=== PATIENT | female | born 1950 | race Caucasian/White ===

== ENCOUNTER 2019-10-10 12:25 | Inpatient (IN) | payer MEDICARE, SELFPAY ==
[2019-10-10 14:38] VITALS: BP 134/70; PULSE 98; RESP 16; TEMP 37; O2SAT 95; BMI 31.8
--- NOTE | 2019-10-10 15:22 | ED_ITS ---
Documented by User: LAUREN Mercedes 10/10/19 17:39 HPI - Skin/Abscess/Foreign Bdy General: Chief complaint: Skin/Abscess/Foreign Body Stated complaint: abscess Time Seen by Provider: 10/10/19 15:08 History of Present Illness: HPI narrative: Patient is a 68-year-old female comes to the ED due to abscess. Patient was seen yesterday at [facility] and abscess was incised and drained. Patient says packing was placed and abscess wa s draining bloody and purulent drainage all night last night. Today patient complains of having more pain. Patient went back to [facility] today and they evaluated abscess and thought patient needed to come to the ED for reevaluation and IV antibiotics. Patient was put on antibiotic (clindamycin) last night and is taken 2 doses of it. Patient did say last night she felt like she had a fever and chills. No history of MRSA or staph infections. Associated symptoms: Reports fever(s); Deny chills, nausea or vomiting Review of Systems Const: Reports: fever(s); Denies: chills or fatigue Eyes: Denies: change in vision or eye discomfort ENMT: Denies: throat pain, odynophagia, nasal discharge or nasal congestion Card: Denies: chest pain, palpitations, edema, swelling of feet/ankles, dyspnea on exertion or orthopnea Resp: Denies: dyspnea, productive cough or non-productive cough GI: Denies: abdominal pain, nausea, vomiting, diarrhea, constipation or hematochezia : Denies: flank pain, dysuria or hematuria Musc: Denies: neck pain, back pain or extremity swelling Skin/Breast: Reports: new lesions (genital abscess); Denies: rash Neuro: Denies: headache(s), numbness in extremities or weakness in extremities PFSH ED PFSH: Social History Smoking and tobacco status: never smoked Physical Exam Const: COMMON NORMALS: no acute distress, patient oriented x3 and alert GENERAL APPEARANCE: cooperative HENMT: COMMON NORMALS: normocephalic HEAD & SCALP: normocephalic MOUTH: Normal oral and palatal mucosa present THROAT: posterior oropharynx normal and uvula midline Eye: COMMON NORMALS: Equal, round and reactive pupils present PUPIL: Yes Equal, round and reactive pupils present Neck/C-Spine: COMMON NORMALS: supple GENERAL: Yes normal visual inspection Resp: COMMON NORMALS: normal respiratory effort, No retractions, No use of accessory muscles and clear to auscultation bilaterally AUSCULTATION: clear to auscultation bilaterally Cardio: COMMON NORMALS: regular rate, regular rhythm, S1 normal heart sound present, S2 normal heart sound present, No gallops present (Cardio), No clicks present (Cardio), No murmurs present (Cardio) and Peripheral pulses 2+ throughout RATE: regular rate RHYTHM: regular rhythm HEART SOUNDS: S1 normal heart sound present and S2 normal heart sound present PERIPHERAL PULSES: Peripheral pulses 2+ throughout GI: COMMON NORMALS: Normal to inspection, nondistended, normoactive bowel sounds present, Soft to palpation, non-tender and no masses PALPATION: Yes Soft to palpation : COMMON NORMALS: Yes no CVA tenderness BLADDER/KIDNEY EXAM: Yes no CVA tenderness EXTERNAL FEMALE EXAM: Yes lesion left labial pustule (Tender, abscess that is currently draining thick malodorous purulent discharge.) 2.5 cm Back/Pelvis: COMMON NORMALS: no CVA tenderness Extremity: COMMON NORMALS: normal to inspection and no pedal edema Neuro: COMMON NORMALS: patient oriented x3 and moves all extremities SENSORIUM/ORIENTATION: Yes alert Skin: NARRATIVE SKIN EXAM: Patient currently has Bartholin's abscess on left labia majora. It is currently open and actively draining. It is extremely tender and has surrounding erythema. Course Consultations: Consultation #1: I contacted Dr. Thomas about patient's case to get his input on patient's care. He informed me that to properly drain a bartholin's abscess there needs to be about a 1cm long incision to properly drain abscess. A smaller incision will now allow proper drainage. I told Dr. Thomas that current incision is very small and he told me perform another I&D and create 1cm long incision to allow it to drain. He said the antibiotics of vanc and clinda are fine, but if you properly drain it will get better. Time: 17:21 Vital Signs: Vital signs: Vital Signs Temperature 98.6 F 10/10/19 14:38 Pulse Rate 99 10/10/19 18:18 Respiratory Rate 14 10/10/19 18:18 Blood Pressure 117/67 10/10/19 18:18 Pulse Oximetry 92 10/10/19 18:18 MDM - Skin/Abscess/Foreign Bdy MDM Narrative: Medical decision making narrative: Pt care was handed over to Emma Gunn PA-C. I told Emma about my consult with Dr. Thomas and a 1cm long incision should be made to better drain abscess. Pt started on IV Clindamycin and vancomycin. WBC of 16.3 and Cr of 1.4. She was given IV zofran and morphine for pain. Emma will be performing the I & D and then will manage discharge. Lab Data: Attestation: I reviewed the patient's lab results. Labs: Lab Results 10/10/19 10/10/19 10/10/19 Range/Units 16:45 16:45 16:45 WBC 16.3 H (4.0-10.0) 10^3/ uL RBC 3.10 L (4.1-5.3) 10^6/u L Hgb 10.6 L (11.5-15.3) g/dL Hct 33.3 L (37.0-47.0) % MCV 107.4 H (81-99) fL MCH 34.2 H (28.0-34.0) pg MCHC 31.8 (30.0-36.0) g/dL RDW 14.0 (12.1-15.1) % Plt Count 206 (130-400) 10^3/c mm MPV 9.3 (7.4-10.4) fL Neut % (Auto) 78.3 % Lymph % (Auto) 11.2 % Sutter % (Auto) 6.9 % Eos % (Auto) 2.8 % Baso % (Auto) 0.4 % Neut # (Auto) 12.8 H (1.8-7.7) 10^3/u L Lymph # (Auto) 1.8 (0.8-4.8) 10^3/u L Sutter # (Auto) 1.1 H (0.2-0.9) 10^3/u L Eos # (Auto) 0.5 (0.0-0.8) 10^3/u L Baso # (Auto) 0.1 (0.0-0.1) 10^3/u L Nucleated RBC % (a uto) 0 % Nucleated RBCs # 0.0 /100WBC ESR 68 H (0-15) mm/hr Sodium 138 (136-145) mmol/L Potassium 4.8 (3.5-5.1) mmol/L Chloride 98 (98-107) mmol/L Carbon Dioxide 25 (22-29) mmol/L Anion Gap 19.8 H (5-19) BUN 17 (8-23) mg/dL Creatinine 1.4 H (0.5-0.9) mg/dL GFR Calculation 37.3 L (90-130) mL/min Glucose 141 H (65-115) mg/dL Estimat Average Gl ucose Hemoglobin A1c (4.0-6.0) % Calculated Osmolal ity 285 (285-295) mOsm/k g Lactate (0.5-2.2) mmol/L Calcium 9.4 (8.5-10.5) mg/dL Total Bilirubin 0.3 (0.15-1.2) mg/dL AST 29 (0-32) U/L ALT 34 H (0-33) U/L Alkaline Phosphata se 81 (35-105) IU/L C-Reactive Protein 129.5 H (0.0-4.9) mg/L Total Protein 6.4 L (6.6-8.7) g/dL Albumin 3.9 (3.5-5.2) g/dL Globulin 2.5 (1.3-4.6) g/dL 10/10/19 10/10/19 Range/Units 16:45 16:45 WBC (4.0-10.0) 10^3/ uL RBC (4.1-5.3) 10^6/u L Hgb (11.5-15.3) g/dL Hct (37.0-47.0) % MCV (81-99) fL MCH (28.0-34.0) pg MCHC (30.0-36.0) g/dL RDW (12.1-15.1) % Plt Count (130-400) 10^3/c mm MPV (7.4-10.4) fL Neut % (Auto) % Lymph % (Auto) % Sutter % (Auto) % Eos % (Auto) % Baso % (Auto) % Neut # (Auto) (1.8-7.7) 10^3/u L Lymph # (Auto) (0.8-4.8) 10^3/u L Sutter # (Auto) (0.2-0.9) 10^3/u L Eos # (Auto) (0.0-0.8) 10^3/u L Baso # (Auto) (0.0-0.1) 10^3/u L Nucleated RBC % (a uto) % Nucleated RBCs # /100WBC ESR (0-15) mm/hr Sodium (136-145) mmol/L Potassium (3.5-5.1) mmol/L Chloride (98-107) mmol/L Carbon Dioxide (22-29) mmol/L Anion Gap (5-19) BUN (8-23) mg/dL Creatinine (0.5-0.9) mg/dL GFR Calculation (90-130) mL/min Glucose (65-115) mg/dL Estimat Average Gl ucose 151 Hemoglobin A1c 6.9 H (4.0-6.0) % Calculated Osmolal ity (285-295) mOsm/k g Lactate 0.2 L (0.5-2.2) mmol/L Calcium (8.5-10.5) mg/dL Total Bilirubin (0.15-1.2) mg/dL AST (0-32) U/L ALT (0-33) U/L Alkaline Phosphata se (35-105) IU/L C-Reactive Protein (0.0-4.9) mg/L Total Protein (6.6-8.7) g/dL Albumin (3.5-5.2) g/dL Globulin (1.3-4.6) g/dL Discharge Plan Discharge Patient Disposition: Admitted As Inpatient Clinical Impression: Abscess, perianal Diabetes Qualifiers: Diabetes mellitus type: type 2 Condition: Stable Referrals: Rosalino Almaraz DO [Primary Care Provider] - Sign Out Sign Out Data: Patient Sign Out occurred on 10/10/19 at 17:20. Patient's care was discussed, and care was transferred from to LAUREN Marrero. Coding Level of Care Code ED Assistant County Attorney for [employer]g Fwd Exam Comprehensive Documented by User: LAUREN Marrero 10/10/19 19:36 HPI - Skin/Abscess/Foreign Bdy General: Chief complaint: Skin/Abscess/Foreign Body Stated complaint: abscess Time Seen by Provider: 10/10/19 15:08 Source: patient Limitations: no limitations History of Present Illness: HPI narrative: Patient is a 68-year-old female who presents to ED today with an abscess to her perineal region. Patient was seen at [facility] yesterday and had abscess incised and drained. They had placed packing in the abscess but patient tells me it fell out in the middle of the night. She was seen again at their facility today and told to come to the emerg ency department for further evaluation. Patient tells me she was soaking through her dressings in the middle of the night due to the amount of discharge/drainage. She tells me she was running fevers of 102 throughout the night and was soaking her bed sheets because she was sweating. Patient is a diabetic-reports sugars normally run in the 130s. She reports an extremely painful bowel movement earlier today. MD complaint: abscess/boil Onset (ago): day(s) Tetanus up to date: yes Location: genitals (perineal region) Associated symptoms: Reports chills and fever(s); Deny nausea or vomiting Review of Systems Const: Reports: fever(s), chills and night sweats; Denies: body aches, fatigue or malaise Card: Denies: chest pain Resp: Denies: dyspnea GI: Reports: pain on defecation; Denies: abdominal pain, nausea or vomiting : Denies: flank pain, difficulty voiding, dysuria, urinary frequency, urinary urgency or urinary hesitancy Musc: Denies: neck pain or back pain Skin/Breast: Reports: other (abscess) [facility] ED PFSH: Social History Smoking and tobacco status: never smoked Physical Exam Const: COMMON NORMALS: no acute distress, patient oriented x3, no limitations and alert Resp: COMMON NORMALS: normal respiratory effort and clear to auscultation bilaterally AUSCULTATION: clear to auscultation bilaterally Cardio: COMMON NORMALS: regular rhythm RATE: tachycardic (mild-102) RHYTHM: regular rhythm GI: COMMON NORMALS: Normal to inspection, nondistended, normoactive bowel sounds present, Soft to palpation, non-tender, No hepatosplenomegaly present and no masses PALPATION: Yes Soft to palpation and Yes No hepatosplenomegaly present OTHER: pt has a large 2-3 inch indurated abscess to L anorectal region; it is about 1-2cm lateral to L anal verge and very tender to palpation; there is a small incision that was made yesterday that has now closed; area is erythematous Neuro: COMMON NORMALS: patient oriented x3 SENSORIUM/ORIENTATION: Yes alert Course Consultations: Consultation #1: Dr. Crowell-will consult on patient while in hospital Additional Consultation(s): Dr. Dwyer-will admit patient Vital Signs: Vital signs: Vital Signs Temperature 98.6 F 10/10/19 14:38 Pulse Rate 99 10/10/19 18:18 Respiratory Rate 14 10/10/19 18:18 Blood Pressure 117/67 10/10/19 18:18 Pulse Oximetry 92 10/10/19 18:18 MDM - Skin/Abscess/Foreign Bdy MDM Narrative: Medical decision making narrative: pt has reported fevers of 102, white count of 16,000, elevated ESR/CRP, and is a diabetic; spoke to general surgery who agrees she needs to come in for IV abx; he will evaluate her in the morning; spoke to hospitalist who will admit Lab Data: Labs: Lab Results 10/10/19 10/10/19 10/10/19 Range/Units 16:45 16:45 16:45 WBC 16.3 H (4.0-10.0) 10^3/ uL RBC 3.10 L (4.1-5.3) 10^6/u L Hgb 10.6 L (11.5-15.3) g/dL Hct 33.3 L (37.0-47.0) % MCV 107.4 H (81-99) fL MCH 34.2 H (28.0-34.0) pg MCHC 31.8 (30.0-36.0) g/dL RDW 14.0 (12.1-15.1) % Plt Count 206 (130-400) 10^3/c mm MPV 9.3 (7.4-10.4) fL Neut % (Auto) 78.3 % Lymph % (Auto) 11.2 % Sutter % (Auto) 6.9 % Eos % (Auto) 2.8 % Baso % (Auto) 0.4 % Neut # (Auto) 12.8 H (1.8-7.7) 10^3/u L Lymph # (Auto) 1.8 (0.8-4.8) 10^3/u L Sutter # (Auto) 1.1 H (0.2-0.9) 10^3/u L Eos # (Auto) 0.5 (0.0-0.8) 10^3/u L Baso # (Auto) 0.1 (0.0-0.1) 10^3/u L Nucleated RBC % (a uto) 0 % Nucleated RBCs # 0.0 /100WBC ESR 68 H (0-15) mm/hr Sodium 138 (136-145) mmol/L Potassium 4.8 (3.5-5.1) mmol/L Chloride 98 (98-107) mmol/L Carbon Dioxide 25 (22-29) mmol/L Anion Gap 19.8 H (5-19) BUN 17 (8-23) mg/dL Creatinine 1.4 H (0.5-0.9) mg/dL GFR Calculation 37.3 L (90-130) mL/min Glucose 141 H (65-115) mg/dL Estimat Average Gl ucose Hemoglobin A1c (4.0-6.0) % Calculated Osmolal ity 285 (285-295) mOsm/k g Lactate (0.5-2.2) mmol/L Calcium 9.4 (8.5-10.5) mg/dL Total Bilirubin 0.3 (0.15-1.2) mg/dL AST 29 (0-32) U/L ALT 34 H (0-33) U/L Alkaline Phosphata se 81 (35-105) IU/L C-Reactive Protein 129.5 H (0.0-4.9) mg/L Total Protein 6.4 L (6.6-8.7) g/dL Albumin 3.9 (3.5-5.2) g/dL Globulin 2.5 (1.3-4.6) g/dL 10/10/19 10/10/19 Range/Units 16:45 16:45 WBC (4.0-10.0) 10^3/ uL RBC (4.1-5.3) 10^6/u L Hgb (11.5-15.3) g/dL Hct (37.0-47.0) % MCV (81-99) fL MCH (28.0-34.0) pg MCHC (30.0-36.0) g/dL RDW (12.1-15.1) % Plt Count (130-400) 10^3/c mm MPV (7.4-10.4) fL Neut % (Auto) % Lymph % (Auto) % Sutter % (Auto) % Eos % (Auto) % Baso % (Auto) % Neut # (Auto) (1.8-7.7) 10^3/u L Lymph # (Auto) (0.8-4.8) 10^3/u L Sutter # (Auto) (0.2-0.9) 10^3/u L Eos # (Auto) (0.0-0.8) 10^3/u L Baso # (Auto) (0.0-0.1) 10^3/u L Nucleated RBC % (a uto) % Nucleated RBCs # /100WBC ESR (0-15) mm/hr Sodium (136-145) mmol/L Potassium (3.5-5.1) mmol/L Chloride (98-107) mmol/L Carbon Dioxide (22-29) mmol/L Anion Gap (5-19) BUN (8-23) mg/dL Creatinine (0.5-0.9) mg/dL GFR Calculation (90-130) mL/min Glucose (65-115) mg/dL Estimat Average Gl ucose 151 Hemoglobin A1c 6.9 H (4.0-6.0) % Calculated Osmolal ity (285-295) mOsm/k g Lactate 0.2 L (0.5-2.2) mmol/L Calcium (8.5-10.5) mg/dL Total Bilirubin (0.15-1.2) mg/dL AST (0-32) U/L ALT (0-33) U/L Alkaline Phosphata se (35-105) IU/L C-Reactive Protein (0.0-4.9) mg/L Total Protein (6.6-8.7) g/dL Albumin (3.5-5.2) g/dL Globulin (1.3-4.6) g/dL Imaging Data^: CT Abd/Pel: Radiologist's impression: [address] [address] [address] Scan Report Signed Patient: Milagro Olivarez Unit #: [id number] : 1950 Age/Sex: 68 / F ADM Date: 10/10/19 Loc: ER Room/Bed: Attending Dr: Ordering Provider/Ordering MD: Emma Gunn Date of Service: 10/10/19 Procedure(s): CT pelvis w con* [id number] Accession Number(s): [id number] Report Number: [id number] PROCEDURE INFORMATION: Exam: CT Pelvis With Contrast Exam date and time: 10/10/2019 5:35 PM Age: 68 years old Clinical indication: Other: Perianal abscess; Perianal pain; Prior surgery; Surgery type: Hysto, appy; Additional info: Perirectal/perianal abscess TECHNIQUE: Imaging protocol: Computed tomography images of the pelvis with intravenous contrast. Radiation optimization: All CT scans at this facility use at least one of these dose optimization techniques: automated exposure control; mA and/or kV adjustment per patient size (includes targeted exams where dose is matched to clinical indication); or iterative reconstruction. Contrast material: VISI 320; Contrast volume: 95 ml; Contrast route: INTRAVENOUS (IV); COMPARISON: No relevant prior studies available. RADIATION DOSE METRICS: Total DLP (mGy-cm): 1011.7 FINDINGS: Stomach and bowel: Mild diverticulosis is present in the distal colon. There is no evidence of colitis/diverticulitis. There is no evidence of intestinal perforation or obstruction. Appendix: No evidence of appendicitis. Intraperitoneal space: Unremarkable. No free air. No significant fluid collection. Vasculature: The aorta demonstrates mild atherosclerotic calcification. Lymph nodes: Multiple subcentimeter lymph nodes are noted in the groin bilaterally. There is a lymph node in the left groin that measures 1.3 cm in short axis. Bladder: There is nonspecific bladder wall thickening. This may be related to incomplete distention. Reproductive: Normal as visualized. There has been a hysterectomy. Bones/joints: There are [id number] degenerative changes in the spine and hips. Soft tissues: There is prominent soft tissue density and skin thickening in the left perianal region compatible with infection/phlegmon without an abscess. No gas in the soft tissues of the perineum. No additional inflammatory changes or phlegmon. The left perianal phlegmon has ill-defined borders without a well-defined enhancing rim. And measures 3.2 x 5.9 by 5.6 cm (superior to inferior, medial to lateral, AP) in size. Other findings: Mild wall thickening of the anus is noted. CT/CT pelvis w con* [id number] IMPRESSION: Prominent left perianal infection/phlegmon without a peripherally enhancing fluid collection or distinct abscess. Radiation Dose CTDIVOL = (mGy): DLP = 1011.7 (mGy-cm) Dictated By: Alis Robison Signed By: Alis Robison Signed Date/Time: 10/10/191821 DD/ 19 Discharge Plan Discharge Patient Disposition: Admitted As Inpatient Clinical Impression: Abscess, perianal Diabetes Qualifiers: Diabetes mellitus type: type 2 Condition: Stable Referrals: Rosalino Almaraz DO [Primary Care Provider] - Sign Out Sign Out Data: Patient Sign Out occurred on 10/10/19 at 17:20. Patient's care was discussed, and care was transferred from to LAUREN Marrero. Coding Level of Care Code ED Assistant County Attorney for Chg Fwd Exam Comprehensive
[2019-10-10] MEDS: HYDROcodone-acetaminophen 7.5-325 mg Tablet 1 TAB PO (16:11)
[2019-10-10 16:16] VITALS: BP 147/69; PULSE 102; RESP 14; O2SAT 96
[2019-10-10 16:52] LABS: Basophils # 0.1 10^3/uL (0.0-0.1); Basophils % 0.4 %; Eosinophils # 0.5 10^3/uL (0.0-0.8); Eosinophils % 2.8 %; Hematocrit 33.3 % (37.0-47.0); Hemoglobin 10.6 g/dL (11.5-15.3); Lymphocytes # 1.8 10^3/uL (0.8-4.8); Lymphocytes % 11.2 %; Mean Corpuscular HGB Conc 31.8 g/dL (30.0-36.0); Mean Corpuscular Hemoglobin 34.2 pg (28.0-34.0); Mean Corpuscular Volume 107.4 fL (81-99); Mean Platelet Volume 9.3 fL (7.4-10.4); Monocytes # 1.1 10^3/uL (0.2-0.9); Monocytes % 6.9 %; Neutrophils # 12.8 10^3/uL (1.8-7.7); Neutrophils % 78.3 %; Nucleated Red Blood Cells % 0 %; Platelet Count 206 10^3/cmm (130-400); White Blood Count 16.3 10^3/uL (4.0-10.0)
[2019-10-10] MEDS: morphine 4 mg/mL SDV 1 mL IVP ×2 (17:03→19:44)
[2019-10-10] MEDS: ondansetron 2 mg/ML SDV 2 mL 4 MG IVP (17:03)
[2019-10-10] MEDS: clindamycin 600 MG/50 ML PREMIX 100 MG IV (17:04)
[2019-10-10] MEDS: sodium chloride 0.9% 500 ML IV (17:04)
[2019-10-10 17:09] LABS: Alanine Aminotransferase 34 U/L (0-33); Albumin Level 3.9 g/dL (3.5-5.2); Alkaline Phosphatase 81 IU/L (35-105); Anion Gap 19.8 (5-19); Aspartate Amino Transferase 29 U/L (0-32); Blood Urea Nitrogen 17 mg/dL (8-23); Calcium 9.4 mg/dL (8.5-10.5); Carbon Dioxide 25 mmol/L (22-29); Chloride 98 mmol/L (98-107); Globulin 2.5 g/dL (1.3-4.6); Glomerular Filtration Rate 37.3 mL/min (90-130); Glucose 141 mg/dL (65-115); Osmolality Calculated 285 mOsm/kg (285-295); Potassium 4.8 mmol/L (3.5-5.1); Sodium 138 mmol/L (136-145); Total Bilirubin 0.3 mg/dL (0.15-1.2); Total Protein 6.4 g/dL (6.6-8.7)
--- NOTE | 2019-10-10 17:29 | CTR_ITS ---
PROCEDURE INFORMATION: Exam: CT Pelvis With Contrast Exam date and time: 10/10/2019 5:35 PM Age: 68 years old Clinical indication: Other: Perianal abscess; Perianal pain; Prior surgery; Surgery type: Hysto, appy; Additional info: Perirectal/perianal abscess TECHNIQUE: Imaging protocol: Computed tomography images of the pelvis with intravenous contrast. Radiation optimization: All CT scans at this facility use at least one of these dose optimization techniques: automated exposure control; mA and/or kV adjustment per patient size (includes targeted exams where dose is matched to clinical indication); or iterative reconstruction. Contrast material: VISI 320; Contrast volume: 95 ml; Contrast route: INTRAVENOUS (IV); COMPARISON: No relevant prior studies available. RADIATION DOSE METRICS: Total DLP (mGy-cm): 1011.7 FINDINGS: Stomach and bowel: Mild diverticulosis is present in the distal colon. There is no evidence of colitis/diverticulitis. There is no evidence of intestinal perforation or obstruction. Appendix: No evidence of appendicitis. Intraperitoneal space: Unremarkable. No free air. No significant fluid collection. Vasculature: The aorta demonstrates mild atherosclerotic calcification. Lymph nodes: Multiple subcentimeter lymph nodes are noted in the groin bilaterally. There is a lymph node in the left groin that measures 1.3 cm in short axis. Bladder: There is nonspecific bladder wall thickening. This may be related to incomplete distention. Reproductive: Normal as visualized. There has been a hysterectomy. Bones/joints: There are [id number] degenerative changes in the spine and hips. Soft tissues: There is prominent soft tissue density and skin thickening in the left perianal region compatible with infection/phlegmon without an abscess. No gas in the soft tissues of the perineum. No additional inflammatory changes or phlegmon. The left perianal phlegmon has ill-defined borders without a well-defined enhancing rim. And measures 3.2 x 5.9 by 5.6 cm (superior to inferior, medial to lateral, AP) in size. Other findings: Mild wall thickening of the anus is noted. CT/CT pelvis w con* [id number] IMPRESSION: Prominent left perianal infection/phlegmon without a peripherally enhancing fluid collection or distinct abscess. Radiation Dose CTDIVOL = (mGy): DLP = 1011.7 (mGy-cm)
[2019-10-10 17:33] LABS: Erythrocyte Sedimentation Rate 68 mm/hr (0-15)
[2019-10-10 17:45] LABS: C Reactive Protein 129.5 mg/L (0.0-4.9)
[2019-10-10] MEDS: iodixanol 320 mg/mL 100mL Btl IV (18:00)
[2019-10-10 18:18] VITALS: BP 117/67; PULSE 99; RESP 14; O2SAT 92
[2019-10-10] MEDS: piperacillin-tazobactam 3.375 GM in sodium chloride 0.9% (plus) 50 ML IV (18:22)
[2019-10-10] MEDS: sodium chloride 0.9% 1,000 ML 999 ML IV (18:27)
[2019-10-10] MEDS: lidocaine 2% INJ 20 mL INJECTION (18:27)
[2019-10-10 18:31] LABS: Lactate (Lactic Acid level) 0.2 mmol/L (0.5-2.2)
[2019-10-10 19:15] LABS: Estmated Average Glucose 151; Hemoglobin A1C 6.9 % (4.0-6.0)
[2019-10-10] MEDS: vancomycin 1,000 MG in sodium chloride 0.9% 250 ML 250 MG IV (19:46)
[2019-10-10 19:50] VITALS: BP 129/72; PULSE 93; RESP 14; O2SAT 95
--- NOTE | 2019-10-10 20:08 | PM.HP ---
Providers/Chief Complaint Admitting Physician: Rico Dwyer Primary Care Provider: Rosalino Almaraz DO Chief Complaint: abscess History of Present Illness Milagro Olivarez is a very pleasant 68 year old lady who developed malaise and fever at home last week, perineal discomfort, subsequently with development of perirectal abscess which was incised and drained at [facility] yesterday, with packing, and was started on clindamycin. She reports that overnight she continued having drainage, and worse previously swelling/tenderness was mostly confined to perineum, today it had spread down posteriorly in her left buttock and towards the rectum. She reported blood-tinged purulent discharge, foul smelling. She reports fever at home up to 102. In ER here she is afebrile. She does have tachycardia heart rate in the 90s. There is firmness, swelling, tenderness and erythema of the left side perineal region, as well as left side inferior, posterior gluteus and perirectal area. CT abdomen pelvis showed prominent left perianal infection/phlegmon without peripherally enhancing fluid collection or distinct abscess. She is started on IV antibiotics, and is going to be evaluated by surgery. Review of Systems Const: Reports: malaise; Denies: fever(s), chills or body aches Eyes: Denies: change in vision or eye redness ENMT: Denies: throat pain, oral sores or ear or mastoid pain Card: Denies: chest pain, edema, pre-syncope or dyspnea on exertion Resp: Denies: dyspnea, productive cough, change in phlegm color or hemoptysis GI: Denies: abdominal pain, nausea, vomiting, diarrhea, constipation, hematochezia or melena : Denies: flank pain, urinary frequency or hematuria Musc: Denies: back pain, joint swelling or joint redness Skin/Breast: Reports: erythema and skin swelling (Left side perineal, perianal, and inferior left gluteus); Denies: rash, sores or new lesions Neuro: Denies: headache(s), numbness in extremities, weakness in extremities, dizziness, confusion or seizure-like activity Endo: Denies: polyuria or polydipsia Sameer/Lymph: Denies: easy bleeding or purpura All/Imm: Denies: urticaria, throat swelling or tongue swelling Medications/Allergies Home Medications Medication Instructions Recorded Confirmed Last Taken Type cholecalciferol (vitamin D3) 125 mcg PO DAILY 10/10/19 10/10/19 10/10/19 History [Vitamin D3] citalopram 20 mg PO DAILY 10/10/19 10/10/19 10/10/19 History clindamycin HCl 300 mg PO Q8H 10/10/19 10/10/19 10/10/19 History gabapentin 600 mg PO BID 10/10/19 10/10/19 10/10/19 History glipizide 5 mg PO BID 10/10/19 10/10/19 10/10/19 History hydrocodone-acetaminophen 1 tab PO PRN 10/10/19 10/10/19 10/09/19 History lisinopril 20 mg PO DAILY 10/10/19 10/10/19 10/10/19 History metformin 1,000 mg PO BID 10/10/19 10/10/19 10/10/19 History sitagliptin [Januvia] 100 mg PO DAILY 10/10/19 10/10/19 10/10/19 History Allergies Allergy/AdvReac Type Severity Reaction Status Date / Time Sulfa (Sulfonamide Allergy ALGY-Swell Verified 10/10/19 15:25 Antibiotics) Lip/Tongue/Throat PFSH Acute PFSH: Medical History Diabetes Fibromyalgia HTN (hypertension) Surgical History H/O foot surgery H/O vaginal surgery H/O vein stripping H/O: hysterectomy Family History Mother Multiple myeloma Social History Smoking and tobacco status: never smoked Alcohol intake: never Substance/Drug Use: never Household members: spouse Marital status: Current occupational status: retired Vitals/I&O/Wt Last Vital Signs Temp 98.6 F 10/10/19 14:38 Pulse 93 10/10/19 19:50 Resp 14 10/10/19 19:50 BP 129/72 10/10/19 19:50 Pulse Ox 95 10/10/19 19:50 10/10/19 10/10/19 10/10/19 06:59 14:59 22:59 Intake Total 550 / 550 Balance 550 / 550 Weight last 48 hrs Weight 86.636 kg Physical Exam Const: COMMON NORMALS: no acute distress and patient oriented x3 GENERAL APPEARANCE: anxious NUTRITIONAL APPEARANCE: obese HENMT: COMMON NORMALS: oropharynx normal Neck/C-Spine: COMMON NORMALS: no JVD Resp: COMMON NORMALS: normal respiratory effort and clear to auscultation bilaterally AUSCULTATION: clear to auscultation bilaterally Cardio: COMMON NORMALS: no JVD, regular rhythm, S1 normal heart sound present, S2 normal heart sound present and No murmurs present (Cardio) RHYTHM: regular rhythm HEART SOUNDS: S1 normal heart sound present and S2 normal heart sound present GI: COMMON NORMALS: Normal to inspection, nondistended, normoactive bowel sounds present, Soft to palpation and non-tender PALPATION: Yes Soft to palpation OTHER: perianal swelling, redness, tenderness, L side perineal area, L inferior gluteus Extremity: COMMON NORMALS: no joint enlargement and no pedal edema Neuro: COMMON NORMALS: patient oriented x3 and moves all extremities Skin: COMMON NORMALS: no rashes or lesions noted GENERAL SKIN EXAM: no rashes or lesions noted Data : 10/10/19 16:45 10/10/19 16:45 Micro: Microbiology 10/10/19 16:45 Blood Culture - Preliminary Blood SPECIMEN COLLECTED 10/10/19 16:46 Blood Culture - Preliminary Blood SPECIMEN COLLECTED A&P Assessment and plan (1) Abscess, perianal: S/p I&D and packing, with significant soft tissue swelling. I&D on 10/08 [facility] and was started on clindamycin. Still had progression of symptoms. Currently with sepsis with leukocytosis 16.3, tachycardia 90s. Fever at home. Cannot exclude severe sepsis given creatinine 1.4, with acute kidney injury, although this may also be secondary to malaise, poor oral intake, lisinopril. Blood pressure has been stable in ER. CT abdomen pelvis with persistent left perianal infection/phlegmon without a peripherally enhancing fluid collection or distinct abscess. Given progression of swelling, tenderness, as well as sepsis, likely will need additional evaluation, for which surgery will see her. Likely under anesthesia due to significant tenderness in the area. Blood and wound cultures have been ordered. And I see a culture from the original I&D, perhaps this may be requested from Ilya Oleary. Does not appear as Fornier's gangrene at this time and risk is lower, however, given progression and sepsis despite I&D for now continue Clinnda. Please reassess and discontinune if no longer necessary. Zosyn. Will change vancomycin to linezolid for now due to OTILIA. Status: Acute (2) Diabetes: Hold PO meds for now. SSI. Resume Cons carb diet. Status: Acute Qualifiers: Diabetes mellitus type: type 2 Additional A&P Information HTN Fibromyalgia Attestations Medical Necessity Statement*: Admission of over 2 midnights is going to be needed for assessment of management of sepsis relating to perianal abscess with worsening despite outpatient treatment. Coding Level of Care Code Acute Development Officer for Ruchi Bassett Diagnoses Abscess, perianal K61.0 Diabetes E11.9 Diabetes mellitus type: type 2
[2019-10-10 20:45] VITALS: BP 145/72; PULSE 88; RESP 20; TEMP 36.7; O2SAT 99
[2019-10-10] MEDS: heparin 5,000 unit/mL INJ 1 mL 5000 UNIT SUBCUT (21:44)
[2019-10-10] MEDS: lactated ringers 1,000 ML 100 ML IV (21:44)
[2019-10-10] MEDS: linezolid premix 600 MG/300 ML PREMIX 300 MG IV (21:45)
[2019-10-10 22:04] LABS: Glucose Point of Care 113 mg/dL (70-110)
[2019-10-11] VITALS (18 sets, daily range): BP systolic 99–170; BP diastolic 52–85; PULSE 70–100; RESP 12–22; TEMP 36.3–39.2; O2SAT 92–100
[2019-10-11] MEDS: clindamycin 600 MG/50 ML PREMIX 100 MG IV ×2 (00:25→08:01)
[2019-10-11] MEDS: acetaminophen 325 mg Tablet 650 MG PO ×2 (00:32→06:21)
[2019-10-11 02:28] LABS: Basophils % 0.3 %; Eosinophils # 0.5 10^3/uL (0.0-0.8); Eosinophils % 3.6 %; Hematocrit 26.8 % (37.0-47.0); Hemoglobin 8.6 g/dL (11.5-15.3); Lymphocytes # 2.3 10^3/uL (0.8-4.8); Lymphocytes % 17.9 %; Mean Corpuscular HGB Conc 32.1 g/dL (30.0-36.0); Mean Corpuscular Hemoglobin 34.3 pg (28.0-34.0); Mean Corpuscular Volume 106.8 fL (81-99); Mean Platelet Volume 9.8 fL (7.4-10.4); Monocytes # 1.1 10^3/uL (0.2-0.9); Monocytes % 8.3 %; Neutrophils # 8.8 10^3/uL (1.8-7.7); Neutrophils % 69.7 %; Nucleated Red Blood Cells % 0 %; Platelet Count 178 10^3/cmm (130-400); Red Blood Count 2.51 10^6/uL (4.1-5.3); Red Cell Distribution Width 13.9 % (12.1-15.1); White Blood Count 12.7 10^3/uL (4.0-10.0)
[2019-10-11 02:49] LABS: Alanine Aminotransferase 29 U/L (0-33); Albumin Level 2.9 g/dL (3.5-5.2); Alkaline Phosphatase 63 IU/L (35-105); Anion Gap 13.7 (5-19); Aspartate Amino Transferase 24 U/L (0-32); Blood Urea Nitrogen 14 mg/dL (8-23); Calcium 8.2 mg/dL (8.5-10.5); Carbon Dioxide 25 mmol/L (22-29); Chloride 102 mmol/L (98-107); Globulin 2.1 g/dL (1.3-4.6); Glomerular Filtration Rate 44.5 mL/min (90-130); Glucose 156 mg/dL (65-115); Osmolality Calculated 281 mOsm/kg (285-295); Potassium 4.7 mmol/L (3.5-5.1); Sodium 136 mmol/L (136-145); Total Bilirubin 0.3 mg/dL (0.15-1.2)
[2019-10-11] MEDS: piperacillin-tazobactam 3.375 GM in sodium chloride 0.9% (plus) 50 ML IV ×3 (02:52→23:12)
--- NOTE | 2019-10-11 05:04 | PM.CONSULT ---
Providers/Reason For Consult Consulting Physican/Specialty*: Polo Crowell MD Reason for Consult*: Left perianal abscess Requesting Physcian: LAUREN Marrero Attending Physician: Rico Dwyer Primary Care Provider: Rosalino Almaraz DO History of Present Illness History of Present Illness Chief Complaint: I am hurting around my bottom History of present illness:Ms Milagro Olivarez is a pleasant 68 year old female, started to develop perianal discomfort last week associated with fever and lethargy and the patient undergone incision and drainage of perianal abscess yesterday at another facility and packing was done and was placed on clindamycin.Patient continued to have drainage per her description and discomfort and she reports foul-smelling with purulent discharge and a temperature of 102 recorded at home, patient came to the emergency department where she was further evaluated and a CT scan of the pelvis was obtained that showed left perianal phlegmon without peripherally enhancing fluid collection or distinct abscess. Patient was admitted to the hospitalist service for better management of diabetes and general surgery was consulted for further evaluation and potential intervention Review of Systems General: Reports: 10 or more systems reviewed and unremarkable except in HPI and below Meds/Allergies Home Medications and Allergies Home Medications Medication Instructions Recorded Confirmed Last Taken Type cholecalciferol (vitamin D3) 125 mcg PO DAILY 10/10/19 10/10/19 10/10/19 History [Vitamin D3] citalopram 20 mg PO DAILY 10/10/19 10/10/19 10/10/19 History clindamycin HCl 300 mg PO Q8H 10/10/19 10/10/19 10/10/19 History gabapentin 600 mg PO BID 10/10/19 10/10/19 10/10/19 History glipizide 5 mg PO BID 10/10/19 10/10/19 10/10/19 History hydrocodone-acetaminophen 1 tab PO PRN 10/10/19 10/10/19 10/09/19 History lisinopril 20 mg PO DAILY 10/10/19 10/10/19 10/10/19 History metformin 1,000 mg PO BID 10/10/19 10/10/19 10/10/19 History sitagliptin [Januvia] 100 mg PO DAILY 10/10/19 10/10/19 10/10/19 History Allergies Allergy/AdvReac Type Severity Reaction Status Date / Time Sulfa (Sulfonamide Allergy ALGY-Swell Verified 10/11/19 15:03 Antibiotics) Lip/Tongue/Throat Current Medications Current Medications Generic Name Dose Route Start Last Admin Trade Name Freq PRN Reason Stop Dose Admin Acetaminophen 650 mg 10/10/19 20:45 10/11/19 00:32 Tylenol PO 650 mg Q6H PRN Administration Mild/Mod Pain Or Temp >/= 101 Heparin Sodium (Beef Lung) 5,000 unit 10/10/19 20:45 10/10/19 21:44 Heparin SUBCUT 5,000 unit Q8H ABBI Administration Piperacillin Sod/Tazobactam 50 mls @ 12.5 mls/hr 10/11/19 02:30 10/11/19 02:52 Sod 3.375 gm/ Sodium Chloride IV 12.5 mls/hr Q8H ABBI Administration Protocol Linezolid 600 mg in 300 mls @ 300 mls/hr 10/10/19 21:00 10/10/19 21:45 Zyvox Premix IV 300 mls/hr Q12H ABBI Administration Protocol Clindamycin HCl/Dextrose 600 mg in 50 mls @ 100 mls/hr 10/11/19 01:00 10/11/19 00:25 Cleocin IV 100 mls/hr Q8H ABBI Administration Protocol Lactated Ringer's 1,000 mls @ 100 mls/hr 10/10/19 20:45 10/10/19 21:44 Lactated Ringers IV 100 mls/hr .Q10H ABBI Administration Insulin Aspart 0 unit 10/10/19 21:00 10/10/19 21:44 Novolog SUBCUT Not Given WM&BEDTIME ABBI Protocol PFSH Acute PFSH: Medical History Diabetes Fibromyalgia HTN (hypertension) Surgical History H/O foot surgery H/O vaginal surgery H/O vein stripping H/O: hysterectomy Family History Mother Multiple myeloma Social History Smoking and tobacco status: never smoked Alcohol intake: never Substance/Drug Use: never Household members: spouse Marital status: Current occupational status: retired Vitals/I&O/Wt Last Vital Signs Temp 98.3 F 10/11/19 00:00 Pulse 80 10/11/19 00:00 Resp 16 10/11/19 00:00 BP 99/57 10/11/19 00:00 Pulse Ox 97 10/11/19 00:00 10/10/19 10/10/19 10/11/19 14:59 22:59 06:59 Intake Total 822 / 822 Balance 822 / 822 Weight last 48 hrs Weight 191 lb Physical Exam Narrative: EXAM NARRATIVE: Patient is conscious alert oriented X3 BMI 32 Head and neck examination PERRLA no masses no cervical lymphadenopathy no jaundice Cardiac examination audible S1-S2 no murmurs no gallops no arrhythmias Chest is clear bilateral,abscence of Rhonchi or wheezes,no surgical emphysema Abdomen nontender nondistended soft no organomegaly guarding or rigidity/no signs of peritonitis Obese Perianal examination was done in the presence of female piano instructor Guy patient's nursing staff, large indurated 7 x 5 cm area located at the left perianal region tender to touch with necrotic center and purulent discharge, does not seem to in involve the vaginal area. Extremities no cyanosis no clubbing no edema Data Micro: Micro: Microbiology 10/10/19 16:45 Blood Culture - Pr eliminary Blood SPECIMEN [facility] 10/10/19 16:46 Blood Culture - Pr eliminary Blood SPECIMEN [facility] A&P Assessment and plan (1) Abscess, perianal: After thorough history physical examination and reviewing the chart and images with my personal interpretation of the CT scan and further evaluating the patient I did awake overnight counselor the patient for examination under anesthesia and I&D the of left perianal abscess in the OR. Indications, risks, benefits and alternatives all discussed with the patient and she is aware of the potential complications associated with this procedure including not limited to injury of the external sphincter and potential incontinence. Also I did discuss with the patient about 1 of the potential complication that can happen is a perianal fistula development. Informed consent per chart We will continue coordinating with hospitalist service and will continue IV antibiotics for now Sitz bath 3-4 times a day in warm water with Epsom salt Assurance and education All questions have been answered and all concerns have been addressed to patient's satisfaction. Status: Acute Consult Attestations Medical Necessity Statement: Per Hospitalist service Time Spent in Patient Care: (>than 50% of time spent in counselling and/or direct pt care on unit). Coding Level of Care Code Acute Internal Revenue Agent for Chg Fwd Diagnoses Abscess, perianal K61.0
[2019-10-11] MEDS: heparin 5,000 unit/mL INJ 1 mL 5000 UNIT SUBCUT ×3 (05:20→22:22)
[2019-10-11 06:17] LABS: Glucose Point of Care 164 mg/dL (70-110)
[2019-10-11] MEDS: lactated ringers 1,000 ML 100 ML IV (07:56)
[2019-10-11] MEDS: linezolid premix 600 MG/300 ML PREMIX 300 MG IV (08:00)
[2019-10-11] MEDS: gabapentin 300 mg Capsule 600 MG PO (08:01)
[2019-10-11] MEDS: citalopram 20 mg Tablet PO (08:01)
--- NOTE | 2019-10-11 09:32 | PC.CHAP ---
Pastoral Care Encounter/Spiritual Assessment Type of Contact [] Declined umbrella supervisor visit [] Patient/Family/Request visit [] Outpatient visit [] Follow-up visit [] Physician referral [] Code/Alert [x] Routine visit [] Staff referral [] Actively dying [] Patient sleeping [] Family support [] [] Out of room [] Palliative care [] [] Receiving care in room [] Pre-surgical visit [] Trauma [] Long length of stay [] ICU visit [] Other: Relational/Emotional Strength [] Patient feels connected with others/family/visitors/staff [] Distress [] Loneliness/isolation [] Abandonment Spirituality of Patient [] Person of Sunita [] Attends Restorationism of their Sunita [] Believes in Prayer [] Reads Bible or Yarsanism materials [] There are Spiritual issues to be addressed Harness Worker Interventions [x] Prayer [] Active listening [] Non-anxious presence [] Spiritual/emotional support [] Crisis/trauma care [] Spiritual counseling [] Bereavement support [] Provided bereavement packet [] Provided Bible/devotional materials [] Provided toy/stuffed animal, coloring book to patient or family member [] Provided Communion [] Anointing/[place] [] Salvation [x] Completed spiritual assessment [] Other: Impact on Illness or Injury [] Angry [] Fearful [] Anxious [] Often cries [] Exhaustion [] Unable to work [] Unable to attend mormon [] Unable to walk/stand [] Unable to read [] Unable to drive [] Unable to eat/drink [] Unable to sleep [] Unable to be with family [] Patient intubated [] Other: Summary Patient trying to rest. lowered window covers. Patient looking forward to feeling stronger. Time spent with patient 10 min
[2019-10-11 10:49] LABS: Glucose Point of Care 159 mg/dL (70-110)
[2019-10-11] MEDS: HYDROcodone-acetaminophen 7.5-325 mg Tablet 1 TAB PO (11:00)
[2019-10-11] MEDS: sodium chloride 0.9% 1,000 ML 30 ML IV (14:12)
--- NOTE | 2019-10-11 14:22 | P.ANESASSM_ITS ---
Pre-Anesthetic Assessment Pre-Anesthetic Assessment: Height/Weight: Height 1.65 m Weight 86.636 kg Temp Pulse Resp BP Pulse Ox 97.4 F L 84 18 140/52 93 10/11/19 14:00 10/11/19 14:00 10/11/19 14:00 10/11/19 14:00 10/11/19 14:00 Preop Diagnosis: Left perianal abscess Proposed Procedure: Operation Date: 10/11/19 14:10 Proposed Procedures p Incision And Drainage left perianal abscess(Left) - Polo Crowell MD Last intake: Intake Last Liquid Date 10/10/19 Last Liquid Time 08:30 Last Solid Date 10/10/19 Last Solid Time 08:30 Social: Social History: No alcohol and No tobacco Exam: Pre-Anes Outpt Exam: alert, oriented x 3, clear to auscultation bilaterally and regular rate & rhythm Airway: Submandibular: WNL Cervical ROM: WNL MP: 2 Dentition: Partials (upper) History/ROS: No significant history except as noted Pulmonary: Pulmonary: None reported CV/HEM: CV/HEM: HTN : : None reported Hepatic: Hepatic: None reported GI: GI: None reported Metabolic: Metabolic: DM Musc/skel: Musc/skel: Lower Back Pain and OA/DJD Neuropsych: Neuropsych: Neuropathy (bilat feet) Anesthetic Plan: ASA status: 3 Anesthesia: Anesthesia Evaluation and General Other: TIVA Risk of > 500 ml blood loss (7ml/kg in children): No Other Pertinent Information: Severe PONV Meds/Allergies Current Medications: Current Medications Generic Name Dose Route Start Last Admin Trade Name Freq PRN Reason Stop Dose Admin Acetaminophen 650 mg 10/10/19 20:45 10/11/19 06:21 Tylenol PO 650 mg Q6H PRN Administration Mild/Mod Pain Or Temp >/= 101 Hydrocodone Bitart /Acetaminophen 1 tab 10/10/19 20:45 10/11/19 11:00 [place] 7.5-325 Mg PO 1 tab PRN ABBI Administration Citalopram Hydrobr omide 20 mg 10/11/19 09:00 10/11/19 08:01 Celexa PO 20 mg DAILY ABBI Administration Gabapentin 600 mg 10/11/19 09:00 10/11/19 08:01 Neurontin PO 600 mg BID ABBI Administration Heparin Sodium (Be ef Lung) 5,000 unit 10/10/19 20:45 10/11/19 12:01 Heparin SUBCUT 5,000 unit Q8H ABBI Administration Piperacillin Sod/T azobactam 50 mls @ 12.5 mls /hr 10/11/19 02:30 10/11/19 10:57 Sod 3.375 gm/ So dium Chloride IV 12.5 mls/hr Q8H ABBI Administration Protocol Linezolid 600 mg in 300 mls @ 300 mls/hr 10/10/19 21:00 10/11/19 09:00 Zyvox Premix IV Infused Q12H ABBI Infusion Protocol Clindamycin HCl/De xtrose 600 mg in 50 mls @ 100 mls/hr 10/11/19 01:00 10/11/19 08:31 Cleocin IV Infused Q8H ABBI Infusion Protocol Lactated Ringer's 1,000 mls @ 100 m ls/hr 10/10/19 20:45 10/11/19 07:56 Lactated Ringers IV 100 mls/hr .Q10H ABBI Administration Sodium Chloride 1,000 mls @ 30 ml s/hr 10/11/19 14:15 10/11/19 14:12 Sodium Chloride 0.9% IV 10/12/19 14:14 30 mls/hr .Q24H ABBI Administration Insulin Aspart 0 unit 10/10/19 21:00 10/11/19 11:03 Novolog SUBCUT Not Given WM&BEDTIME ABBI Protocol PFSH Anesthesia PFSH: Medical History Diabetes Fibromyalgia HTN (hypertension) Surgical History H/O foot surgery H/O vaginal surgery H/O vein stripping H/O: hysterectomy Family History Mother Multiple myeloma Social History Smoking and tobacco status: never smoked Alcohol intake: never Substance/Drug Use: never Household members: spouse Marital status: Current occupational status: retired Data Anesthesia CBC & Chem 7: 10/11/19 02:07 10/11/19 02:07 Other Labs: Laboratory Results - last 48 hr 10/10/19 10/10/19 10/10/19 16:45 16:45 16:45 WBC 16.3 H RBC 3.10 L Hgb 10.6 L Hct 33.3 L MCV 107.4 H MCH 34.2 H MCHC 31.8 RDW 14.0 Plt Count 206 MPV 9.3 Neut % (Auto) 78.3 Lymph % (Auto) 11.2 [place] % (Auto) 6.9 Eos % (Auto) 2.8 Baso % (Auto) 0.4 Neut # (Auto) 12.8 H Lymph # (Auto) 1.8 [place] # (Auto) 1.1 H Eos # (Auto) 0.5 Baso # (Auto) 0.1 Nucleated RBC % (auto) 0 Nucleated RBCs # 0.0 ESR 68 H Sodium 138 Potassium 4.8 Chloride 98 Carbon Dioxide 25 Anion Gap 19.8 H BUN 17 Creatinine 1.4 H GFR Calculation 37.3 L Glucose 141 H POC Glucose Estimat Average Glucose Hemoglobin A1c Calculated Osmolality 285 Lactate Calcium 9.4 Total Bilirubin 0.3 AST 29 ALT 34 H Alkaline Phosphatase 81 C-Reactive Protein 129.5 H Total Protein 6.4 L Albumin 3.9 Globulin 2.5 10/10/19 10/10/19 10/10/19 16:45 16:45 21:03 WBC RBC Hgb Hct MCV MCH MCHC RDW Plt Count MPV Neut % (Auto) Lymph % (Auto) [place] % (Auto) Eos % (Auto) Baso % (Auto) Neut # (Auto) Lymph # (Auto) [place] # (Auto) Eos # (Auto) Baso # (Auto) Nucleated RBC % (auto) Nucleated RBCs # ESR Sodium Potassium Chloride Carbon Dioxide Anion Gap BUN Creatinine GFR Calculation Glucose POC Glucose 113 Estimat Average Glucose 151 Hemoglobin A1c 6.9 H Calculated Osmolality Lactate 0.2 L Calcium Total Bilirubin AST ALT Alkaline Phosphatase C-Reactive Protein Total Protein Albumin Globulin 10/11/19 10/11/19 10/11/19 02:07 02:07 06:13 WBC 12.7 H RBC 2.51 L Hgb 8.6 L Hct 26.8 L MCV 106.8 H MCH 34.3 H MCHC 32.1 RDW 13.9 Plt Count 178 MPV 9.8 Neut % (Auto) 69.7 Lymph % (Auto) 17.9 [place] % (Auto) 8.3 Eos % (Auto) 3.6 Baso % (Auto) 0.3 Neut # (Auto) 8.8 H Lymph # (Auto) 2.3 [place] # (Auto) 1.1 H Eos # (Auto) 0.5 Baso # (Auto) 0.0 Nucleated RBC % (auto) 0 Nucleated RBCs # 0.0 ESR Sodium 136 Potassium 4.7 Chloride 102 Carbon Dioxide 25 Anion Gap 13.7 BUN 14 Creatinine 1.2 H GFR Calculation 44.5 L Glucose 156 H POC Glucose 164 Estimat Average Glucose Hemoglobin A1c Calculated Osmolality 281 L Lactate Calcium 8.2 L Total Bilirubin 0.3 AST 24 ALT 29 Alkaline Phosphatase 63 C-Reactive Protein Total Protein 5.0 L D Albumin 2.9 L Globulin 2.1 10/11/19 10:43 WBC RBC Hgb Hct MCV MCH MCHC RDW Plt Count MPV Neut % (Auto) Lymph % (Auto) [place] % (Auto) Eos % (Auto) Baso % (Auto) Neut # (Auto) Lymph # (Auto) [place] # (Auto) Eos # (Auto) Baso # (Auto) Nucleated RBC % (auto) Nucleated RBCs # ESR Sodium Potassium Chloride Carbon Dioxide Anion Gap BUN Creatinine GFR Calculation Glucose POC Glucose 159 Estimat Average Glucose Hemoglobin A1c Calculated Osmolality Lactate Calcium Total Bilirubin AST ALT Alkaline Phosphatase C-Reactive Protein Total Protein Albumin Globulin Micro: Microbiology 10/10/19 16:45 Gram Stain - Final Vaginal 10/10/19 16:45 Blood Culture - Preliminary Blood SPECIMEN COLLECTED 10/10/19 16:46 Blood Culture - Preliminary Blood SPECIMEN COLLECTED Cardiac Studies: No Data to Display
[2019-10-11] MEDS: scopolamine 1.5 Patch 1 PATCH TRANSDERMA (14:25)
[2019-10-11 16:22] LABS: Glucose Point of Care 112 mg/dL (70-110)
[2019-10-11] MEDS: lidocaine 2% INJ 20 mL INJECTION (17:14)
--- NOTE | 2019-10-11 17:22 | PM.OP ---
Operative Report Date of procedure: October 11, 2019 Pre-op Diagnosis: Left perianal abscess Post-op diagnosis: same Post-op Findings: No evidence of perianal fistula or anal canal involvement Procedure Done: 1-Examination under anesthesia 2-Incision and drainage of left perianal abscess 3-Sharp debridement of the abscess cavity to the fatty layer. Implants: 2 large pieces of Surgicel Specimens removed/disposition: Swabs for cultures and sensitivity Tissues for cultures and sensitivities Surgeon: Polo Crowell Craps Dealer: Surgical techminh Becker and Jie Circulating nurses Swetha and Mariluz Anesthesia: General (publicity expert Radha) Estimated blood loss (mL): 15 Complications: No immediate complication Condition: stable Disposition: floor Brief History: Ms Milagro Olivarez is a pleasant 68 year old female, started to develop perianal discomfort last week associated with fever and lethargy and the patient undergone incision and drainage of perianal abscess yesterday at another facility and packing was done and was placed on clindamycin.Patient continued to have drainage per her description and discomfort and she reports foul-smelling with purulent discharge and a temperature of 102 recorded at home, patient came to the emergency department where she was further evaluated and a CT scan of the pelvis was obtained that showed left perianal phlegmon without peripherally enhancing fluid collection or distinct abscess. Patient was admitted to the hospitalist service for better management of diabetes and general surgery was consulted for further evaluation and potential intervention. After thorough history physical examination and reviewing the chart and images with my personal interpretation I did nurses' association counselor the patient for examination under anesthesia and incision and drainage of left perianal abscess. Patient agreed to proceed and informed consent per chart Procedure: Patient was identified in the holding area and was taken back to the operating room, which was first placed in supine position got intubated by anesthesia, prophylactic IV antibiotics were given per protocol,Time-out was done verifying the patient's name/date of /planned procedure and destination after the procedure, all were in agreement. Patient was placed in lithotomy position were all pressure points were padded, prep and drape was done under the usual sterile technique digital rectal examination was done shows no masses or blood,found to have induration at the left lateral perianal abscess with central necrosis. Anoscope was introduced and there was no evidence of fistula or anal canal involvement or masses 15 blade knife was used to create a stab incision and a gush of pus was revealed about 7 ml following that a cruciate incision was completed and the residual tissues were dissected and taken out leaving behind a circular opening, all loculations were broken down by the examining finger and all necrotic tissues were sharply debrided leaving behind an abscess cavity of 3 x 3 [address] to the left ischiorectal fossa fat. There was no communication between the abscess cavity in the anal canal or violation of the external or internal sphincter at the end of the procedure. Thorough irrigation was done followed by appropriate hemostasis and 2 pieces of large Surgicel were applied followed by packing with mini Kerlix impregnated and lidocaine 2% then ABDs and surgical pants were applied. Count was completed at the end of the procedure, patient was then extubated and was taken to the recovery room in stable condition I was present for the whole entire procedure
[2019-10-11] MEDS: fentaNYL 50 mcg/mL INJ 2mL IVP ×2 (17:30→17:35)
[2019-10-11] MEDS: ondansetron 2 mg/ML SDV 2 mL 4 MG IVP (17:30)
--- NOTE | 2019-10-11 18:56 | PM.PN ---
Subjective Subjective: Interval history: Chart reviewed, Tmax of 102.5 F, currently afebrile, hemodynamically stable, decreasing leukocytosis, improved renal function. OR today for incision and drainage of siobhan-anal abscess by Dr. Crowell. Patient seen upon her return to the floor. Seems uncomfortable and complains of pain at site of procedure. So far has received antibiotic coverage with Zosyn, clindamycin and Zyvox. Medications: Reviewed: Yes Medication Review Details: Active Medications Generic Name Dose Route Start Last Admin Trade Name Freq PRN Reason Stop Dose Admin Acetaminophen 650 mg 10/10/19 20:45 10/11/19 06:21 Tylenol PO 650 mg Q6H PRN Administration Mild/Mod Pain Or Temp >/= 101 Hydrocodone Bitart /Acetaminophen 1 tab 10/10/19 20:45 10/11/19 11:00 [place] 7.5-325 Mg PO 1 tab PRN ABBI Administration Citalopram Hydrobr omide 20 mg 10/11/19 09:00 10/11/19 08:01 Celexa PO 20 mg DAILY ABBI Administration Dextrose 25 ml 10/10/19 20:45 D50w IVP ONCE PRN hypoglycemia prot ocol Protocol Dextrose 50 ml 10/10/19 20:45 D50w IVP PRN PRN hypoglycemia prot ocol Protocol Gabapentin 600 mg 10/11/19 09:00 10/11/19 08:01 Neurontin PO 600 mg BID ABBI Administration Glucagon 1 mg 10/10/19 20:45 Glucagen IM ONCE PRN Adult Acute Hypog lycemia Prot. Protocol Heparin Sodium (Be ef Lung) 5,000 unit 10/10/19 20:45 10/11/19 12:01 Heparin SUBCUT 5,000 unit Q8H ABBI Administration Piperacillin Sod/T azobactam 50 mls @ 12.5 mls /hr 10/11/19 02:30 10/11/19 14:57 Sod 3.375 gm/ So dium Chloride IV Infused Q8H ABBI Infusion Protocol Clindamycin HCl/De xtrose 600 mg in 50 mls @ 100 mls/hr 10/11/19 01:00 10/11/19 08:31 Cleocin IV Infused Q8H ABBI Infusion Protocol Dextrose 500 mls @ 100 mls /hr 10/10/19 20:45 D5w IV ONCE PRN Adult Acute Hypog lycemia Prot Protocol Lactated Ringer's 1,000 mls @ 100 m ls/hr 10/10/19 20:45 10/11/19 17:56 Lactated Ringers IV Infused .Q10H ABBI Infusion Insulin Aspart 0 unit 10/10/19 21:00 10/11/19 11:03 Novolog SUBCUT Not Given WM&BEDTIME ABBI Protocol Ondansetron HCl 4 mg 10/10/19 20:45 Zofran PO Q8H PRN NAUSEA Sulfa (Sulfonamide Antibiotics) Allergy (Verified 10/11/19 15:03) ALGY-Swell Lip/Tongue/Throat Vitals/I&O/Wt Last Vital Signs Temp 99.6 F 10/11/19 18:25 Pulse 88 10/11/19 18:25 Resp 12 10/11/19 18:25 BP 159/71 10/11/19 18:25 Pulse Ox 96 10/11/19 18:25 10/11/19 10/11/19 10/11/19 06:59 14:59 22:59 Intake Total 100 / 2222 1500 / 1500 1000 / 2500 Output Total Balance 100 / 2222 1500 / 1500 980 / 2480 Weight last 48 hrs Weight 86.636 kg Physical Exam Const: COMMON NORMALS: no acute distress, patient oriented x3 and alert GENERAL APPEARANCE: cooperative and anxious NUTRITIONAL APPEARANCE: obese morbidly obese ORIENTATION/CONSCIOUSNESS: Yes awake HENMT: COMMON NORMALS: normocephalic, atraumatic and hearing grossly normal bilaterally HEAD & SCALP: normocephalic and atraumatic MOUTH: moist mucous membranes abnormal Details: parched Eye: COMMON NORMALS: Equal, round and reactive pupils present, EOMs intact bilaterally and conjunctivae normal CONJUNCTIVA: Yes conjunctivae normal PUPIL: Yes Equal, round and reactive pupils present Neck/C-Spine: COMMON NORMALS: full ROM GENERAL: Yes normal visual inspection and Yes trachea midline Chest: CHEST: Yes Symmetrical chest wall rise Resp: COMMON NORMALS: normal respiratory effort, No retractions, No use of accessory muscles and clear to auscultation bilaterally EFFORT & INSPECTION: Yes able to speak in complete sentences, Yes symmetric chest movement and No tachypneic AUSCULTATION: clear to auscultation bilaterally OTHER: -on RA Cardio: COMMON NORMALS: regular rate, regular rhythm, S1 normal heart sound present, S2 normal heart sound present and No murmurs present (Cardio) RATE: regular rate RHYTHM: regular rhythm HEART SOUNDS: S1 normal heart sound present and S2 normal heart sound present GI: COMMON NORMALS: Normal to inspection, nondistended, normoactive bowel sounds present, Soft to palpation and non-tender INSPECTION: Yes central obesity PALPATION: Yes Soft to palpation Extremity: COMMON NORMALS: normal to inspection, full ROM, no clubbing, cyanosis or edema and no pedal edema Neuro: COMMON NORMALS: patient oriented x3, moves all extremities, no focal motor deficits and no sensory deficits noted SENSORIUM/ORIENTATION: Yes alert Psych: COMMON NORMALS: mental status grossly normal, Normal thought process present, cooperative, normal affect and speech normal SPEECH: Yes normal speech THOUGHT PROCESS: Normal thought process present Skin: COMMON NORMALS: no jaundice, no petechiae and no mottling NARRATIVE SKIN EXAM: -noted packing in place over perianal area (L) Data : 10/11/19 02:07 10/11/19 02:07 Micro: Microbiology 10/11/19 17:00 Gram Stain - Final Other Source 10/10/19 16:46 Blood Culture - Preliminary Blood NEGATIVE TO DATE 10/10/19 16:45 Blood Culture - Preliminary Blood NEGATIVE TO DATE 10/10/19 16:45 Gram Stain - Final Vaginal A&P Assessment and plan (1) Abscess, perianal: -L perianal abscess, now s/p incision and drainage by Dr. Sawant -pain control as needed -imaging noted -f/u wound cx -blood cx: prelim negative -decreasing leukocytosis; noted elevated ESR, CRP -Tmax-102.5 F, currently afebrile; continue to monitor vital signs -received Clindamycin, Linezolid, Zosyn; would continue Zosyn and Clindamycin and d/c Linezolid as Clindamycin would provide adequate MRSA coverage -wound care and dressing changes per Dr. Sawant -IVF hydration Status: Acute (2) Diabetes: -NIDDM type II -A1c-6.9 -accucheks, ISS, hypoglycemia precautions -consistent carb diet Status: Chronic Qualifiers: Diabetes mellitus type: type 2 Diabetes mellitus jail insulin use: without jail use Diabetes mellitus complication status: with kidney complications Diabetes mellitus complication detail: with chronic kidney disease Chronic kidney disease stage: stage 2 (mild) Qualified Code(s): E11.22 - Type 2 diabetes mellitus with diabetic chronic kidney disease; N18.2 - Chronic kidney disease, stage 2 (mild) (3) Fibromyalgia: Status: Chronic (4) HTN (hypertension): -VSS; continue to monitor -hold ACEi due to renal impairment Status: Chronic Qualifiers: Hypertension type: essential hypertension Qualified Code(s): I10 - Essential (primary) hypertension (5) Morbid obesity: -BMI-32 kg/m2 Status: Chronic (6) CKD (chronic kidney disease) stage 2, GFR 60-89 ml/min: -OTILIA on CKD stage 2 -baseline Cr wnl -improving renal function, continue to monitor -avoid nephrotoxins, renally dose meds Status: Chronic (7) Anemia: -acute macrocytic anemia; suspect that part of this is dilutional -baseline Hg previously wnl -continue to monitor Status: Acute Qualifiers: Anemia type: unspecified type Qualified Code(s): D64.9 - Anemia, unspecified Additional A&P Information -DVT ppx with heparin -Dispo: home, will need HH for continued wound care -Code status: FULL code Attestations Medical Necessity Statement*: Patient requires hospitalization for continued IV antibiotic treatment for perianal abscess status post incision and drainage, pending culture results. Time Spent in Patient Care: Greater than 35 minutes (>than 50% of time spent in counselling and/or direct pt care on unit). Coding Level of Care Code Acute Loss Prevention/Safety District Manager for g Fwd Diagnoses Abscess, perianal K61.0 Diabetes E11.22; N18.2 Diabetes mellitus type: type 2 Diabetes mellitus intermodal customer service insulin use: without jail use Diabetes mellitus complication status: with kidney complications Diabetes mellitus complication detail: with chronic kidney disease Chronic kidney disease stage: stage 2 (mild) Fibromyalgia M79.7 HTN (hypertension) I10 Hypertension type: essential hypertension Morbid obesity E66.01 CKD (chronic kidney disease) stage 2, GFR 60-89 ml/min N18.2 Anemia D64.9 Anemia type: unspecified type
[2019-10-11 20:21] LABS: Glucose Point of Care 150 mg/dL (70-110)
[2019-10-11] MEDS: morphine 4 mg/mL SDV 1 mL 2 MG IVP (20:57)
[2019-10-12] VITALS (9 sets, daily range): BP systolic 114–138; BP diastolic 59–73; PULSE 79–95; RESP 16–19; TEMP 36.3–37.7; O2SAT 85–97
[2019-10-12] MEDS: HYDROcodone-acetaminophen 7.5-325 mg Tablet 1 TAB PO ×3 (01:18→12:08)
[2019-10-12] MEDS: clindamycin 600 MG/50 ML PREMIX 100 MG IV ×3 (01:28→17:49)
[2019-10-12 03:17] LABS: Basophils # 0.1 10^3/uL (0.0-0.1); Basophils % 0.5 %; Eosinophils # 0.2 10^3/uL (0.0-0.8); Hemoglobin 8.9 g/dL (11.5-15.3); Lymphocytes # 1.3 10^3/uL (0.8-4.8); Lymphocytes % 12.9 %; Mean Corpuscular HGB Conc 31.8 g/dL (30.0-36.0); Mean Corpuscular Hemoglobin 34.2 pg (28.0-34.0); Mean Corpuscular Volume 107.7 fL (81-99); Mean Platelet Volume 9.9 fL (7.4-10.4); Monocytes # 0.8 10^3/uL (0.2-0.9); Monocytes % 8.4 %; Neutrophils # 7.6 10^3/uL (1.8-7.7); Neutrophils % 75.8 %; Nucleated Red Blood Cells % 0 %; Platelet Count 230 10^3/cmm (130-400); Red Cell Distribution Width 13.9 % (12.1-15.1)
[2019-10-12 03:49] LABS: Alanine Aminotransferase 30 U/L (0-33); Albumin Level 3.1 g/dL (3.5-5.2); Alkaline Phosphatase 74 IU/L (35-105); Anion Gap 12.7 (5-19); Aspartate Amino Transferase 23 U/L (0-32); Blood Urea Nitrogen 9 mg/dL (8-23); Calcium 8.5 mg/dL (8.5-10.5); Carbon Dioxide 25 mmol/L (22-29); Chloride 103 mmol/L (98-107); Globulin 2.2 g/dL (1.3-4.6); Glomerular Filtration Rate 49.2 mL/min (90-130); Glucose 191 mg/dL (65-115); Osmolality Calculated 283 mOsm/kg (285-295); Potassium 4.7 mmol/L (3.5-5.1); Sodium 136 mmol/L (136-145); Total Bilirubin 0.2 mg/dL (0.15-1.2); Total Protein 5.3 g/dL (6.6-8.7)
[2019-10-12] MEDS: lactated ringers 1,000 ML 100 ML IV (04:54)
[2019-10-12] MEDS: heparin 5,000 unit/mL INJ 1 mL 5000 UNIT SUBCUT ×3 (04:57→21:55)
[2019-10-12] MEDS: piperacillin-tazobactam 3.375 GM in sodium chloride 0.9% (plus) 50 ML IV ×3 (05:02→21:55)
[2019-10-12 06:19] LABS: Glucose Point of Care 165 mg/dL (70-110)
--- NOTE | 2019-10-12 07:38 | ANE.PACU2 ---
Inpatient post-anesthesia follow up: Airway intact: Yes Vital signs: Temperature 99.9 F Pulse Rate [Monito r] 98 Pulse Rate 88 Respiratory Rate 18 Blood Pressure [Le ft Arm] 134/70 Blood Pressure 122/70 Pulse Oximetry 93 Oxygen Delivery Me thod [ Nasal Cannula Current Rate & Del mumtaz] Oxygen Delivery Me thod Nasal Cannula Oxygen Flow Rate [ Current Rate 2 & Delivery] Oxygen Flow Rate 2 Fraction of Inspir ed Oxygen Hydration adequate: Yes Nausea and vomiting: No Pain level: 7 Mental status: Baseline
[2019-10-12] MEDS: citalopram 20 mg Tablet PO (08:12)
[2019-10-12] MEDS: gabapentin 300 mg Capsule 600 MG PO ×2 (08:13→17:47)
[2019-10-12] MEDS: morphine 4 mg/mL SDV 1 mL 2 MG IVP ×3 (08:19→21:52)
[2019-10-12 10:55] LABS: Glucose Point of Care 185 mg/dL (70-110)
--- NOTE | 2019-10-12 14:21 | P.PN_ITS ---
Subjective Subjective: Interval history: Patient overall feels better yet sore No acute events overnight Trending down and leukocytosis Vitals/I&O/Wt Last Vital Signs Temp 99.1 F 10/12/19 10:56 Pulse 84 10/12/19 11:12 Resp 18 10/12/19 10:56 BP 135/73 10/12/19 10:56 Pulse Ox 85 L 10/12/19 11:12 10/11/19 10/12/19 10/12/19 22:59 06:59 14:59 Intake Total 1000 / 2500 580 / 3080 340 / 340 Output Total 1075 / 1095 Balance 980 / 2480 -495 / 1985 340 / 340 Weight last 48 hrs Weight 191 lb Physical Exam Narrative: EXAM NARRATIVE: Patient is conscious alert oriented X3 BMI Head and neck examination PERRLA no masses no cervical lymphadenopathy no jaundice Perianal examination done in the presence of female business machines teacher Lynnette patient's nurse Minimal cellulitic changes and mild induration otherwise the abscess cavity is clean and packing was removed by me bedside and the Surgicel as well, repacking was done by me in the form of wet-to-dry 2 inches Nu Gauze followed by ABD. Data : 10/12/19 02:38 10/12/19 02:38 Micro: Microbiology 10/10/19 16:45 Gram Stain - Final Vaginal Wound Culture - Preliminary 10/11/19 17:00 Gram Stain - Final Other Source 10/10/19 16:46 Blood Culture - Preliminary Blood NEGATIVE TO DATE 10/10/19 16:45 Blood Culture - Preliminary Blood NEGATIVE TO DATE A&P Assessment and plan (1) Abscess, perianal: Twice daily wet-to-dry dressing change using 2 inches new gauze followed by ABD Sits baths 2-3 times a day in water at room temperature with Epsom salt Diabetes education and management Return to wound care center to follow-up with wound care team due to patient's wound complexity Assurance and education All questions have been answered and all concerns have been addressed to patient's satisfaction. Status: Resolved Attestations Medical Necessity Statement*: Per hospitalist service Time Spent in Patient Care: (>than 50% of time spent in counselling and/or direct pt care on unit) . Coding Level of Care Code Acute Assistant Store Manager Sales for [facility] [employer] Diagnoses Abscess, perianal K61.0
--- NOTE | 2019-10-12 14:42 | P.PN_ITS ---
Subjective Subjective: Interval history: T-max has been 102.5F, low-grade temp at approximately 7 AM this morning of 99.9F has otherwise been afebrile. Hemodynamically stable, requiring some supplemental oxygen support. Stable hemoglobin, resolved leukocytosis, improved renal function. Accu-Cheks noted, had 1075 mL urine output overnight. Blood cultures so far have been negative, wound culture sent from the OR following I&D pending, Gram stain polymicrobial. Remains on dual antibiotic coverage with Zosyn and clindamycin. Wound dressing changed this morning at bedside by Dr. Crowell. Seems somewhat somnolent this afternoon, shifts in bed uncomfortably, flat affect. Medications: Reviewed: Yes Medication Review Details: Active Medications Generic Name Dose Route Start Last Admin Trade Name Freq PRN Reason Stop Dose Admin Acetaminophen 650 mg 10/10/19 20:45 10/11/19 06:21 Tylenol PO 650 mg Q6H PRN Administration Mild/Mod Pain Or Temp >/= 101 Hydrocodone Bitart /Acetaminophen 1 tab 10/12/19 05:56 10/12/19 12:08 [place] 7.5-325 Mg PO 1 tab Q6H PRN Administration PAIN Citalopram Hydrobr omide 20 mg 10/11/19 09:00 10/12/19 08:12 Celexa PO 20 mg DAILY ABBI Administration Dextrose 25 ml 10/10/19 20:45 D50w IVP ONCE PRN hypoglycemia prot ocol Protocol Dextrose 50 ml 10/10/19 20:45 D50w IVP PRN PRN hypoglycemia prot ocol Protocol Gabapentin 600 mg 10/11/19 09:00 10/12/19 08:13 Neurontin PO 600 mg BID ABBI Administration Glucagon 1 mg 10/10/19 20:45 Glucagen IM ONCE PRN Adult Acute Hypog lycemia Prot. Protocol Heparin Sodium (Be ef Lung) 5,000 unit 10/10/19 20:45 10/12/19 12:09 Heparin SUBCUT 5,000 unit Q8H ABBI Administration Piperacillin Sod/T azobactam 50 mls @ 12.5 mls /hr 10/11/19 02:30 10/12/19 12:09 Sod 3.375 gm/ So dium Chloride IV 12.5 mls/hr Q8H ABBI Administration Protocol Clindamycin HCl/De xtrose 600 mg in 50 mls @ 100 mls/hr 10/11/19 01:00 10/12/19 09:44 Cleocin IV Infused Q8H ABBI Infusion Protocol Dextrose 500 mls @ 100 mls /hr 10/10/19 20:45 D5w IV ONCE PRN Adult Acute Hypog lycemia Prot Protocol Insulin Aspart 0 unit 10/10/19 21:00 10/12/19 12:08 Novolog SUBCUT 4 unit WM&BEDTIME ABBI Administration Protocol Morphine Sulfate 2 mg 10/11/19 18:58 10/12/19 08:19 Morphine IVP 2 mg Q4H PRN Administration SEVERE PAIN Ondansetron HCl 4 mg 10/10/19 20:45 Zofran PO Q8H PRN NAUSEA Sulfa (Sulfonamide Antibiotics) Allergy (Verified 10/11/19 15:03) ALGY-Swell Lip/Tongue/Throat Vitals/I&O/Wt Last Vital Signs Temp 99.1 F 10/12/19 10:56 Pulse 84 10/12/19 11:12 Resp 18 10/12/19 10:56 BP 135/73 10/12/19 10:56 Pulse Ox 85 L 10/12/19 11:12 10/11/19 10/12/19 10/12/19 22:59 06:59 14:59 Intake Total 1000 / 2500 580 / 3080 340 / 340 Output Total 1075 / 1095 Balance 980 / 2480 -495 / 1985 340 / 340 Physical Exam Const: COMMON NORMALS: no acute distress, patient oriented x3 and alert GENERAL APPEARANCE: cooperative and anxious NUTRITIONAL APPEARANCE: obese morbidly obese ORIENTATION/CONSCIOUSNESS: Yes awake HENMT: COMMON NORMALS: normocephalic, atraumatic and hearing grossly normal bilaterally HEAD & SCALP: normocephalic and atraumatic MOUTH: moist mucous membranes abnormal Details: parched Eye: COMMON NORMALS: Equal, round and reactive pupils present, EOMs intact bilaterally and conjunctivae normal CONJUNCTIVA: Yes conjunctivae normal PUPIL: Yes Equal, round and reactive pupils present Neck/C-Spine: COMMON NORMALS: full ROM GENERAL: Yes normal visual inspection and Yes trachea midline Chest: CHEST: Yes Symmetrical chest wall rise Resp: COMMON NORMALS: normal respiratory effort, No retractions, No use of accessory muscles and clear to auscultation bilaterally EFFORT & INSPECTION: Yes able to speak in complete sentences, Yes symmetric chest movement and No tachypneic AUSCULTATION: clear to auscultation bilaterally OTHER: -on RA Cardio: COMMON NORMALS: regular rate, regular rhythm, S1 normal heart sound present, S2 normal heart sound present and No murmurs present (Cardio) RATE: regular rate RHYTHM: regular rhythm HEART SOUNDS: S1 normal heart sound present and S2 normal heart sound present GI: COMMON NORMALS: Normal to inspection, nondistended, normoactive bowel sounds present, Soft to palpation and non-tender INSPECTION: Yes central obesity PALPATION: Yes Soft to palpation Extremity: COMMON NORMALS: normal to inspection, full ROM, no clubbing, cyanosis or edema and no pedal edema Neuro: COMMON NORMALS: patient oriented x3, moves all extremities, no focal motor deficits and no sensory deficits noted SENSORIUM/ORIENTATION: Yes alert Psych: COMMON NORMALS: mental status grossly normal, Normal thought process present, cooperative, normal affect and speech normal SPEECH: Yes normal speech THOUGHT PROCESS: Normal thought process present Skin: COMMON NORMALS: no jaundice, no petechiae and no mottling NARRATIVE SKIN EXAM: -noted packing in place over perianal area (L) Data : 10/12/19 02:38 10/12/19 02:38 Micro: Microbiology 10/10/19 16:45 Gram Stain - Final Vaginal Wound Culture - Preliminary 10/11/19 17:00 Gram Stain - Final Other Source 10/10/19 16:46 Blood Culture - Preliminary Blood NEGATIVE TO DATE 10/10/19 16:45 Blood Culture - Preliminary Blood NEGATIVE TO DATE A&P Assessment and plan (1) Abscess, perianal: -L perianal abscess, now s/p incision and drainage by Dr. Sawant -pain control as needed -imaging noted -wound cx: pending; gram stain polymicrobial -blood cx: prelim negative -decreasing leukocytosis; noted elevated ESR, CRP -Tmax-102.5 F, currently afebrile; continue to monitor vital signs -on Zosyn and Clindamycin and d/c Linezolid as Clindamycin would provide adequate MRSA coverage -wound care and dressing changes per Dr. Sawant: to be changed BID, packing with 2-inch Nu Gauze wet to dry and ABD; sitz baths 2-3 x/day -off IVF hydration Status: Resolved (2) Diabetes: -NIDDM type II -A1c-6.9 -accucheks, ISS, hypoglycemia precautions -consistent carb diet Status: Chronic Qualifiers: Chronic kidney disease stage: stage 2 (mild) Diabetes mellitus complication detail: with chronic kidney disease Diabetes mellitus complication status: with kidney complications Diabetes mellitus packager and strapper insulin use: without senior living use Diabetes mellitus type: type 2 Qualified Code(s): E11.22 - Type 2 diabetes mellitus with diabetic chronic kidney disease; N18.2 - Chronic kidney disease, stage 2 (mild) (3) Fibromyalgia: Status: Chronic (4) HTN (hypertension): -VSS; continue to monitor -hold ACEi due to renal impairment Status: Chronic Qualifiers: Hypertension type: essential hypertension Qualified Code(s): I10 - Essential (primary) hypertension (5) Morbid obesity: -BMI-32 kg/m2 Status: Chronic (6) CKD (chronic kidney disease) stage 2, GFR 60-89 ml/min: -OTILIA on CKD stage 2 -baseline Cr wnl -improving renal function, continue to monitor -avoid nephrotoxins, renally dose meds Status: Chronic (7) Anemia: -acute macrocytic anemia; suspect that part of this is dilutional -baseline Hg previously wnl -continue to monitor Status: Acute Qualifiers: Anemia type: unspecified type Qualified Code(s): D64.9 - Anemia, unspecified Additional A&P Information -DVT ppx with heparin -Dispo: home, will need HH for continued wound care -Code status: FULL code Attestations Medical Necessity Statement*: Patient requires hospitalization for continued IV antibiotics pending wound culture results. Time Spent in Patient Care: 16 - 35 minutes (>than 50% of time spent in counselling and/or direct pt care on unit) . Coding Level of Care Code Acute Branch Account Executive for g Fwd Exam Comprehensive Diagnoses Abscess, perianal K61.0 Diabetes E11.22; N18.2 Chronic kidney disease stage: stage 2 (mild) Diabetes mellitus complication detail: with chronic kidney disease Diabetes mellitus complication status: with kidney complications Diabetes mellitus senior living insulin use: without senior living use Diabetes mellitus type: type 2 Fibromyalgia M79.7 HTN (hypertension) I10 Hypertension type: essential hypertension Morbid obesity E66.01 CKD (chronic kidney disease) stage 2, GFR 60-89 ml/min N18.2 Anemia D64.9 Anemia type: unspecified type
[2019-10-12 17:07] LABS: Glucose Point of Care 148 mg/dL (70-110)
[2019-10-12] MEDS: diphenhydrAMINE 25 mg Capsule PO (18:25)
[2019-10-12 21:52] LABS: Glucose Point of Care 173 mg/dL (70-110)
[2019-10-13] VITALS: BP 156/71; PULSE 90; RESP 18; TEMP 37.2; O2SAT 91
[2019-10-13] MEDS: clindamycin 600 MG/50 ML PREMIX 100 MG IV ×3 (01:14→17:07)
[2019-10-13] MEDS: acetaminophen 325 mg Tablet 650 MG PO ×2 (01:33→18:37)
[2019-10-13 02:34] LABS: Basophils % 0.4 %; Eosinophils # 0.5 10^3/uL (0.0-0.8); Eosinophils % 5.5 %; Hematocrit 27.7 % (37.0-47.0); Hemoglobin 8.9 g/dL (11.5-15.3); Lymphocytes # 2.2 10^3/uL (0.8-4.8); Lymphocytes % 24.5 %; Mean Corpuscular HGB Conc 32.1 g/dL (30.0-36.0); Mean Corpuscular Hemoglobin 35.6 pg (28.0-34.0); Mean Corpuscular Volume 110.8 fL (81-99); Mean Platelet Volume 9.4 fL (7.4-10.4); Monocytes # 0.9 10^3/uL (0.2-0.9); Monocytes % 9.7 %; Neutrophils # 5.4 10^3/uL (1.8-7.7); Neutrophils % 59.6 %; Nucleated Red Blood Cells % 0 %; Platelet Count 232 10^3/cmm (130-400); Red Cell Distribution Width 13.8 % (12.1-15.1)
[2019-10-13 02:56] LABS: Alanine Aminotransferase 29 U/L (0-33); Albumin Level 3.1 g/dL (3.5-5.2); Alkaline Phosphatase 73 IU/L (35-105); Anion Gap 13.6 (5-19); Aspartate Amino Transferase 27 U/L (0-32); Blood Urea Nitrogen 6 mg/dL (8-23); Calcium 8.7 mg/dL (8.5-10.5); Carbon Dioxide 26 mmol/L (22-29); Chloride 100 mmol/L (98-107); Globulin 2.3 g/dL (1.3-4.6); Glomerular Filtration Rate 49.2 mL/min (90-130); Glucose 147 mg/dL (65-115); Osmolality Calculated 278 mOsm/kg (285-295); Potassium 4.6 mmol/L (3.5-5.1); Sodium 135 mmol/L (136-145); Total Bilirubin 0.3 mg/dL (0.15-1.2); Total Protein 5.4 g/dL (6.6-8.7)
[2019-10-13 04:00] VITALS: BP 165/68; PULSE 98; RESP 18; TEMP 37.4; O2SAT 92
[2019-10-13] MEDS: piperacillin-tazobactam 3.375 GM in sodium chloride 0.9% (plus) 50 ML IV ×3 (05:58→22:04)
[2019-10-13] MEDS: heparin 5,000 unit/mL INJ 1 mL 5000 UNIT SUBCUT ×3 (05:59→22:03)
[2019-10-13 06:41] LABS: Glucose Point of Care 142 mg/dL (70-110)
[2019-10-13 07:36] VITALS: BP 145/76; PULSE 90; RESP 16; TEMP 36.8; O2SAT 96
[2019-10-13] MEDS: HYDROcodone-acetaminophen 7.5-325 mg Tablet 1 TAB PO ×3 (07:43→22:10)
[2019-10-13] MEDS: gabapentin 300 mg Capsule 600 MG PO ×2 (07:43→17:07)
[2019-10-13] MEDS: citalopram 20 mg Tablet PO (07:43)
--- NOTE | 2019-10-13 11:39 | PC.SOCIAL ---
IMM Update Pg 2 of IMM given and explained to patient. Copy provided to patient and original placed in chart.
[2019-10-13 11:45] VITALS: BP 135/67; PULSE 85; RESP 17; TEMP 37; O2SAT 96
[2019-10-13 11:47] LABS: Glucose Point of Care 269 mg/dL (70-110)
--- NOTE | 2019-10-13 14:25 | PM.PN ---
Subjective Subjective: Interval history: Resolved leukocytosis, afebrile, hemodynamically stable, wound cx so far growing GNRs, anaerobic culture negative, blood cultures negative. Less pain today, hemoglobin stable. POD # 2 s/p incision and drainage of L perianal abscess. Case discussed earlier with caitlin Ann for d/c from his standpoint. Better appetite and oral intake, has been up more today as well. Medications: Reviewed: Yes Medication Review Details: Active Medications Generic Name Dose Route Start Last Admin Trade Name Freq PRN Reason Stop Dose Admin Acetaminophen 650 mg 10/10/19 20:45 10/13/19 01:33 Tylenol PO 650 mg Q6H PRN Administration Mild/Mod Pain Or Temp >/= 101 Hydrocodone Bitart /Acetaminophen 1 tab 10/12/19 05:56 10/13/19 07:43 [place] 7.5-325 Mg PO 1 tab Q6H PRN Administration PAIN Citalopram Hydrobr omide 20 mg 10/11/19 09:00 10/13/19 07:43 Celexa PO 20 mg DAILY ABBI Administration Dextrose 25 ml 10/10/19 20:45 D50w IVP ONCE PRN hypoglycemia prot ocol Protocol Dextrose 50 ml 10/10/19 20:45 D50w IVP PRN PRN hypoglycemia prot ocol Protocol Diphenhydramine HC l 25 mg 10/12/19 17:54 10/12/19 18:25 Benadryl PO 25 mg Q4H PRN Administration ITCHING Gabapentin 600 mg 10/11/19 09:00 10/13/19 07:43 Neurontin PO 600 mg BID ABBI Administration Glucagon 1 mg 10/10/19 20:45 Glucagen IM ONCE PRN Adult Acute Hypog lycemia Prot. Protocol Heparin Sodium (Be ef Lung) 5,000 unit 10/10/19 20:45 10/13/19 11:59 Heparin SUBCUT 5,000 unit Q8H ABBI Administration Piperacillin Sod/T azobactam 50 mls @ 12.5 mls /hr 10/11/19 02:30 10/13/19 11:59 Sod 3.375 gm/ So dium Chloride IV 12.5 mls/hr Q8H ABBI Administration Protocol Clindamycin HCl/De xtrose 600 mg in 50 mls @ 100 mls/hr 10/11/19 01:00 10/13/19 07:44 Cleocin IV 100 mls/hr Q8H ABBI Administration Protocol Dextrose 500 mls @ 100 mls /hr 10/10/19 20:45 D5w IV ONCE PRN Adult Acute Hypog lycemia Prot Protocol Insulin Aspart 0 unit 10/10/19 21:00 10/13/19 11:59 Novolog SUBCUT 8 unit WM&BEDTIME ABBI Administration Protocol Magnesium Sulfate 1 applic 10/13/19 05:43 10/13/19 06:22 Epsom Salt TOPICAL 1 applic DAILY PRN Administration CRAMPING Morphine Sulfate 2 mg 10/11/19 18:58 10/12/19 21:52 Morphine IVP 2 mg Q4H PRN Administration SEVERE PAIN Ondansetron HCl 4 mg 10/10/19 20:45 Zofran PO Q8H PRN NAUSEA Sulfa (Sulfonamide Antibiotics) Allergy (Verified 10/11/19 15:03) ALGY-Swell Lip/Tongue/Throat Vitals/I&O/Wt Last Vital Signs Temp 98.6 F 10/13/19 11:45 Pulse 85 10/13/19 11:45 Resp 17 10/13/19 11:45 BP 135/67 10/13/19 11:45 Pulse Ox 96 10/13/19 11:45 10/12/19 10/13/19 10/13/19 22:59 06:59 14:59 Intake Total 100 / 440 100 / 540 410 / 410 Output Total 150 / 150 170 / 320 Balance -50 / 290 -70 / 220 410 / 410 Physical Exam Const: COMMON NORMALS: no acute distress, patient oriented x3 and alert GENERAL APPEARANCE: cooperative and anxious NUTRITIONAL APPEARANCE: obese morbidly obese ORIENTATION/CONSCIOUSNESS: Yes awake HENMT: COMMON NORMALS: normocephalic, atraumatic and hearing grossly normal bilaterally HEAD & SCALP: normocephalic and atraumatic MOUTH: moist mucous membranes abnormal Details: parched Eye: COMMON NORMALS: Equal, round and reactive pupils present, EOMs intact bilaterally and conjunctivae normal CONJUNCTIVA: Yes conjunctivae normal PUPIL: Yes Equal, round and reactive pupils present Neck/C-Spine: COMMON NORMALS: full ROM GENERAL: Yes normal visual inspection and Yes trachea midline Chest: CHEST: Yes Symmetrical chest wall rise Resp: COMMON NORMALS: normal respiratory effort, No retractions, No use of accessory muscles and clear to auscultation bilaterally EFFORT & INSPECTION: Yes able to speak in complete sentences, Yes symmetric chest movement and No tachypneic AUSCULTATION: clear to auscultation bilaterally OTHER: -on RA Cardio: COMMON NORMALS: regular rate, regular rhythm, S1 normal heart sound present, S2 normal heart sound present and No murmurs present (Cardio) RATE: regular rate RHYTHM: regular rhythm HEART SOUNDS: S1 normal heart sound present and S2 normal heart sound present GI: COMMON NORMALS: Normal to inspection, nondistended, normoactive bowel sounds present, Soft to palpation and non-tender INSPECTION: Yes central obesity PALPATION: Yes Soft to palpation Extremity: COMMON NORMALS: normal to inspection, full ROM, no clubbing, cyanosis or edema and no pedal edema Neuro: COMMON NORMALS: patient oriented x3, moves all extremities, no focal motor deficits and no sensory deficits noted SENSORIUM/ORIENTATION: Yes alert Psych: COMMON NORMALS: mental status grossly normal, Normal thought process present, cooperative, normal affect and speech normal SPEECH: Yes normal speech THOUGHT PROCESS: Normal thought process present Skin: COMMON NORMALS: no jaundice, no petechiae and no mottling NARRATIVE SKIN EXAM: -noted packing in place over perianal area (L) Data : 10/13/19 02:06 10/13/19 02:06 Micro: Microbiology 10/11/19 17:00 Anaerobic Culture - Preliminary Other Source Wound Culture - Preliminary 10/10/19 16:45 Gram Stain - Final Vaginal Wound Culture - Preliminary Gram Negative Rods Enterococcus species 10/11/19 17:00 Gram Stain - Final Other Source Tissue Culture - Preliminary Gram Negative Rods A&P Assessment and plan (1) Abscess, perianal: -L perianal abscess, now s/p incision and drainage by Dr. Sawant: POD # 2 -pain control as needed -imaging noted -wound cx: prelim GNRs; gram stain polymicrobial -blood cx: prelim negative -leukocytosis resolved; noted elevated ESR, CRP -Tmax-99.9 F, currently afebrile; continue to monitor vital signs -on Zosyn and Clindamycin and d/c Linezolid as Clindamycin would provide adequate MRSA coverage -wound care and dressing changes per Dr. Sawant: to be changed BID, packing with 2-inch Nu Gauze wet to dry and ABD; sitz baths 2-3 x/day -off IVF hydration Status: Resolved (2) Diabetes: -NIDDM type II -A1c-6.9 -accucheks, ISS, hypoglycemia precautions -consistent carb diet Status: Chronic Qualifiers: Chronic kidney disease stage: stage 2 (mild) Diabetes mellitus complication detail: with chronic kidney disease Diabetes mellitus complication status: with kidney complications Diabetes mellitus alf insulin use: without terminal system operator use Diabetes mellitus type: type 2 Qualified Code(s): E11.22 - Type 2 diabetes mellitus with diabetic chronic kidney disease; N18.2 - Chronic kidney disease, stage 2 (mild) (3) Fibromyalgia: -pain control as needed Status: Chronic (4) HTN (hypertension): -VSS; continue to monitor -hold ACEi due to renal impairment Status: Chronic Qualifiers: Hypertension type: essential hypertension Qualified Code(s): I10 - Essential (primary) hypertension (5) Morbid obesity: -BMI-32 kg/m2 Status: Chronic (6) CKD (chronic kidney disease) stage 2, GFR 60-89 ml/min: -OTILIA on CKD stage 2 -baseline Cr wnl -improving renal function, continue to monitor -avoid nephrotoxins, renally dose meds Status: Chronic (7) Anemia: -acute macrocytic anemia; suspect that part of this is dilutional -baseline Hg previously wnl -continue to monitor; stable Hg so far Status: Acute Qualifiers: Anemia type: unspecified type Qualified Code(s): D64.9 - Anemia, unspecified Additional A&P Information -DVT ppx with heparin -Dispo: home, will need HH for continued wound care -Code status: FULL code Attestations Medical Necessity Statement*: Patient requires hospitalization for continued IV antibiotics secondary to L perianal abscess s/p I & D, pending wound culture results. Time Spent in Patient Care: 16 - 35 minutes (>than 50% of time spent in counselling and/or direct pt care on unit). Coding Level of Care Code Acute [employer] Member for g Fwd Exam Comprehensive Diagnoses Abscess, perianal K61.0 Diabetes E11.22; N18.2 Chronic kidney disease stage: stage 2 (mild) Diabetes mellitus complication detail: with chronic kidney disease Diabetes mellitus complication status: with kidney complications Diabetes mellitus alf insulin use: without terminal system operator use Diabetes mellitus type: type 2 Fibromyalgia M79.7 HTN (hypertension) I10 Hypertension type: essential hypertension Morbid obesity E66.01 CKD (chronic kidney disease) stage 2, GFR 60-89 ml/min N18.2 Anemia D64.9 Anemia type: unspecified type
[2019-10-13 15:26] VITALS: BP 163/73; PULSE 82; RESP 16; TEMP 36.8; O2SAT 93
[2019-10-13 17:18] LABS: Glucose Point of Care 125 mg/dL (70-110)
[2019-10-13 20:00] VITALS: BP 132/74; PULSE 83; RESP 20; TEMP 36.7; O2SAT 95
[2019-10-13 21:13] LABS: Glucose Point of Care 252 mg/dL (70-110)
[2019-10-14] VITALS (7 sets, daily range): BP systolic 122–180; BP diastolic 58–78; PULSE 73–100; RESP 18; TEMP 36.7–37.3; O2SAT 92–95
[2019-10-14] MEDS: clindamycin 600 MG/50 ML PREMIX 100 MG IV ×2 (02:13→08:13)
[2019-10-14] MEDS: piperacillin-tazobactam 3.375 GM in sodium chloride 0.9% (plus) 50 ML IV (05:23)
[2019-10-14] MEDS: heparin 5,000 unit/mL INJ 1 mL 5000 UNIT SUBCUT (05:23)
[2019-10-14 07:11] LABS: Glucose Point of Care 150 mg/dL (70-110)
[2019-10-14] MEDS: gabapentin 300 mg Capsule 600 MG PO (08:14)
[2019-10-14] MEDS: citalopram 20 mg Tablet PO (08:14)
[2019-10-14] MEDS: acetaminophen 325 mg Tablet 650 MG PO (09:44)
[2019-10-14 11:05] LABS: Glucose Point of Care 289 mg/dL (70-110)
--- NOTE | 2019-10-14 11:39 | PM.DCS ---
Discharge Providers Date of Admission: 10/10/19 19:00 Date of Discharge: October 14, 2019 Attending Provider at Admission: Rico Dwyer Attending Provider at Discharge: Sara Joe MD Primary Care Provider: Rosalino Almaraz DO Diagnoses at Discharge Discharge Diagnosis (1) Abscess, perianal: Status: Resolved Problem details: -L perianal abscess, now s/p incision and drainage by Dr. Sawant: POD # 3 -pain control as needed -imaging noted -wound cx: E.coli, sensitivity noted; gram stain polymicrobial -blood cx: negative -leukocytosis resolved; noted elevated ESR, CRP -afebrile; continue to monitor vital signs -on Zosyn and Clindamycin and d/c Linezolid as Clindamycin would provide adequate MRSA coverage. Will d/c on Levaquin based on sensitivity -wound care and dressing changes per Dr. Sawant: to be changed BID, packing with 2-inch Nu Gauze wet to dry and ABD; sitz baths 2-3 x/day -off IVF hydration (2) Diabetes: Status: Chronic Problem details: -NIDDM type II -A1c-6.9 -accucheks, ISS, hypoglycemia precautions -consistent carb diet -can resume oral meds on d/c Qualifiers: Chronic kidney disease stage: stage 2 (mild) Diabetes mellitus complication detail: with chronic kidney disease Diabetes mellitus complication status: with kidney complications Diabetes mellitus custodial insulin use: without laborer marine terminal use Diabetes mellitus type: type 2 Qualified Code(s): E11.22 - Type 2 diabetes mellitus with diabetic chronic kidney disease; N18.2 - Chronic kidney disease, stage 2 (mild) (3) Fibromyalgia: Status: Chronic Problem details: -pain control as needed (4) HTN (hypertension): Status: Chronic Problem details: -VSS; continue to monitor -renal impairment resolved, can resume ACEi Qualifiers: Hypertension type: essential hypertension Qualified Code(s): I10 - Essential (primary) hypertension (5) Morbid obesity: Status: Chronic Problem details: -BMI-32 kg/m2 (6) CKD (chronic kidney disease) stage 2, GFR 60-89 ml/min: Status: Chronic Problem details: -OTILIA on CKD stage 2 -baseline Cr wnl -improving renal function, continue to monitor -avoid nephrotoxins, renally dose meds (7) Anemia: Status: Acute Problem details: -acute macrocytic anemia; suspect that part of this is dilutional -baseline Hg previously wnl -continue to monitor; stable Hg so far Qualifiers: Anemia type: unspecified type Qualified Code(s): D64.9 - Anemia, unspecified Reason for Visit Reason for Visit: abscess Hospital Course Hospital Course: Patient was admitted to the medical surgical floor and general surgery consulted due to finding of left perianal abscess. Dr. Crowell saw the patient and she had an incision and drainage, is postop day #3 today. She has been on broad-spectrum IV antibiotic coverage with clindamycin and Zosyn. Wound cultures have been obtained in the ER and have grown E. coli and enterococcus species. Culture sent from the OR following incision and drainage have grown E. coli, sensitivity noted. Blood cultures have been negative. Patient has consistently been afebrile, no leukocytosis noted. Pain has been well controlled particularly post-op. Wound care was done per instructions provided by Dr. Crowell, with dressing changes done at least twice a day and sits baths 2-3 times per day. Patient was covered with insulin during her hospitalization but can resume her oral hypoglycemic agents on discharge. Hemoglobin was noted to be stable, no need for transfusion of any blood products during her hospitalization. Renal function is stable, she did have acute kidney injury on admission that has improved with hydration; she has been hemodynamically stable, ambulatory. Home health services have been set up due to complexity of wound and need for continued wound care. She will need to follow-up with Dr. Crowell at the wound care clinic as well as her primary care provider within 1 week. She is cautioned on need to seek medical attention immediately should she develop fever/chills, increased purulent and malodorous drainage from her wound. Discharge Summary: -Patient to follow up with primary care physician within 1 week -Patient to follow up with Dr. Sawant in wound care clinic on Wednesday Physical Exam Const: COMMON NORMALS: no acute distress, patient oriented x3 and alert GENERAL APPEARANCE: cooperative and anxious NUTRITIONAL APPEARANCE: obese morbidly obese ORIENTATION/CONSCIOUSNESS: Yes awake HENMT: COMMON NORMALS: normocephalic, atraumatic and hearing grossly normal bilaterally HEAD & SCALP: normocephalic and atraumatic MOUTH: moist mucous membranes abnormal Details: parched Eye: COMMON NORMALS: Equal, round and reactive pupils present, EOMs intact bilaterally and conjunctivae normal CONJUNCTIVA: Yes conjunctivae normal PUPIL: Yes Equal, round and reactive pupils present Neck/C-Spine: COMMON NORMALS: full ROM GENERAL: Yes normal visual inspection and Yes trachea midline Chest: CHEST: Yes Symmetrical chest wall rise Resp: COMMON NORMALS: normal respiratory effort, No retractions, No use of accessory muscles and clear to auscultation bilaterally EFFORT & INSPECTION: Yes able to speak in complete sentences, Yes symmetric chest movement and No tachypneic AUSCULTATION: clear to auscultation bilaterally OTHER: -on RA Cardio: COMMON NORMALS: regular rate, regular rhythm, S1 normal heart sound present, S2 normal heart sound present and No murmurs present (Cardio) RATE: regular rate RHYTHM: regular rhythm HEART SOUNDS: S1 normal heart sound present and S2 normal heart sound present GI: COMMON NORMALS: Normal to inspection, nondistended, normoactive bowel sounds present, Soft to palpation and non-tender INSPECTION: Yes central obesity PALPATION: Yes Soft to palpation Extremity: COMMON NORMALS: normal to inspection, full ROM, no clubbing, cyanosis or edema and no pedal edema Neuro: COMMON NORMALS: patient oriented x3, moves all extremities, no focal motor deficits and no sensory deficits noted SENSORIUM/ORIENTATION: Yes alert Psych: COMMON NORMALS: mental status grossly normal, Normal thought process present, cooperative, normal affect and speech normal SPEECH: Yes normal speech THOUGHT PROCESS: Normal thought process present Skin: COMMON NORMALS: no jaundice, no petechiae and no mottling NARRATIVE SKIN EXAM: -noted packing in place over perianal area (L) Discharge Data Data Completed and Pending: Completed Studies During Hospitalization Category Date Time Status CT pelvis w con* [id number] Urgent Cat Scan 10/10/19 17:29 Completed Pending at discharge Category Date Time Status Anaerobic Culture Routine Lab 10/11/19 17:00 Results Blood Culture Sta t Lab 10/10/19 16:45 Results Tissue Culture an d Gram Stain Routi ne Lab 10/11/19 17:00 Results Wound Culture Rou gutierrez Lab 10/11/19 17:00 Results Wound Culture and Gram Stain Stat Lab 10/10/19 16:45 Results Labs from last 24 hours 10/14/19 10/14/19 10/13/19 10:52 06:57 20:31 POC Glucose 289 150 252 10/13/19 10/13/19 17:10 11:44 POC Glucose 125 269 Vitals: Last Vital Signs Temp 98.3 F 10/14/19 11:31 Pulse 73 10/14/19 11:31 Resp 18 10/14/19 11:31 BP 137/78 10/14/19 11:31 Pulse Ox 94 10/14/19 11:31 Discharge Plan Discharge Patient Disposition: Home Health Service Condition: Stable Prescriptions: New levofloxacin 750 mg Tablet 750 mg PO DAILY 10 Days Qty: 10 RF: 0 hydrocodone-acetaminophen 7.5-325 mg tablet 1 tab PO PRN Qty: 30 RF: 0 Continued lisinopril 20 mg tablet 20 mg PO DAILY RF: 0 citalopram 20 mg tablet 20 mg PO DAILY RF: 0 metformin 1,000 mg tablet 1,000 mg PO BID RF: 0 gabapentin 300 mg capsule 600 mg PO BID RF: 0 glipizide 5 mg tablet 5 mg PO BID RF: 0 Januvia 100 mg Tablet 100 mg PO DAILY RF: 0 Vitamin D3 125 mcg (5,000 unit) Tablet 125 mcg PO DAILY RF: 0 Discontinued clindamycin HCl 300 mg Capsule 300 mg PO Q8H RF: 0 Discharge Orders: Discharge Order (Routine); Ordered 10/14/19 Ordered By: Sara Joe Referrals: Polo Crowell MD [Physician] - 10/21/19 (Return to wound care center first available appointment due to patient's wound complexity. Faxed face sheet to office to request this. They should call you at home with this appointment.) Rosalino Almaraz DO [Primary Care Provider] - 4-7 days (Post hospital discharge follow up. Treated for L perianal abscess s/p I & D, wound cx grew E.coli, discharged on Levaquin. Will be following up with Dr. Sawant at wound care clinic. Faxed face sheet to office and requested appointment. They should call you at home with this appointment.) Discharge Diet: Diabetic Discharge Activity: Increase activity as tolerated Patient Instructions: Hydrocodone/Acetaminophen (By mouth), Levofloxacin (By mouth), Acute Wound Care (GEN) Activity Restrictions/Additional Instructions: -Please continue sitz baths at home with Epsom salts 2-3 times/day -Wound dressings should be changed at least twice/day unless soiled in which case it would need to be changed more often. Home health services have been requested to assist with this Discharge Attestations Time Spent in Discharge Care*: greater than 30 min Specific Discharge Activities: Specific discharge activities: educating patient, discussing with case management coordinator/social workers/dc planners, documenting/other paperwork and evaluating patient/reviewing data Status at Discharge: Cognitive status at discharge: cognitively intact, Behavioral status at discharge: cooperative, Functional status at discharge: independent ambulation Overall status at discharge: patient is progressing back to baseline Quality Metrics Clinical Quality Measures During this hospital stay, did patient experience: None Coding Level of Care Code Acute Precipitator Supervisor for Chg Fwd Diagnoses Abscess, perianal K61.0 Diabetes E11.22; N18.2 Chronic kidney disease stage: stage 2 (mild) Diabetes mellitus complication detail: with chronic kidney disease Diabetes mellitus complication status: with kidney complications Diabetes mellitus custodial insulin use: without laborer marine terminal use Diabetes mellitus type: type 2 Fibromyalgia M79.7 HTN (hypertension) I10 Hypertension type: essential hypertension Morbid obesity E66.01 CKD (chronic kidney disease) stage 2, GFR 60-89 ml/min N18.2 Anemia D64.9 Anemia type: unspecified type
--- NOTE | 2019-10-14 13:41 | PC.NURSE ---
Patient received dc instructions. Her wound surgical site to perineal area cleaned with water and epsom's salt. Packed with 2inch packing and saturated with sterile water and Clean pad and brief. two bottles of 2inch packing, sterile water, cotton applicators briefs and pads send home with patient.
== END 2019-10-14 13:20 | disposition home health service (06) | DRG 854 ==
LOC: ER 19:06 → MEDSURG 19:40
PROVIDERS: Physician Assistant; Surgery; Admitting Provider Internal Medicine; PCP Internal Medicine; Visit Provider Family Medicine
PROC: 0JBB0ZZ Excision of Perineum Subcutaneous Tissue and Fascia, Open Approach (ICD-10-PCS; principal; 2019-10-11 14:10)
DX: A41.9 Sepsis, unspecified organism (principal); K61.2 Anorectal abscess; N17.9 Acute kidney failure, unspecified; E11.22 Type 2 diabetes mellitus with diabetic chronic kidney disease; I12.9 Hypertensive chronic kidney disease with stage 1 through stage 4 chronic kidney disease, or unspecified chronic kidney disease; N18.2 Chronic kidney disease, stage 2 (mild); M79.7 Fibromyalgia; E66.01 Morbid (severe) obesity due to excess calories; Z68.31 Body mass index [BMI] 31.0-31.9, adult; D64.9 Anemia, unspecified; B95.2 Enterococcus as the cause of diseases classified elsewhere; B96.20 Unspecified Escherichia coli [E. coli] as the cause of diseases classified elsewhere
CPT/HCPCS: 12345; 36415; 36416; 72193; 80053; 82962; 83036; 83605; 85025; 85651; 86140; 87040; 87070; 87075; 87077; 87176; 87186; 87205; 96372; 96375; 99283; J0131; J1644; J1815; J2001; J2020; J2270; J2405; J2543; J2704; J2710; J3010; J3370; J3490; J7030; J7040; J7050; Q9967

== ENCOUNTER 2019-10-20 09:08 | Outpatient (CLI) | payer MEDICARE, SELFPAY | END 2019-10-20 09:09 | disposition home or self-care (01) | LOC: WOUND 09:11 | PROVIDERS: PCP Internal Medicine; Visit Provider Surgery | DX: T81.89XA Other complications of procedures, not elsewhere classified, initial encounter (principal); Y83.8 Other surgical procedures as the cause of abnormal reaction of the patient, or of later complication, without mention of misadventure at the time of the procedure | CPT/HCPCS: 11042 ==

== ENCOUNTER 2019-10-22 11:11 | Outpatient (CLI) | payer MEDICARE, SELFPAY | END 2019-10-22 11:12 | disposition home or self-care (01) | PROVIDERS: PCP Internal Medicine; Visit Provider Surgery | DX: R19.7 Diarrhea, unspecified (principal) | CPT/HCPCS: 82274; 83630; 87493; 87506 ==

== ENCOUNTER 2019-10-25 13:51 | Outpatient (CLI) | payer MEDICARE, SELFPAY | END 2019-10-25 13:52 | disposition home or self-care (01) | LOC: WOUND 13:52 | PROVIDERS: PCP Internal Medicine; Visit Provider Thoracic Surgery (Cardiothoracic Vascular Surgery) | DX: Z51.89 Encounter for other specified aftercare (principal) | CPT/HCPCS: 99212 ==

== ENCOUNTER 2019-11-03 10:28 | Outpatient (CLI) | payer MEDICARE, SELFPAY | END 2019-11-03 10:29 | disposition home or self-care (01) | LOC: WOUND 10:40 | PROVIDERS: PCP Internal Medicine; Visit Provider Surgery | DX: T81.89XA Other complications of procedures, not elsewhere classified, initial encounter (principal) | CPT/HCPCS: 11042 ==

== ENCOUNTER 2019-11-10 10:55 | Outpatient (CLI) | payer MEDICARE, SELFPAY | END 2019-11-10 10:56 | disposition home or self-care (01) | LOC: WOUND 10:55 | PROVIDERS: PCP Internal Medicine; Visit Provider Surgery | DX: T81.89XA Other complications of procedures, not elsewhere classified, initial encounter (principal) | CPT/HCPCS: 11042 ==

== ENCOUNTER 2019-11-17 13:19 | Outpatient (CLI) | payer MEDICARE, SELFPAY | END 2019-11-17 13:20 | disposition home or self-care (01) | LOC: WOUND 13:23 | PROVIDERS: PCP Internal Medicine; Visit Provider Surgery | DX: T81.89XA Other complications of procedures, not elsewhere classified, initial encounter (principal) | CPT/HCPCS: 11042 ==

== ENCOUNTER 2019-11-24 13:07 | Outpatient (CLI) | payer MEDICARE, SELFPAY | END 2019-11-24 13:08 | disposition home or self-care (01) | LOC: WOUND 13:09 | PROVIDERS: PCP Internal Medicine; Visit Provider Surgery | DX: T81.89XA Other complications of procedures, not elsewhere classified, initial encounter (principal) | CPT/HCPCS: 11042 ==

== ENCOUNTER 2019-12-01 10:59 | Outpatient (CLI) | payer MEDICARE, SELFPAY | END 2019-12-01 11:00 | disposition home or self-care (01) | LOC: WOUND 10:59 | PROVIDERS: PCP Internal Medicine; Visit Provider Thoracic Surgery (Cardiothoracic Vascular Surgery) | DX: T81.89XA Other complications of procedures, not elsewhere classified, initial encounter (principal) | CPT/HCPCS: 11042 ==

== ENCOUNTER 2019-12-15 10:56 | Outpatient (CLI) | payer MEDICARE, SELFPAY | END 2019-12-15 10:57 | disposition home or self-care (01) | LOC: WOUND 10:57 | PROVIDERS: PCP Internal Medicine; Visit Provider Surgery | DX: T81.89XA Other complications of procedures, not elsewhere classified, initial encounter (principal) | CPT/HCPCS: 11042 ==

== ENCOUNTER 2019-12-22 10:26 | Outpatient (CLI) | payer MEDICARE, SELFPAY | END 2019-12-22 10:27 | disposition home or self-care (01) | LOC: WOUND 10:28 | PROVIDERS: PCP Internal Medicine; Visit Provider Surgery | DX: T81.89XA Other complications of procedures, not elsewhere classified, initial encounter (principal) | CPT/HCPCS: 99212 ==

== ENCOUNTER 2020-06-26 08:01 | Outpatient (CLI) | payer MEDICARE, SELFPAY ==
--- NOTE | 2020-06-26 08:18 | MM_ITS ---
WS: [id number] BILATERAL DIGITAL SCREENING MAMMOGRAPHY WITH CAD CLINICAL INFORMATION: SCREENING HISTORY: Screening mammogram. No current complaints. COMPARISON: TECHNIQUE: Bilateral CC and MLO views. FINDINGS: Scattered fibroglandular densities bilaterally. No suspicious focal mass, asymmetry, calcifications, or architectural distortion. No evidence of malignancy. Punctate and lucent centered calcifications. Vascular calcification. MM/[id number] IMPRESSION: BI-RADS: 2-Benign FOLLOW UP: 1 Year Follow-up Recommend return to annual screening mammography.
== END 2020-06-26 08:02 | disposition home or self-care (01) ==
LOC: RADSHAW 08:04
PROVIDERS: PCP Internal Medicine; Visit Provider Internal Medicine
DX: Z12.31 Encounter for screening mammogram for malignant neoplasm of breast (principal)
CPT/HCPCS: 77067

== ENCOUNTER → 2020-10-23 15:24 | Outpatient (BNVA) | payer MEDICARE, SELFPAY | PROVIDERS: PCP Internal Medicine; Visit Provider Specialist | DX: M25.562 Pain in left knee (principal); M77.8 Other enthesopathies, not elsewhere classified; Z46.89 Encounter for fitting and adjustment of other specified devices; S89.92XD Unspecified injury of left lower leg, subsequent encounter; X58.XXXD Exposure to other specified factors, subsequent encounter | CPT/HCPCS: 73560; 73565; 97760; L1812 ==

== ENCOUNTER 2020-10-23 16:43 | Outpatient (CLI) | payer MEDICARE, SELFPAY | END 2020-10-23 16:44 | disposition home or self-care (01) | LOC: SPT 16:44 | PROVIDERS: PCP Internal Medicine; Visit Provider Specialist | DX: Z46.89 Encounter for fitting and adjustment of other specified devices (principal); S89.92XD Unspecified injury of left lower leg, subsequent encounter; X58.XXXD Exposure to other specified factors, subsequent encounter | CPT/HCPCS: 97760; L1812 ==

== ENCOUNTER 2020-11-12 07:47 | Outpatient (CLI) | payer MEDICARE, SELFPAY ==
--- NOTE | 2020-11-12 08:00 | MR_ITS ---
WS: [id number] MRI LEFT KNEE HISTORY: S89.90XA - Unspecified injury of unspecified lower leg, fall and pain. COMPARISON: 10/23/2020 Anterior cruciate ligament: Intact. Posterior cruciate ligament: Intact. Medial collateral ligament: Intact. Posterior lateral corner structures: Intact. Medial menisci: Intact. Normal signal, size and shape. Lateral meniscus: Intrasubstance degeneration in the posterior horn. There is slight extrusion from t he joint space. No definite tear is identified. Extensor mechanism: Distal quadriceps tendon and patellar tendons are intact. Fluid and soft tissue: Very large Fowler's cyst. There is extensive soft tissue edema surrounding the entire knee. No Fowler's cyst. Osseous and articular structures: Patellofemoral compartment: Osteochondral lesion along the patellar eminence. Very mild loss of carti wan over the medial facet and at the patellar eminence. No fracture or displacement. Medial compartment: Very mild narrowing of the medial compartment. No marrow edema. Very slight fissu ring of the cartilage. Lateral compartment: Very mild narrowing of the lateral compartment. There is marrow edema along the weightbearing surface of the femoral condyle and extending towards the posterior nonweightbearing [place] face. There is an osteochondral lesion towards the posterior femoral condyle. There is a additional m arrow edema in the lateral tibial plateau. MR/MR knee LT wo con* [id number] IMPRESSION: 1. Marrow edema along the weightbearing surfaces of the lateral femoral condyl e and lateral tibial plateau. 2. Additional osteochondral lesion in the posterior nonweightbearing surface o f the lateral femoral condyle. 3. Large joint effusion and extensive subcutaneous pain is edema. 4. Intrasubstance degeneration posterior horn lateral meniscus but no definite tear identified. 5. Osteochondral lesion at the patellar eminence with loss of cartilage over t he medial facet.
== END 2020-11-12 07:48 | disposition home or self-care (01) ==
LOC: RADSHAW 07:47
PROVIDERS: PCP Internal Medicine; Visit Provider Specialist
DX: S89.92XA Unspecified injury of left lower leg, initial encounter (principal); X58.XXXA Exposure to other specified factors, initial encounter; R60.0 Localized edema; M25.462 Effusion, left knee
CPT/HCPCS: 73721

== ENCOUNTER → 2020-11-25 13:30 | Outpatient (BNVA) | payer MEDICARE, SELFPAY | PROVIDERS: PCP Internal Medicine; Visit Provider Specialist | DX: M17.12 Unilateral primary osteoarthritis, left knee (principal) | CPT/HCPCS: 80500; 89051 ==

== ENCOUNTER 2021-08-22 13:59 | Outpatient (CLI) | payer MEDICARE, SELFPAY ==
--- NOTE | 2021-08-22 14:13 | XR_ITS ---
WS: [id number] SCREENING DEXA SCAN [email or web address] CLINICAL INFORMATION: POST MENOPAUSAL COMPARISON: 2019 FINDINGS: The L1-L4 bone mineral density measures 1.431 g/cm2. This corresponds to a T score score of 2.1 and Z score of 3.1. Left femoral neck bone mineral density measures 1.132 g/cm2. This corresponds to a T score of 1.0 and Z score of 2.1. Right femoral neck bone mineral density measures 1.115 g/cm2. This corresponds to a T score 0.9of and Z score of 1.9. Mean femoral neck bone mineral density measures 1.124 g/cm2. This corresponds to a T score of 0.9 and Z score of 2.0. XR/XR DEXA axial skeleton* [id number] IMPRESSION: Normal bone mineralization. Patient's FRAX calculated 10 year probability for major osteoporotic fracture i s 7.0 % and osteoporotic hip fracture is 0.4%.
--- NOTE | 2021-08-22 14:28 | MM_ITS ---
WS: [id number] BILATERAL 3D TOMOSYNTHESIS DIGITAL SCREENING MAMMOGRAPHY WITH CAD CLINICAL INFORMATION: SCREENING HISTORY: Screening mammogram. No current complaints. COMPARISON: June 26, 2020 TECHNIQUE: Bilateral CC and MLO views. FINDINGS: Scattered fibroglandular densities bilaterally. Punctate and lucent centered calcifications. Vascular calcification. No suspicious focal mass, asymmetry, calcifications, or architectural distortion. No evidence of malignancy. MM/[id number] IMPRESSION: BI-RADS: 2-Benign FOLLOW UP: 1 Year Follow-up Recommend return to annual screening mammography.
== END 2021-08-22 14:00 | disposition home or self-care (01) ==
LOC: RAD 14:02
PROVIDERS: PCP Internal Medicine; Visit Provider Nurse Practitioner Family
DX: Z78.0 Asymptomatic menopausal state (principal)
CPT/HCPCS: 77063; 77067; 77080

== ENCOUNTER → 2021-09-11 09:57 | Outpatient (BNVA) | payer MEDICARE, SELFPAY | PROVIDERS: PCP Internal Medicine; Visit Provider Specialist | DX: M17.12 Unilateral primary osteoarthritis, left knee (principal); Z71.89 Other specified counseling | CPT/HCPCS: 20610 ==

== ENCOUNTER → 2021-12-07 14:52 | Outpatient (BNVA) | payer MEDICARE, SELFPAY | PROVIDERS: PCP Internal Medicine; Visit Provider Nurse Practitioner Family | DX: J06.9 Acute upper respiratory infection, unspecified (principal) | CPT/HCPCS: 87426 ==

== ENCOUNTER → 2021-12-11 11:00 | Outpatient (BNVA) | payer MEDICARE, SELFPAY | PROVIDERS: PCP Internal Medicine; Visit Provider Specialist | DX: M17.12 Unilateral primary osteoarthritis, left knee (principal) | CPT/HCPCS: 20610; J1100; J2795; J3301 ==

== ENCOUNTER → 2022-01-12 12:59 | Outpatient (BNVA) | payer MEDICARE, SELFPAY | PROVIDERS: PCP Internal Medicine; Referring Provider Dermatology; Visit Provider Podiatrist Foot & Ankle Surgery | DX: L84 Corns and callosities (principal); E11.9 Type 2 diabetes mellitus without complications; M76.829 Posterior tibial tendinitis, unspecified leg; L90.9 Atrophic disorder of skin, unspecified; M20.41 Other hammer toe(s) (acquired), right foot; M20.42 Other hammer toe(s) (acquired), left foot; M20.12 Hallux valgus (acquired), left foot; M20.11 Hallux valgus (acquired), right foot; Z79.84 Long term (current) use of oral hypoglycemic drugs | CPT/HCPCS: 17110; 99203 ==

== ENCOUNTER → 2022-03-12 08:37 | Outpatient (BNVA) | payer MEDICARE, SELFPAY | PROVIDERS: PCP Internal Medicine; Visit Provider Specialist | DX: X58.XXXA Exposure to other specified factors, initial encounter (principal); M17.12 Unilateral primary osteoarthritis, left knee; S89.90XA Unspecified injury of unspecified lower leg, initial encounter | CPT/HCPCS: 20610; J1100; J2795; J3301 ==

== ENCOUNTER → 2022-03-23 10:00 | Outpatient (BNVA) | payer MEDICARE, SELFPAY | PROVIDERS: PCP Internal Medicine; Visit Provider Podiatrist Foot & Ankle Surgery | DX: Q82.8 Other specified congenital malformations of skin (principal); E11.9 Type 2 diabetes mellitus without complications; M76.829 Posterior tibial tendinitis, unspecified leg; L90.9 Atrophic disorder of skin, unspecified; M20.41 Other hammer toe(s) (acquired), right foot; M20.42 Other hammer toe(s) (acquired), left foot; M20.12 Hallux valgus (acquired), left foot; M20.11 Hallux valgus (acquired), right foot; Z79.84 Long term (current) use of oral hypoglycemic drugs | CPT/HCPCS: 17110 ==

== ENCOUNTER → 2022-04-02 07:54 | Outpatient (BNVA) | payer MEDICARE, SELFPAY | PROVIDERS: PCP Internal Medicine; Visit Provider Podiatrist Foot & Ankle Surgery | DX: Q82.8 Other specified congenital malformations of skin (principal); E11.9 Type 2 diabetes mellitus without complications; M76.829 Posterior tibial tendinitis, unspecified leg; L90.9 Atrophic disorder of skin, unspecified; M20.41 Other hammer toe(s) (acquired), right foot; M20.42 Other hammer toe(s) (acquired), left foot; M20.12 Hallux valgus (acquired), left foot; M20.11 Hallux valgus (acquired), right foot; G62.9 Polyneuropathy, unspecified; Z79.84 Long term (current) use of oral hypoglycemic drugs | CPT/HCPCS: 73630; 99214 ==

== ENCOUNTER → 2022-04-06 07:52 | Outpatient (BNVA) | payer MEDICARE, SELFPAY | PROVIDERS: PCP Internal Medicine; Referring Provider Internal Medicine; Visit Provider Internal Medicine | DX: E05.90 Thyrotoxicosis, unspecified without thyrotoxic crisis or storm (principal); R03.0 Elevated blood-pressure reading, without diagnosis of hypertension; E55.9 Vitamin D deficiency, unspecified; Z79.84 Long term (current) use of oral hypoglycemic drugs | CPT/HCPCS: 36415; 83516; 84439; 84443; 84480; 86376; 86800; 99204 ==

== ENCOUNTER → 2022-04-09 07:44 | Outpatient (BNVA) | payer MEDICARE, SELFPAY | PROVIDERS: PCP Internal Medicine; Visit Provider Podiatrist Foot & Ankle Surgery | DX: Q82.8 Other specified congenital malformations of skin (principal); E11.9 Type 2 diabetes mellitus without complications; M76.829 Posterior tibial tendinitis, unspecified leg; L90.9 Atrophic disorder of skin, unspecified; M20.41 Other hammer toe(s) (acquired), right foot; M20.42 Other hammer toe(s) (acquired), left foot; M20.12 Hallux valgus (acquired), left foot; M20.11 Hallux valgus (acquired), right foot; G62.9 Polyneuropathy, unspecified; M19.072 Primary osteoarthritis, left ankle and foot; Z79.84 Long term (current) use of oral hypoglycemic drugs | CPT/HCPCS: 99213 ==

== ENCOUNTER → 2022-04-23 08:00 | Outpatient (BNVA) | payer MEDICARE, SELFPAY | PROVIDERS: PCP Internal Medicine; Visit Provider Podiatrist Foot & Ankle Surgery | DX: E11.9 Type 2 diabetes mellitus without complications (principal); M76.829 Posterior tibial tendinitis, unspecified leg; L90.9 Atrophic disorder of skin, unspecified; Q82.8 Other specified congenital malformations of skin; M20.41 Other hammer toe(s) (acquired), right foot; M20.42 Other hammer toe(s) (acquired), left foot; M20.12 Hallux valgus (acquired), left foot; M20.11 Hallux valgus (acquired), right foot; G62.9 Polyneuropathy, unspecified; M19.079 Primary osteoarthritis, unspecified ankle and foot; Z79.84 Long term (current) use of oral hypoglycemic drugs | CPT/HCPCS: 99213 ==

== ENCOUNTER 2022-04-30 15:56 | Outpatient (CLI) | payer MEDICARE, SELFPAY ==
[2022-04-30 21:16] LABS: Free T4 Free Thyroxine 1.49 ng/dL (0.82-1.77)
[2022-05-04 09:49] LABS: T3 Total 100 ng/dL (76-181)
== END 2022-04-30 15:57 | disposition home or self-care (01) ==
LOC: LAB 15:58
PROVIDERS: PCP Internal Medicine; Visit Provider Internal Medicine
DX: E05.90 Thyrotoxicosis, unspecified without thyrotoxic crisis or storm (principal)
CPT/HCPCS: 36415; 84439; 84480

== ENCOUNTER → 2022-06-15 07:49 | Outpatient (BNVA) | payer MEDICARE, SELFPAY | PROVIDERS: PCP Internal Medicine; Visit Provider Internal Medicine | DX: E05.90 Thyrotoxicosis, unspecified without thyrotoxic crisis or storm (principal); R03.0 Elevated blood-pressure reading, without diagnosis of hypertension; E55.9 Vitamin D deficiency, unspecified | CPT/HCPCS: 36415; 84439; 84443; 84480; 84481; 99214 ==

== ENCOUNTER → 2022-06-18 08:27 | Outpatient (BNVA) | payer MEDICARE, SELFPAY | PROVIDERS: PCP Internal Medicine; Visit Provider Specialist | DX: M17.12 Unilateral primary osteoarthritis, left knee (principal); Z71.89 Other specified counseling | CPT/HCPCS: 20610; J1100; J2795; J3301 ==

== ENCOUNTER → 2022-06-29 10:17 | Outpatient (BNVA) | payer MEDICARE, SELFPAY | PROVIDERS: PCP Internal Medicine; Visit Provider Podiatrist Foot & Ankle Surgery | DX: E11.21 Type 2 diabetes mellitus with diabetic nephropathy (principal); Z79.84 Long term (current) use of oral hypoglycemic drugs; M76.829 Posterior tibial tendinitis, unspecified leg; L90.9 Atrophic disorder of skin, unspecified; Q82.8 Other specified congenital malformations of skin; M20.41 Other hammer toe(s) (acquired), right foot; M20.42 Other hammer toe(s) (acquired), left foot; M20.12 Hallux valgus (acquired), left foot; M20.11 Hallux valgus (acquired), right foot; G62.9 Polyneuropathy, unspecified; M19.079 Primary osteoarthritis, unspecified ankle and foot | CPT/HCPCS: 11055; 99213 ==

== ENCOUNTER 2022-08-14 10:19 | Outpatient (CLI) | payer MEDICARE, SELFPAY ==
[2022-08-14 11:14] LABS: Free T4 Free Thyroxine 1.01 ng/dL (0.82-1.77); T3 Free 1.7 PG/ML (2.0-4.4); Thyroid Stimulating Hormone 1.15 uIU/mL (0.27-4.20)
== END 2022-08-14 10:20 | disposition home or self-care (01) ==
LOC: LAB 10:27
PROVIDERS: PCP Internal Medicine; Visit Provider Internal Medicine
DX: E05.90 Thyrotoxicosis, unspecified without thyrotoxic crisis or storm (principal)
CPT/HCPCS: 36415; 84439; 84443; 84481

== ENCOUNTER → 2022-08-19 08:18 | Outpatient (BNVA) | payer MEDICARE, SELFPAY | PROVIDERS: PCP Internal Medicine; Visit Provider Internal Medicine | DX: E05.90 Thyrotoxicosis, unspecified without thyrotoxic crisis or storm (principal); R03.0 Elevated blood-pressure reading, without diagnosis of hypertension; E55.9 Vitamin D deficiency, unspecified | CPT/HCPCS: 99214 ==

== ENCOUNTER 2022-08-26 15:02 | Outpatient (CLI) | payer MEDICARE, SELFPAY ==
--- NOTE | 2022-08-26 15:10 | MM_ITS ---
WS: [id number] BILATERAL 3D TOMOSYNTHESIS DIGITAL SCREENING MAMMOGRAPHY WITH CAD CLINICAL INFORMATION: SCREENING HISTORY: Screening mammogram. No current complaints. COMPARISON: 08/15 TECHNIQUE: Bilateral CC and MLO views. FINDINGS: Scattered fibroglandular densities bilaterally. No suspicious focal mass, asymmetry, calcifications, or architectural distortion. No evidence of malignancy. Incidental punctate and lucent centered calci fications. Vascular calcifications. MM/[place] [id number] IMPRESSION: BI-RADS: 2-Benign FOLLOW UP: 1 Year Follow-up Recommend return to annual screening mammography.
== END 2022-08-26 15:03 | disposition home or self-care (01) ==
LOC: RAD 15:07
PROVIDERS: PCP Internal Medicine; Visit Provider Internal Medicine
DX: Z12.31 Encounter for screening mammogram for malignant neoplasm of breast (principal)
CPT/HCPCS: 77063; 77067

== ENCOUNTER → 2022-09-14 13:00 | Outpatient (BNVA) | payer MEDICARE, SELFPAY | PROVIDERS: PCP Internal Medicine; Visit Provider Podiatrist Foot & Ankle Surgery | DX: E11.9 Type 2 diabetes mellitus without complications (principal); Q82.8 Other specified congenital malformations of skin; G62.9 Polyneuropathy, unspecified; B35.3 Tinea pedis; Z79.84 Long term (current) use of oral hypoglycemic drugs | CPT/HCPCS: 11721; 99213 ==

== ENCOUNTER → 2022-10-15 10:32 | Outpatient (BNVA) | payer MEDICARE, SELFPAY | PROVIDERS: PCP Internal Medicine; Visit Provider Specialist | DX: M17.12 Unilateral primary osteoarthritis, left knee (principal); Z71.89 Other specified counseling | CPT/HCPCS: 20610; J1100; J2795; J3301 ==

== ENCOUNTER → 2022-10-23 09:56 | Outpatient (BNVA) | payer MEDICARE, SELFPAY | PROVIDERS: PCP Internal Medicine; Visit Provider Podiatrist Foot & Ankle Surgery | DX: M76.822 Posterior tibial tendinitis, left leg (principal); E11.42 Type 2 diabetes mellitus with diabetic polyneuropathy; G62.9 Polyneuropathy, unspecified | CPT/HCPCS: 73630; 99213 ==

== ENCOUNTER → 2022-10-30 09:04 | Outpatient (BNVA) | payer MEDICARE, SELFPAY | PROVIDERS: PCP Internal Medicine; Visit Provider Internal Medicine | DX: R03.0 Elevated blood-pressure reading, without diagnosis of hypertension (principal); E55.9 Vitamin D deficiency, unspecified; E05.90 Thyrotoxicosis, unspecified without thyrotoxic crisis or storm | CPT/HCPCS: 36415; 80053; 82306; 82607; 84439; 84443; 84480; 85025; 99214 ==

== ENCOUNTER → 2022-11-16 10:50 | Outpatient (BNVA) | payer MEDICARE, SELFPAY | PROVIDERS: PCP Internal Medicine; Visit Provider Podiatrist Foot & Ankle Surgery | DX: B35.1 Tinea unguium (principal); E11.42 Type 2 diabetes mellitus with diabetic polyneuropathy; G62.9 Polyneuropathy, unspecified; Z79.84 Long term (current) use of oral hypoglycemic drugs | CPT/HCPCS: 11721 ==

== ENCOUNTER → 2023-01-19 11:11 | Outpatient (BNVA) | payer MEDICARE, SELFPAY | PROVIDERS: PCP Internal Medicine; Visit Provider Internal Medicine | DX: E05.90 Thyrotoxicosis, unspecified without thyrotoxic crisis or storm (principal); E55.9 Vitamin D deficiency, unspecified; R03.0 Elevated blood-pressure reading, without diagnosis of hypertension; R40.0 Somnolence; M25.569 Pain in unspecified knee; M25.559 Pain in unspecified hip | CPT/HCPCS: 36415; 80053; 82306; 82607; 84439; 84443; 84480; 85025; 99214 ==

== ENCOUNTER → 2023-01-29 08:52 | Outpatient (BNVA) | payer MEDICARE, SELFPAY | PROVIDERS: PCP Internal Medicine; Visit Provider Podiatrist Foot & Ankle Surgery | DX: B35.1 Tinea unguium (principal); G62.9 Polyneuropathy, unspecified; Q82.8 Other specified congenital malformations of skin; E11.42 Type 2 diabetes mellitus with diabetic polyneuropathy; Z79.84 Long term (current) use of oral hypoglycemic drugs | CPT/HCPCS: 11055; 11721 ==

== ENCOUNTER → 2023-02-04 09:15 | Outpatient (BNVA) | payer MEDICARE, SELFPAY | PROVIDERS: PCP Internal Medicine; Visit Provider Specialist | DX: M17.12 Unilateral primary osteoarthritis, left knee (principal) | CPT/HCPCS: 73560; 73565; 99213 ==

== ENCOUNTER 2023-02-18 11:29 | Outpatient (CLI) | payer MEDICARE, SELFPAY ==
--- NOTE | 2023-02-18 | USCV_ITS ---
Milagro Olivarez Age: 72 Gender: F : 1950 Exam Date: 02/18/2023 13:09 Ordering Phys: Jersey Perez MD Technologist: MAKEDA [place] [facility] [place]: EDEMA BP: 147 / 72 HR: 63 Rhythm: Sinus Technical Quality: Adequate MEASUREMENTS (Male / Female) Normal Values 2D ECHO LVOT Diameter 2.0 cm LV Ejection Fraction MOD 2C 66.7 % LV Ejection Fraction 2C AL 64.1 % LA Diameter 3.1 cm LA Width 3.0 cm LA Height 6.3 cm RA Width 2.1 cm RA Height 5.1 cm Aorta at Sinotubular Diameter 2.0 cm IVC Diameter 1.2 cm M-MODE Aortic Annulus Diameter 2.5 cm LA Ao Ratio MM 1.1 MV E Point Septal Separation 0.7 cm DOPPLER AV Peak Velocity 138.0 cm/s LVOT Peak Velocity 94.0 cm/s AV Area Cont Eq vti 2.3 cm squared AV Area Cont Eq pk 2.2 cm squared MV Peak Velocity 87.0 cm/s MV Area PHT 3.6 cm squared Mitral E to A Ratio 1.4 MV E' Velocity 51.5 cm/s Mitral E to MV E' Ratio 7.5 Mitral E to LV E' Lateral Ratio 6.2 Mitral E to LV E' Septal Ratio 9.5 TR Peak Velocity 179.1 cm/s TR Peak Gradient 12.8 mmHg TR Mean Velocity 146.5 cm/s TR Mean Gradient 9.2 mmHg TR Velocity Time Integral 56.1 cm TV Peak E Velocity 41.0 cm/s Right Atrial Pressure 3.0 mmHg Pulmonary Artery Systolic Pressu 15.8 mmHg PV Peak Velocity 58.0 cm/s RV Acceleration Time 0.1 s RV Ejection Time 0.3 s RV AcT/ET 0.4 FINDINGS Left Ventricle Normal left ventricular size, systolic function and wall thickness, with no regional wall motion abnormalities. Left ventricular ejection fraction is estimated at 60 %. Normal diastolic function. Right Ventricle Normal right ventricular size and systolic function. Right ventricular systolic pressure 15.8 mmHg. Right Atrium Normal right atrial size. Left Atrium Mildly increased left atrial size. Mitral Valve Structurally normal mitral valve. No mitral valve stenosis. Trace to mild mitral valve regurgitation. Aortic Valve Structurally normal trileaflet aortic valve. No aortic valve stenosis. No aortic valve regurgitation. Tricuspid Valve Structurally normal tricuspid valve. No tricuspid valve stenosis. No tricuspid valve regurgitation. Pulmonic Valve Pulmonic valve not well visualized. Pericardium No pericardial effusion. Aorta Normal size aortic root and proximal ascending aorta. IVC Normal IVC dimension with >50% respiratory change of the inferior vena cava. CONCLUSIONS 1. Normal left ventricular size, systolic function and wall thickness, with no regional wall motion abnormalities. Left ventricular ejection fraction is estimated at 60 %. Normal diastolic function. 2. Trace to mild mitral valve regurgitation. 3. Mildly increased left atrial size. 4. No prior similar studies to compare. Aleena Monahan MD (Electronically Signed) Final Date: 21 February 2023 15:14 S
== END 2023-02-18 11:30 | disposition home or self-care (01) ==
PROVIDERS: PCP Internal Medicine; Visit Provider Family Medicine
DX: I34.0 Nonrheumatic mitral (valve) insufficiency (principal); R60.0 Localized edema; I51.7 Cardiomegaly
CPT/HCPCS: 93306

== ENCOUNTER 2023-02-26 13:23 | Outpatient (CLI) | payer MEDICARE, SELFPAY ==
[2023-02-26 14:24] LABS: Free T4 Free Thyroxine 2.16 ng/dL (0.82-1.77); Thyroid Stimulating Hormone 0.01 uIU/mL (0.27-4.20)
[2023-02-27 10:14] LABS: T3 Total 153 ng/dL (76-181)
== END 2023-02-26 13:24 | disposition home or self-care (01) ==
LOC: LAB 13:25
PROVIDERS: PCP Internal Medicine; Visit Provider Internal Medicine
DX: E05.90 Thyrotoxicosis, unspecified without thyrotoxic crisis or storm (principal)
CPT/HCPCS: 36415; 84439; 84443; 84480

== ENCOUNTER → 2023-03-02 09:05 | Outpatient (BNVA) | payer MEDICARE, SELFPAY | PROVIDERS: PCP Internal Medicine; Visit Provider Internal Medicine | DX: E05.90 Thyrotoxicosis, unspecified without thyrotoxic crisis or storm (principal); E55.9 Vitamin D deficiency, unspecified; R03.0 Elevated blood-pressure reading, without diagnosis of hypertension; Z79.84 Long term (current) use of oral hypoglycemic drugs; M25.569 Pain in unspecified knee | CPT/HCPCS: 99214 ==

== ENCOUNTER → 2023-03-10 13:40 | Outpatient (BNVA) | payer MEDICARE, SELFPAY | PROVIDERS: PCP Internal Medicine; Visit Provider Nurse Practitioner | DX: S89.90XA Unspecified injury of unspecified lower leg, initial encounter (principal); M17.12 Unilateral primary osteoarthritis, left knee; M25.569 Pain in unspecified knee; X58.XXXA Exposure to other specified factors, initial encounter; Z46.89 Encounter for fitting and adjustment of other specified devices; S89.90XD Unspecified injury of unspecified lower leg, subsequent encounter; X58.XXXD Exposure to other specified factors, subsequent encounter | CPT/HCPCS: 36415; 73560; 73565; 80053; 81001; 83036; 85025; 87077; 87086; 87186; 97760; 99214; L1812 ==

== ENCOUNTER 2023-03-10 15:40 | Outpatient (CLI) | payer MEDICARE, SELFPAY | END 2023-03-10 15:41 | disposition home or self-care (01) | LOC: SPT 15:44 | PROVIDERS: PCP Internal Medicine; Visit Provider Nurse Practitioner | DX: Z46.89 Encounter for fitting and adjustment of other specified devices (principal); S89.90XD Unspecified injury of unspecified lower leg, subsequent encounter; X58.XXXD Exposure to other specified factors, subsequent encounter; M25.569 Pain in unspecified knee | CPT/HCPCS: 97760; 99214; L1812 ==

== ENCOUNTER 2023-03-23 13:00 | Outpatient (CLI) | payer MEDICARE, SELFPAY ==
--- NOTE | 2023-03-23 13:30 | CT_ITS ---
WS: [id number] CT LEFT KNEE, NONCONTRAST TECHNIQUE: Noncontrast CT of the LEFT knee to include the LEFT hip and ankle. CLINICAL INFORMATION: Pre surgical planning LEFT TKA COMPARISON: None. DLP: 949.[address] scans at [facility] use at least one of these dose optimization techniques: automated e xposure control; mA and/or kV adjustment per patient size (includes targeted exams where dose is matc hed to clinical indication); or iterative reconstruction. FINDINGS: Moderate to advanced tricompartmental arthritis LEFT knee. Hypertrophic patella. Small suprapatellar effusion. Soft tissue edema. Mild degenerative arthritis sacroiliac joints. Vascular calcification. M oderate suprasellar effusion. Hypertrophic change along the joint line. Soft tissue edema about the k nee. IMPRESSION: Images obtained for preoperative purposes.
== END 2023-03-23 13:01 | disposition home or self-care (01) ==
LOC: RAD 13:01
PROVIDERS: PCP Internal Medicine; Visit Provider Nurse Practitioner
DX: Z01.818 Encounter for other preprocedural examination (principal); M17.12 Unilateral primary osteoarthritis, left knee
CPT/HCPCS: 73700

== ENCOUNTER 2023-04-14 10:19 | Emergency (ER) | payer MEDICARE, SELFPAY ==
[2023-04-14 10:22] VITALS: BP 198/73; PULSE 59; RESP 18; TEMP 36.7; O2SAT 99; BMI 30.7
[2023-04-14 10:41] VITALS: BP 184/96; PULSE 65; O2SAT 99
--- NOTE | 2023-04-14 10:44 | W.ED.GENADLT ---
HPI - General Adult General: Chief complaint: General Medical Stated complaint: dr schneider, high blood pressure Time Seen by Provider: 04/14/23 10:38 Source: patient Mode of arrival: ambulatory Limitations: no limitations History of Present Illness: 72-year-old female has a history of hypertension she is seeing her intervention teacher today and was hypertensive in the office and was sent here. She has no symptoms she denies any chest pain denies any headache she is on lisinopril and propranolol she states she did take them this morning. States she has been under a lot of stress lately especially with the holidays. Associated symptoms: Deny chest pain, dyspnea, headache(s), nausea, rash or vomiting Review of Systems Const: Denies: fever(s), chills, body aches or change in appetite ENMT: Denies: throat pain or dental pain Card: Denies: chest pain Resp: Denies: dyspnea GI: Denies: abdominal pain, nausea, vomiting or diarrhea : Denies: dysuria Musc: Denies: neck pain or back pain Skin/Breast: Denies: rash Neuro: Denies: headache(s) PFSH ED PFSH: Medical History Anemia -acute macrocytic anemia; suspect that part of this is dilutional -baseline Hg previously wnl -continue to monitor; stable Hg so far CKD (chronic kidney disease) stage 2, GFR 60-89 ml/min -OTILIA on CKD stage 2 -baseline Cr wnl -improving renal function, continue to monitor -avoid nephrotoxins, renally dose meds Morbid obesity -BMI-32 kg/m2 Fibromyalgia -pain control as needed HTN (hypertension) -VSS; continue to monitor -renal impairment resolved, can resume ACEi Diabetes -NIDDM type II -A1c-6.9 -accucheks, ISS, hypoglycemia precautions -consistent carb diet -can resume oral meds on d/c Surgical History H/O vein stripping H/O vaginal surgery H/O foot surgery H/O: hysterectomy Family History Mother Multiple myeloma Social History Smoking and tobacco/nicotine status: never used tobacco/nicotine Alcohol intake: never Substance/Drug Use: never Household members: spouse Marital status: Current occupational status: retired Physical Exam Const: COMMON NORMALS: no acute distress, patient oriented x3 and healthy appearing HENMT: COMMON NORMALS: normocephalic and atraumatic HEAD & SCALP: normocephalic and atraumatic Eye: COMMON NORMALS: conjunctivae normal CONJUNCTIVA: Yes conjunctivae normal Neck/C-Spine: COMMON NORMALS: full ROM and supple Chest: COMMONS NORMALS: normal inspection of the chest and normal palpation of entire chest wall Resp: COMMON NORMALS: normal respiratory effort, No retractions, No use of accessory muscles and clear to auscultation bilaterally AUSCULTATION: clear to auscultation bilaterally Cardio: COMMON NORMALS: regular rate, regular rhythm and No murmurs present (Cardio) RATE: regular rate RHYTHM: regular rhythm Extremity: COMMON NORMALS: normal to inspection and full ROM Neuro: COMMON NORMALS: patient oriented x3, moves all extremities and no focal motor deficits Psych: COMMON NORMALS: mental status grossly normal, Normal thought process present and cooperative THOUGHT PROCESS: Normal thought process present Skin: COMMON NORMALS: no rashes or lesions noted and no wounds GENERAL SKIN EXAM: no rashes or lesions noted Course Vital Signs: Vital signs: Vital Signs Temperature 98.0 F 04/14/23 10:22 Pulse Rate 65 04/14/23 11:36 Respiratory Rate 19 H 04/14/23 11:36 Blood Pressure 160/83 04/14/23 11:36 Pulse Oximetry 99 04/14/23 11:36 Oxygen Delivery Me thod Room Air 04/14/23 10:22 [facility] - General Adult Medical Decision Making Patient presents here with hypertension she is hyperthyroid I called her intervention teacher states she is going to follow her free T4 and T3 level and call her and change her meds her blood pressure here is improved she is asymptomatic she is stable for discharge at this time return if worsening. Medical Records I reviewed the patient's medical records. Lab Data I reviewed the patient's lab results. 04/14/23 11:01 04/14/23 11:01 Laboratory Results WBC 7.23 10^3/uL (3.29-11.43) 04/14/23 11:01 RBC 3.72 10^6/uL (3.85-5.65) L 04/14/23 11:01 Hgb 11.30 g/dL (11.27-16.99) 04/14/23 11:01 Hct 35.4 % (36-47) L 04/14/23 11:01 MCV 95.2 fl (85-98) 04/14/23 11:01 MCH 30.4 pg (27-33) 04/14/23 11:01 MCHC 31.9 g/dL (30-55) 04/14/23 11:01 RDW 13.8 % (12.1-15.1) 04/14/23 11:01 Plt Count 207 10^3/cmm (157-399) 04/14/23 11:01 MPV 9.2 fL (7.4-10.4) 04/14/23 11:01 Neut % (Auto) 60.2 % 04/14/23 11:01 Lymph % (Auto) 23.8 % 04/14/23 11:01 [place] % (Auto) 6.5 % 04/14/23 11:01 Eos % (Auto) 8.4 % 04/14/23 11:01 Baso % (Auto) 0.8 % 04/14/23 11:01 Neut # (Auto) 4.35 10^3/uL (1.8-7.7) 04/14/23 11:01 Lymph # (Auto) 1.7 10^3/uL (0.8-4.8) 04/14/23 11:01 [place] # (Auto) 0.5 10^3/uL (0.2-0.9) 04/14/23 11:01 Eos # (Auto) 0.6 10^3/uL (0.0-0.8) 04/14/23 11:01 Baso # (Auto) 0.1 10^3/uL (0.0-0.1) 04/14/23 11:01 Nucleated RBC % (auto) 0 % 04/14/23 11:01 Nucleated RBCs # 0.0 /100WBC 04/14/23 11:01 Sodium 138 mmol/L (136-145) 04/14/23 11:01 Potassium 4.9 mmol/L (3.5-5.1) 04/14/23 11:01 Chloride 102 mmol/L (98-107) 04/14/23 11:01 Carbon Dioxide 29 mmol/L (22-29) 04/14/23 11:01 Anion Gap 11.9 (5-19) 04/14/23 11:01 BUN 14 mg/dL (8-23) 04/14/23 11:01 Creatinine 1.2 mg/dL (0.5-0.9) H 04/14/23 11:01 GFR Calculation Not Reportable 04/14/23 11:01 Glucose 162 mg/dL (65-115) H 04/14/23 11:01 Calculated Osmolality 290 mOsm/kg (285-295) 04/14/23 11:01 Calcium 9.2 mg/dL (8.5-10.5) 04/14/23 11:01 Total Bilirubin 0.2 mg/dL (0.15-1.2) 04/14/23 11:01 AST 15 U/L (0-32) 04/14/23 11:01 ALT 15 U/L (0-33) 04/14/23 11:01 Alkaline Phosphatase 124 U/L (35-105) H 04/14/23 11:01 Total Protein 6.5 g/dL (6.6-8.7) L 04/14/23 11:01 Albumin 3.9 g/dL (3.5-5.2) 04/14/23 11:01 Globulin 2.6 g/dL (1.3-4.6) 04/14/23 11:01 TSH 0.25 uIU/mL (0.27-4.20) L 04/14/23 11:01 All radiology interpretation(s) finalized by discharge Discharge Plan Discharge Patient Disposition: Home Clinical Impression: Hypertension Qualifiers: Hypertension type: unspecified Qualified Code(s): I10 - Essential (primary) hypertension Condition: Stable Prescriptions: No Action propranolol 20 mg tablet 20 mg PO BID clotrimazole-betamethasone 1-0.05 % cream 1 applic topical BID Qty: 45 0RF (DME) hinged knee brace See Rx Instructions .Route .MEDSUPPLY Qty: 1 0RF Rx Instructions: As directed (DME) Diabetic Shoes See Rx Instructions .Route .MEDSUPPLY Qty: 1 0RF Rx Instructions: As directed (DME) 3 pairs of inserts See Rx Instructions .Route .MEDSUPPLY Qty: 1 0RF Rx Instructions: As directed to [facility] (DME) diabetic shoes See Rx Instructions .Route .MEDSUPPLY Qty: 1 0RF Rx Instructions: As directed to [facility] (DME) Diabetic Shoes See Rx Instructions .Route .MEDSUPPLY Qty: 1 0RF Rx Instructions: As directed methimazole 10 mg tablet See Rx Instructions .ROUTE .COMPLEX Qty: 60 0RF Dose Instruction: TAKE 2 TABLETS BY MOUTH ONCE DAILY FOR 6 WEEKS Rx Instructions: TAKE 2 TABLETS BY MOUTH ONCE DAILY FOR 6 WEEKS citalopram 20 mg tablet 20 mg PO DAILY metformin 1,000 mg tablet 1,000 mg PO BID gabapentin 300 mg capsule 600 mg PO BID glipizide 5 mg tablet 5 mg PO BID hydrocodone-acetaminophen 7.5-325 mg tablet 1 tab PO PRN Qty: 30 0RF lisinopril 40 mg tablet 40 mg PO DAILY Discharge Orders: Discharge ED (Routine); Ordered 04/14/23 Ordered By: Charity Ball Referrals: Rosalino Almaraz DO [Primary Care Provider] - 1-3 days Discharge Diet: Advance as tolerated Discharge Activity: Resume usual activity Patient Instructions: Hyperthyroidism (ED), Hypertension (ED) Coding Level of Care Code ED Finished Carpet Inspector for Ruchi Bassett
--- NOTE | 2023-04-14 10:56 | ECG_ITS ---
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 Measurements Intervals [place] Rate: 63 P: 48 [place]: 144 QRS: 3 QRSD: 83 T: 29 QT: 428 QTc: 438 Interpretive Statements SINUS RHYTHM MODERATE VOLTAGE CRITERIA FOR LVH, CONSIDER NORMAL VARIANT [MEETS CRITERIA IN ONE OF: R(aVL), S(V1), R(V5), R(V5/V6)+S(V1)] No previous ECG available for comparison Electronically Signed On 04-14-2023 11:04:47 WELDING MACHINE SETTER by Aleena Monahan M.D. [id number]
[2023-04-14 11:08] LABS: Basophils # 0.1 10^3/uL (0.0-0.1); Basophils % 0.8 %; Eosinophils # 0.6 10^3/uL (0.0-0.8); Eosinophils % 8.4 %; Hematocrit 35.4 % (36-47); Lymphocytes # 1.7 10^3/uL (0.8-4.8); Lymphocytes % 23.8 %; Mean Corpuscular HGB Conc 31.9 g/dL (30-55); Mean Corpuscular Hemoglobin 30.4 pg (27-33); Mean Corpuscular Volume 95.2 fl (85-98); Mean Platelet Volume 9.2 fL (7.4-10.4); Monocytes # 0.5 10^3/uL (0.2-0.9); Monocytes % 6.5 %; Neutrophils # 4.35 10^3/uL (1.8-7.7); Neutrophils % 60.2 %; Nucleated Red Blood Cells % 0 %; Platelet Count 207 10^3/cmm (157-399); Red Blood Count 3.72 10^6/uL (3.85-5.65); Red Cell Distribution Width 13.8 % (12.1-15.1); White Blood Count 7.23 10^3/uL (3.29-11.43)
[2023-04-14 11:18] VITALS: BP 184/94; O2SAT 99
--- NOTE | 2023-04-14 11:18 | PC.PHAR ---
NEW ORDER FOR LISINOPRIL 40 MG FILLED VIA [facility] ORDER ON 03/13/23 90DS. WILL FOLLOW UP WITH VERBAL FROM THEM AND ADD INFO TO NOTES
[2023-04-14] MEDS: hyDRALAzine 20 mg/mL INJ 1 mL 10 MG IVP (11:23)
--- NOTE | 2023-04-14 11:35 | PC.NURSE ---
PT MEDS PUSHED BY AYESHA BECERRA
[2023-04-14 11:36] VITALS: BP 160/83; PULSE 65; RESP 19; O2SAT 99
[2023-04-14 11:36] LABS: Alanine Aminotransferase 15 U/L (0-33); Albumin Level 3.9 g/dL (3.5-5.2); Alkaline Phosphatase 124 U/L (35-105); Anion Gap 11.9 (5-19); Aspartate Amino Transferase 15 U/L (0-32); Blood Urea Nitrogen 14 mg/dL (8-23); Calcium 9.2 mg/dL (8.5-10.5); Carbon Dioxide 29 mmol/L (22-29); Chloride 102 mmol/L (98-107); Creatinine Clr Calc Pharmacy 44.6675; Globulin 2.6 g/dL (1.3-4.6); Glucose 162 mg/dL (65-115); Osmolality Calculated 290 mOsm/kg (285-295); Potassium 4.9 mmol/L (3.5-5.1); Sodium 138 mmol/L (136-145); Thyroid Stimulating Hormone 0.25 uIU/mL (0.27-4.20); Total Bilirubin 0.2 mg/dL (0.15-1.2); Total Protein 6.5 g/dL (6.6-8.7)
[2023-04-14 13:16] LABS: Free T4 Free Thyroxine 0.95 ng/dL (0.82-1.77)
[2023-04-15 09:15] LABS: T3 Total 85 ng/dL (76-181)
== END 2023-04-14 12:42 | disposition home or self-care (01) ==
PROVIDERS: Emergency Provider Emergency Medicine; PCP Internal Medicine
DX: E05.90 Thyrotoxicosis, unspecified without thyrotoxic crisis or storm (principal); R03.0 Elevated blood-pressure reading, without diagnosis of hypertension; E55.9 Vitamin D deficiency, unspecified; B37.9 Candidiasis, unspecified; Z79.84 Long term (current) use of oral hypoglycemic drugs; I12.9 Hypertensive chronic kidney disease with stage 1 through stage 4 chronic kidney disease, or unspecified chronic kidney disease; E11.22 Type 2 diabetes mellitus with diabetic chronic kidney disease; N18.2 Chronic kidney disease, stage 2 (mild)
CPT/HCPCS: 80053; 84439; 84443; 84480; 85025; 93005; 96374; 99215; 99284; J0360

== ENCOUNTER 2023-04-21 17:27 | Observation (INO) | payer MEDICARE, SELFPAY ==
[2023-04-21] VITALS (15 sets, daily range): BP systolic 119–150; BP diastolic 57–88; PULSE 64–82; RESP 16–18; TEMP 36.2–36.8; O2SAT 90–98; BMI 29.7; BMI 30.2
--- NOTE | 2023-04-21 12:13 | W.PM.OPSUD ---
Surgery/Procedure H&P Update DATE OF PROCEDURE: April 21, 2023 DATE H&P PERFORMED: 03/31/23 H&P UPDATE INFORMATION: I have reviewed H&P completed within last 30 days, I have examined patient prior to procedure, No changes to prior documentation and H&P is in [facility] EMR on date indicated PLANNED PROCEDURE: Operation Date: 04/21/23 13:25 Proposed Procedures p Left Shaq Robot Total Knee Arthroplasty(Left) - Heena Chow MD Related Problem List Diagnoses (1) Primary osteoarthritis of left knee:
[2023-04-21] MEDS: sodium chloride 0.9% 1,000 ML 30 ML IV (12:34)
[2023-04-21] MEDS: ondansetron 2 mg/ML SDV 2 mL 4 MG IVP (12:35)
[2023-04-21] MEDS: scopolamine 1.5 Patch 1 PATCH TRANSDERMA (12:35)
[2023-04-21] MEDS: acetaminophen 1,000 MG/100 ML PIGGYBACK 400 MG IV ×2 (12:35→20:45)
[2023-04-21] MEDS: gabapentin 300 mg Capsule PO (12:51)
[2023-04-21] MEDS: CELEcoxib 200 mg Capsule 400 MG PO (12:52)
[2023-04-21 13:30] LABS: Glucose Point of Care 269 mg/dL (70-110)
[2023-04-21] MEDS: insulin regular-human 100 units/1 mL 10 UNIT IVP (13:45)
[2023-04-21] MEDS: ceFAZolin 2,000 MG in sodium chloride 0.9% (plus) 50 ML 100 MG IV ×2 (14:20→23:03)
[2023-04-21] MEDS: vancomycin 1,000 MG SDV 1000 MG INTRA-ARTI (15:11)
[2023-04-21] MEDS: BUPivacaine 0.5% INJ 30 mL XX (15:11)
[2023-04-21] MEDS: BUPivacaine liposome 13.3 mg/mL SDV 10 mL 266 MG INFILTRATI (15:12)
[2023-04-21] MEDS: ceFAZolin 1,000 mg SDV 2000 MG IRRIGATION (15:13)
--- NOTE | 2023-04-21 17:44 | XRR_ITS ---
PROCEDURE INFORMATION: Exam: XR Left Knee Exam date and time: 04/21/2023 6:46 PM Age: 72 years old Clinical indication: Device placement; Joint replacement hardware; Prior surgery; Surgery date: Post-operative (0-2 days); Surgery type: Post op lt knee; Additional info: Left total knee arthroplasty TECHNIQUE: Imaging protocol: Radiologic exam of the left knee. Views: 1 or 2 views. COMPARISON: No relevant prior studies available. FINDINGS: Bones/joints: Total left knee arthroplasty. The bones and hardware appear intact. No fracture. Soft tissues: Surgery related gas in the soft tissues and knee joint. Clips in the medial calf. Vasculature: Arterial calcifications. XR/XR knee LT 1-2V [id number] IMPRESSION: Left knee arthroplasty.
--- NOTE | 2023-04-21 17:51 | PM.OP ---
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 deformity Post-op findings: Severe degenerative osteophyte left knee with valgus deformity, and osteophyte formation Procedure done: Left total knee arthroplasty with Shaq guidance Implants: The Bobby total knee system with a size 4 triathlon beaded cruciate retaining femur left, a triathlon titanium tibial component size 3 beaded, a triathlon X3 tibial bearing CS insert size 3 X 9 mm and a beaded triathlon titanium asymmetric patella size 32 x 10 mm Specimens removed/disposition: Bone, disposed of Pathology: None Surgeon: Heena Chow MD Hide Cooking Operator: [facility] operating room technicians Anesthesia: Spinal (With MAC and supplemental adductor block, ASA 3) Estimated blood loss (mL): 100 Tourniquet time (min): 0 (Not utilized) IV fluids (mL): 900 Urine output (mL): 200 Complications: None Findings: Significant degenerative osteoarthritis with denudement of cartilage, osteophytes, and valgus deformity Condition: stable Disposition: PACU (Then to floor for postoperative rehabilitation and pain management) Brief History: This 72-year-old woman presented to my office for left knee pain consistent with severe degenerative osteoarthritis. The patient had multiple series of injection therapies. The last injection was in September of this year. Initially, injections were beneficial for her, however, they began to have less and less effective. In fact, the last injection, lasted only 2 weeks. The patient presented for discussion of surgical intervention. She had significant limitations in her activities of daily living. After discussion, the patient wished to proceed. Patient was informed of risks and complications. Consents were signed, and questions were answered. Procedure: The patient was brought to the operating theater, and after undergoing spinal anesthetic, with supplemental adductor canal block, ASA 3, the left lower extremity was prepped with Dura-Prep and draped in usual fashion following placement of a tourniquet high on the leg. The leg was then draped free.? Tourniquet was not elevated during the case.? A surgical pause was performed, and at the time of the surgical pause, we confirmed the site and side of surgery. Additionally, we confirmed the appropriate and timely administration of preoperative antibiotics, Ancef 2 g.? The availability of equipment was confirmed, and the patient's identity was verbalized as well.? Following the surgical pause, an incision was made centering over the patella continuing proximally and distally as necessary to allow access to the knee joint. Dissection continued through skin and soft tissues using a scalpel. Hemostasis was obtained using electrocautery. The skin incision was followed by a median parapatellar arthrotomy. The leg was extended and the patella was able to be displaced laterally.? Appropriate arrays and markers were placed in appropriate position for use of the Shaq.? Preoperative planning had been accomplished and was discussed in detail with the [facility] bank representative.? Intraoperative mapping of the femur and tibia was accomplished after the arrays were placed.? Internal markers were also placed.? Once we had accomplished the Shaq mapping, we began the appropriate resections for placement of the prosthesis.? The plan was for a cruciate retaining right total knee arthroplasty. Once appropriate mapping had been accomplished retraction was established using manual retraction by surgical technicians and also the Shaq leg positioner and retractors.? The knee was evaluated.? There was significant osteoarthritic change as well as slight flexion contracture.? Appropriate bone resection was accomplished using the Shaq.? The femur was sized to a size 4.? Following femoral cuts, attention was directed to the tibia.? Osteophytes were removed prior to this portion of the procedure.? We had performed a minimal medial release at the beginning of the procedure to allow for placement of the array.? Proximal tibia was evaluated, and it was felt that appropriate size for the tibia was a size 3.? Tray was noted to fit nicely with good coverage.? Rim fit was accomplished with the size 3. A trial reduction was accomplished after osteophytes have been removed as well as the medial and lateral menisci.? We had removed the anterior cruciate ligament at the beginning of the case and preserved the posterior cruciate ligament.? Trial reduction was accomplished with a size 4 femoral cruciate retaining component and a size 3 CS tibial bearing insert which was 9 mm in thickness.? Alignment was felt to be appropriate as well.? Trial components were removed after the femur had been drilled.? Prior to removal of the tibial tray which had been pinned in position with appropriate rotation as determined by the Shaq plan, we broached the tibia.? Subsequently, the 4 drill holes were made for the prosthetic component.? All trial components were removed, and the wound was irrigated.? Plans were made for insertion of the prosthetic components.? Prior to this, the patella was manually prepared.? After resection of the articular surface with the jogging system, it was measured and measured a 32 mm patella.? We resected approximately 10 mm of patella.? Patellar height was restored with the patellar component. Once again, the wound was irrigated.? The Tritanium tibia was impacted into position.? The beaded femur was then impacted into position in a cementless fashion. The CS tibial insert was placed prior to placement of the femoral component. The patella was pressed into position with a patellar clamp.? Exparel was injected about the components deep and superficially.? The knee was then copiously irrigated with betadine and saline and suctioned dry. Attention was then directed to closure. Closure was accomplished with 0 Vicryl in the fascial tissues.? The suture line of 0 Vicryl was supplemented with strata fix, #1, with a running stitch from proximal to distal and a second running stitch from distal to proximal.? This was followed by Surgiflo and vancomycin powder.? Following this, a 2-0 Monocryl was used in the subcutaneous tissues, and the skin was closed with 3-0 Strata fix.? Care was taken to assure an excellent subcutaneous as well as skin closure.? A sterile dressing was then placed consisting of Dermabond Prineo, OpSite, ABD, sterile soft roll, and an Usman wrap including over the foot. The patient was returned the Recovery Room in a satisfactory condition. X-rays were obtained and reviewed there.? The patient will be discharged to the floor for postoperative rehabilitation and pain management. Related Problem List Diagnoses (1) Primary osteoarthritis of left knee: (2) Valgus deformity, not elsewhere classified, left knee:
--- NOTE | 2023-04-21 18:09 | SUR.PHASEI ---
Per Dr Chow, reported to nurse Beaulieu that patient should not get TXA as she has history of DVTs.
--- NOTE | 2023-04-21 18:10 | SUR.PHASEI ---
LE 1810 Pt has bilat foot pumps and are connected to pump. Pump working.
--- NOTE | 2023-04-21 18:47 | ANE.PACU2 ---
Inpatient post-anesthesia follow up: Airway intact: Yes Vital signs: Temperature 97.8 F Pulse Rate 57 Respiratory Rate 16 Blood Pressure 117/62 Pulse Oximetry 95 Oxygen Delivery Me thod Room Air Oxygen Flow Rate 90 Fraction of Inspir ed Oxygen Hydration adequate: Yes Nausea and vomiting: No Pain level: 1 Mental status: Baseline
[2023-04-21] MEDS: calcium carbonate 500 mg Chew Tablet 1000 MG PO (18:59)
[2023-04-21] MEDS: sennosides-docusate Tablet 2 TAB PO (18:59)
[2023-04-21] MEDS: iron polysaccharide complex 150 mg Capsule PO (18:59)
[2023-04-21] MEDS: propranolol 20 mg Tablet PO (19:00)
[2023-04-21] MEDS: gabapentin 300 mg Capsule 600 MG PO (19:00)
[2023-04-21] MEDS: oxyCODONE 5 mg IR Tab/Cap PO ×2 (19:00→23:02)
[2023-04-21] MEDS: chlorhexidine gluconate 0.12% Btl 473 mL 30 ML MUCOUS MEM (20:45)
[2023-04-21] MEDS: nystatin cream 30 gm 1 APPLIC TOPICAL (20:45)
[2023-04-22] VITALS (8 sets, daily range): BP systolic 117–128; BP diastolic 55–67; PULSE 57–70; RESP 14–18; TEMP 36.4–36.6; O2SAT 94–97
[2023-04-22] MEDS: CELEcoxib 200 mg Capsule PO ×2 (01:02→13:19)
[2023-04-22] MEDS: acetaminophen 1,000 MG/100 ML PIGGYBACK 400 MG IV ×2 (04:44→13:19)
[2023-04-22] MEDS: oxyCODONE 5 mg IR Tab/Cap PO ×2 (05:06→09:47)
[2023-04-22 05:41] LABS: Basophils % 0.3 %; Eosinophils % 0.1 %; Hematocrit 28.4 % (36-47); Mean Corpuscular HGB Conc 31.7 g/dL (30-55); Mean Corpuscular Hemoglobin 30.9 pg (27-33); Mean Corpuscular Volume 97.6 fl (85-98); Monocytes # 0.8 10^3/uL (0.2-0.9); Monocytes % 6.3 %; Neutrophils # 10.44 10^3/uL (1.8-7.7); Neutrophils % 84.7 %; Nucleated Red Blood Cells % 0 %; Platelet Count 239 10^3/cmm (157-399); Red Blood Count 2.91 10^6/uL (3.85-5.65); Red Cell Distribution Width 13.7 % (12.1-15.1); White Blood Count 12.31 10^3/uL (3.29-11.43)
[2023-04-22] MEDS: ceFAZolin 2,000 MG in sodium chloride 0.9% (plus) 50 ML 100 MG IV (05:44)
[2023-04-22 06:02] LABS: Blood Urea Nitrogen 14 mg/dL (8-23); Calcium 8.8 mg/dL (8.5-10.5); Carbon Dioxide 24 mmol/L (22-29); Chloride 97 mmol/L (98-107); Glucose 340 mg/dL (65-115); Osmolality Calculated 290 mOsm/kg (285-295); Sodium 133 mmol/L (136-145)
[2023-04-22] MEDS: sennosides-docusate Tablet 2 TAB PO (08:10)
[2023-04-22] MEDS: nystatin cream 30 gm 1 APPLIC TOPICAL (08:10)
[2023-04-22] MEDS: chlorhexidine gluconate 0.12% Btl 473 mL 30 ML MUCOUS MEM (08:10)
[2023-04-22] MEDS: multivitamin therapeutic Tablet 1 TAB PO (08:10)
[2023-04-22] MEDS: lisinopril 20 mg Tablet 40 MG PO (08:10)
[2023-04-22] MEDS: aspirin 325 mg EC Tablet PO (08:11)
[2023-04-22] MEDS: iron polysaccharide complex 150 mg Capsule PO (08:11)
[2023-04-22] MEDS: metformin 500 mg Tablet 1000 MG PO (08:11)
[2023-04-22] MEDS: gabapentin 300 mg Capsule 600 MG PO (08:11)
[2023-04-22] MEDS: cholecalciferol (vitamin D3) 1,000 unit Tablet 1000 UNIT PO (08:11)
[2023-04-22] MEDS: methIMAzole 5 MG Tablet 25 MG PO (08:11)
[2023-04-22] MEDS: propranolol 20 mg Tablet PO (08:11)
[2023-04-22] MEDS: citalopram 20 mg Tablet PO (08:12)
[2023-04-22] MEDS: calcium carbonate 500 mg Chew Tablet 1000 MG PO (08:12)
[2023-04-22] MEDS: mupirocin oint 22 gm 1 APPLIC NASAL (08:13)
--- NOTE | 2023-04-22 11:23 | PM.DCS ---
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 Procedure done: Left total knee arthroplasty with Shaq guidance Implants: The Bobby total knee system with a size 4 triathlon beaded cruciate retaining femur left, a triathlon titanium tibial component size 3 beaded, a triathlon X3 tibial bearing CS insert size 3 X 9 mm and a beaded triathlon titanium asymmetric patella size 32 x 10 mm (2) Primary osteoarthritis of left knee: Status: Acute (3) Valgus deformity, not elsewhere classified, left knee: Status: Acute Reason for Visit Reason for Visit: M17.10 Brief History: This 72-year-old woman presented to my office for left knee pain consistent with severe degenerative osteoarthritis. The patient had multiple series of injection therapies. The last injection was in September of this year. Initially, injections were beneficial for her, however, they began to have less and less effective. In fact, the last injection, lasted only 2 weeks. The patient presented for discussion of surgical intervention. She had significant limitations in her activities of daily living. After discussion, the patient wished to proceed. Patient was informed of risks and complications. Consents were signed, and questions were answered. Hospital Course Hospital Course Patient was admitted under observation status to the hospital following same-day surgery for left total knee arthroplasty. The procedure was well-tolerated. The patient participated with physical therapy and did quite well. Dressings were removed on the day of discharge, postop day 1, and the wound was benign. The OpSite dressing was left in place. Patient had no swelling or evidence of DVT. She was neurologically intact. After discussion, the patient wished to be discharged to home. Arrangements were made for this and she will follow-up in the office as previously scheduled. Physical Exam Const: COMMON NORMALS: no acute distress, average body habitus, patient oriented x3 and alert GENERAL APPEARANCE: cooperative and comfortable ORIENTATION/CONSCIOUSNESS: Yes awake HENMT: COMMON NORMALS: normocephalic and atraumatic HEAD & SCALP: normocephalic and atraumatic Eye: GENERAL EYE: appearance normal, both eyes and all related structures Chest: COMMONS NORMALS: normal inspection of the chest Resp: COMMON NORMALS: normal respiratory effort EFFORT & INSPECTION: Yes able to speak in complete sentences and Yes symmetric chest movement Extremity: LEFT LOWER EXTREMITY: Yes knee joint (OpSite dressing left intact) Left knee: Yes inspection (Minimal to no swelling), Yes palpation (No significant discomfort), Yes ROM (Easily able to straight leg raise) and Yes neurovascular exam (Intact distally with no evidence of DVT) Neuro: COMMON NORMALS: patient oriented x3 SENSORIUM/ORIENTATION: Yes alert Psych: COMMON NORMALS: mental status grossly normal APPEARANCE: Yes grossly normal ATTITUDE: Yes calm and Yes engaged ATTENTION/CONCENTRATION: Yes attention grossly intact Skin: COMMON NORMALS: no rashes or lesions noted GENERAL SKIN EXAM: no rashes or lesions noted Urinary Catheter Management: Snow: Cath Placed During This Visit: yes, but has since been removed by the nurse Reason for Continuing Indwelling Catheter: Decision to DC Catheter Urinary Catheter Date of Insertion: 04/21/23 Urinary Catheter Time of Insertion: 14:30 Date Urinary Catheter Removed: 04/22/23 Time Urinary Catheter Discontinued: 05:18 Discharge Data Studies Completed and Pending Completed Studies During Hospitalization Category Date Time Status XR knee LT 1-2V 04390 Urgent Exams 04/21/23 17:44 Completed Radiology Impressions Knee X-Ray 04/21/23 17:44 IMPRESSION: Left knee arthroplasty. Laboratory Results WBC 12.31 10^3/uL (3.29-11.43) H 04/22/23 05:02 RBC 2.91 10^6/uL (3.85-5.65) L 04/22/23 05:02 Hgb 9.00 g/dL (11.27-16.99) L 04/22/23 05:02 Hct 28.4 % (36-47) L 04/22/23 05:02 MCV 97.6 fl (85-98) 04/22/23 05:02 MCH 30.9 pg (27-33) 04/22/23 05:02 MCHC 31.7 g/dL (30-55) 04/22/23 05:02 RDW 13.7 % (12.1-15.1) 04/22/23 05:02 Plt Count 239 10^3/cmm (157-399) 04/22/23 05:02 MPV 10.0 fL (7.4-10.4) 04/22/23 05:02 Neut % (Auto) 84.7 % 04/22/23 05:02 Lymph % (Auto) 8.0 % 04/22/23 05:02 Emmet % (Auto) 6.3 % 04/22/23 05:02 Eos % (Auto) 0.1 % 04/22/23 05:02 Baso % (Auto) 0.3 % 04/22/23 05:02 Neut # (Auto) 10.44 10^3/uL (1.8-7.7) H 04/22/23 05:02 Lymph # (Auto) 1.0 10^3/uL (0.8-4.8) 04/22/23 05:02 Emmet # (Auto) 0.8 10^3/uL (0.2-0.9) 04/22/23 05:02 Eos # (Auto) 0.0 10^3/uL (0.0-0.8) 04/22/23 05:02 Baso # (Auto) 0.0 10^3/uL (0.0-0.1) 04/22/23 05:02 Nucleated RBC % (auto) 0 % 04/22/23 05:02 Nucleated RBCs # 0.0 /100WBC 04/22/23 05:02 Sodium 133 mmol/L (136-145) L 04/22/23 05:02 Potassium 5.0 mmol/L (3.5-5.1) 04/22/23 05:02 Chloride 97 mmol/L (98-107) L 04/22/23 05:02 Carbon Dioxide 24 mmol/L (22-29) 04/22/23 05:02 Anion Gap 17.0 (5-19) 04/22/23 05:02 BUN 14 mg/dL (8-23) 04/22/23 05:02 Creatinine 1.2 mg/dL (0.5-0.9) H 04/22/23 05:02 GFR Calculation Not Reportable 04/22/23 05:02 Glucose 340 mg/dL (65-115) H 04/22/23 05:02 POC Glucose 269 mg/dL (70-110) H 04/21/23 12:25 Calculated Osmolality 290 mOsm/kg (285-295) 04/22/23 05:02 Calcium 8.8 mg/dL (8.5-10.5) 04/22/23 05:02 Vitals Last Vital Signs Temp 97.8 F 04/22/23 08:10 Pulse 57 L 04/22/23 08:10 Resp 16 04/22/23 09:47 BP 117/62 04/22/23 08:10 Pulse Ox 95 04/22/23 08:10 O2 Del Method Room Air 04/22/23 08:10 O2 Flow Rate 90 04/21/23 17:46 Discharge Plan Discharge Patient Disposition: Home Health Service Condition: Stable Prescriptions: New celecoxib 200 mg Capsule 200 mg PO Q12H 30 Days Qty: 60 0RF acetaminophen 500 mg Tablet 1,000 mg PO Q8H 15 Days Qty: 90 0RF aspirin 325 mg Tablet,Delayed Release (Dr/Ec) 325 mg PO DAILY 30 Days Qty: 0 0RF hydrocodone-acetaminophen 7.5-325 mg Tablet 1 tab PO Q4H PRN (Reason: Moderate Pain) 7 Days Qty: 30 0RF Continued propranolol 20 mg tablet 20 mg PO BID clotrimazole-betamethasone 1-0.05 % cream 1 applic topical BID Qty: 45 0RF (DME) hinged knee brace See Rx Instructions .Route .MEDSUPPLY Qty: 1 0RF Rx Instructions: As directed (DME) Diabetic Shoes See Rx Instructions .Route .MEDSUPPLY Qty: 1 0RF Rx Instructions: As directed (DME) 3 pairs of inserts See Rx Instructions .Route .MEDSUPPLY Qty: 1 0RF Rx Instructions: As directed to [facility] (DME) diabetic shoes See Rx Instructions .Route .MEDSUPPLY Qty: 1 0RF Rx Instructions: As directed to [facility] nystatin 100,000 unit/gram cream 1 applic topical BID Qty: 30 0RF methimazole 10 mg tablet 25 mg PO DAILY Qty: 100 0RF (DME) Diabetic Shoes See Rx Instructions .Route .MEDSUPPLY Qty: 1 0RF Rx Instructions: As directed citalopram 20 mg tablet 20 mg PO DAILY metformin 1,000 mg tablet 1,000 mg PO BID gabapentin 300 mg capsule 600 mg PO BID glipizide 5 mg tablet 5 mg PO BID hydrocodone-acetaminophen 7.5-325 mg tablet 1 tab PO PRN Qty: 30 0RF lisinopril 40 mg tablet 40 mg PO DAILY Discharge Orders: Discharge Order (Routine); Ordered 04/22/23 Ordered By: Heena Chow Other Ambulatory Orders: DME: Walker (Order) Location: None Selected Ordered By: Heena Chow Referrals: [facility] [Outside] Heena Chow MD [Physician] - 05/05/23 9:30 am Discharge Diet: Advance as tolerated and Usual diet Discharge Activity: Increase activity as tolerated, Limit activity as instructed, Use walker/crutches as instructed and As per PT/OT instructions Patient Instructions: Aspirin (By mouth), Oxycodone, Rapid Release (By mouth), Celecoxib (By mouth), Total Knee Replacement (GEN), Joint Replacement Stoplight, Opioid Safety Activity Restrictions/Additional Instructions: Ice and elevation to right lower extremity. Maintain dressing when you are discharged. You may shower, but do not soak your leg in water. Range of motion, strengthening, and gait training per physical therapy instructions. Discharge Attestations Time Spent in Discharge Care*: greater than 30 min Specific Discharge Activities: educating patient, documenting/other paperwork and evaluating patient/reviewing data Status at Discharge: Cognitive status at discharge: cognitively intact, Behavioral status at discharge: cooperative, Quality Metrics Clinical Quality Measures [ No reported AMI, CVA or VTE this stay] Coding Level of Care Code Acute Code for Chg Fwd Diagnoses Status post total left knee replacement not using cement Z96.652 Primary osteoarthritis of left knee M17.12 Valgus deformity, not elsewhere classified, left knee M21.062
[2023-04-22] MEDS: HYDROcodone-acetaminophen 7.5-325 mg Tablet 1 TAB PO (13:12)
== END 2023-04-22 16:21 | disposition home health service (06) ==
LOC: MEDSURG 17:29
PROVIDERS: Admitting Provider Specialist; PCP Internal Medicine; Visit Provider Specialist
PROC: 8E0Y0CZ Robotic Assisted Procedure of Lower Extremity, Open Approach (ICD-10-PCS; CPT 27447; principal; 2023-04-21 12:55)
DX: M17.12 Unilateral primary osteoarthritis, left knee (principal); M21.062 Valgus deformity, not elsewhere classified, left knee
CPT/HCPCS: 20985; 27447; 36415; 36416; 51702; 73560; 80048; 82962; 85025; 97110; 97116; 97161; 97165; 97530; C1776; C9290; G0378; J0131; J0690; J1100; J1815; J2405; J2704; J2795; J3370; J3490; J7030

== ENCOUNTER → 2023-05-05 09:25 | Outpatient (BNVA) | payer MEDICARE, SELFPAY | PROVIDERS: PCP Internal Medicine; Visit Provider Nurse Practitioner | DX: Z96.652 Presence of left artificial knee joint (principal); M17.12 Unilateral primary osteoarthritis, left knee | CPT/HCPCS: 73560; 73565; 99024 ==

== ENCOUNTER → 2023-05-20 10:12 | Outpatient (BNVA) | payer MEDICARE, SELFPAY | PROVIDERS: PCP Internal Medicine; Visit Provider Specialist | DX: Z96.652 Presence of left artificial knee joint (principal) | CPT/HCPCS: 99024 ==

== ENCOUNTER → 2023-06-02 09:31 | Outpatient (BNVA) | payer MEDICARE, SELFPAY | PROVIDERS: PCP Internal Medicine; Visit Provider Nurse Practitioner | DX: Z96.652 Presence of left artificial knee joint (principal); M17.12 Unilateral primary osteoarthritis, left knee | CPT/HCPCS: 73560; 73565; 99024 ==

== ENCOUNTER → 2023-06-28 13:46 | Outpatient (BNVA) | payer MEDICARE, SELFPAY | PROVIDERS: PCP Internal Medicine; Visit Provider Nurse Practitioner | DX: Z96.652 Presence of left artificial knee joint (principal); M79.662 Pain in left lower leg; M17.12 Unilateral primary osteoarthritis, left knee | CPT/HCPCS: 73560; 73565; 99024 ==

== ENCOUNTER 2023-06-29 08:26 | Outpatient (CLI) | payer MEDICARE, SELFPAY ==
--- NOTE | 2023-06-29 08:30 | USCV_ITS ---
Milagro Olivarez Age: 72 Gender: F : 1950 Exam Date: 06/29/2023 08:41 Ordering Phys: Cecelia Marcus Technologist: ELIOT Exam Location: [facility] [place] Indication: SWOLLEN LT LEG POST LT KNEE REPLACEMENT HISTORY: Recent lt knee replacement. Pain and swelling lt calf PROCEDURES: Venous duplex imaging was performed in only the left lower extremity. The following venous structures were evaluated: common femoral vein, profunda vein, proximal portion of the greater saphenous vein, superficial femoral vein, and the popliteal vein. In addition, the posterior tibial and peroneal trunk were evaluated. On the left side, the common femoral, superficial femoral, profunda femoral, popliteal, posterior tibial, greater saphenous veins, and the peroneal trunk were identified and interrogated in the standard fashion. These veins were found to be easily compressible with spontaneous blood flow. No evidence of insufficiency or thrombus noted. Serial compression, augmentation maneuvers, and spectral Doppler flow evaluation were performed. FINDINGS: The lt profunda appears to have an aged thrombus. There is still flow with augmenttion. Only partial compression seen. I could not demo flow in the prox lt gsv. All other vessels appear free of DVT. CONCLUSIONS [facility] notified Niecy Marcus with prelim at time of study Chronic non occlusive thrombus Left profunda Flow not visualized proximal GSV Remainder LLE vessels are patent . Julien Mcfadden MD (Electronically Signed) Final Date: 29 June 2023 16:59 S
== END 2023-06-29 08:27 | disposition home or self-care (01) ==
LOC: RAD 08:26
PROVIDERS: PCP Internal Medicine; Visit Provider Nurse Practitioner
DX: I82.512 Chronic embolism and thrombosis of left femoral vein (principal); M79.89 Other specified soft tissue disorders; Z96.652 Presence of left artificial knee joint
CPT/HCPCS: 93971

== ENCOUNTER → 2023-08-17 15:07 | Outpatient (BNVA) | payer MEDICARE, SELFPAY | PROVIDERS: PCP Internal Medicine; Visit Provider Orthopaedic Surgery | DX: M54.50 Low back pain, unspecified (principal); M54.9 Dorsalgia, unspecified; M48.062 Spinal stenosis, lumbar region with neurogenic claudication | CPT/HCPCS: 72110; 99204 ==

== ENCOUNTER → 2023-08-23 15:41 | Outpatient (BNVA) | payer MEDICARE, SELFPAY | PROVIDERS: PCP Internal Medicine; Visit Provider Podiatrist Foot & Ankle Surgery | DX: Q82.8 Other specified congenital malformations of skin (principal); B35.1 Tinea unguium; G62.9 Polyneuropathy, unspecified; E11.42 Type 2 diabetes mellitus with diabetic polyneuropathy; Z79.84 Long term (current) use of oral hypoglycemic drugs | CPT/HCPCS: 99213 ==

== ENCOUNTER → 2023-08-24 13:26 | Outpatient (BNVA) | payer MEDICARE, SELFPAY | PROVIDERS: PCP Internal Medicine; Visit Provider Internal Medicine | DX: E05.90 Thyrotoxicosis, unspecified without thyrotoxic crisis or storm (principal); E55.9 Vitamin D deficiency, unspecified; E11.9 Type 2 diabetes mellitus without complications; R03.0 Elevated blood-pressure reading, without diagnosis of hypertension; Z79.84 Long term (current) use of oral hypoglycemic drugs | CPT/HCPCS: 36415; 80053; 80061; 82044; 83036; 84439; 84443; 84480; 99214 ==

== ENCOUNTER → 2023-09-15 08:31 | Outpatient (BNVA) | payer MEDICARE, SELFPAY | PROVIDERS: PCP Internal Medicine; Visit Provider Specialist | DX: Z96.652 Presence of left artificial knee joint (principal) | CPT/HCPCS: 73560; 73565; 99213 ==

== ENCOUNTER 2023-10-04 10:27 | Outpatient (CLI) | payer MEDICARE, SELFPAY ==
--- NOTE | 2023-10-04 11:00 | MR_ITS ---
WS: [id number] MRI LUMBAR SPINE NONCONTRAST HISTORY: Back Pain COMPARISON: 07/14/2013 TECHNIQUE: Sagittal and axial multisequence imaging is submitted. C6-7: Small central disc protrusion contacts the ventral cervical cord. Progression of degenerative LEFT scoliosis lumbar spine since 2013. No acute fractures or marrow matthew a. L3 anterolisthesis by 5 mm. Mild disc space narrowing at L2-3 and L3-4. Conus terminates normally at L1-2 disc level. L1-L2: Mild disc bulging and bilateral facet arthritis. Mild subarticular recess encroachment. L2-L3: Mild diffuse annular disc bulging with moderate ligamentum flavum and facet joint arthritis. M ild osteophytosis. Mild central stenosis with deformity and narrowing of the RIGHT subarticular reces s. Deformity and contact on the traversing RIGHT L3 nerve root. Lesser encroachment upon the LEFT L3 nerve root. L3-L4: Diffuse annular disc bulging with osteophytic ridging. Central disc protrusion with ligamentum flavum and facet arthritis. Severe central and bilateral subarticular recess stenosis and moderate t o severe RIGHT foraminal stenosis. Mild LEFT foraminal stenosis. There is significant contact on the traversing L4 nerve roots and the exiting RIGHT L3 nerve root. L4-L5: Diffuse annular disc bulging with moderate facet joint arthritis. Mild disc encroachment upon the subarticular recesses. Mild bilateral subarticular recess and foraminal stenosis. L5-S1: Bilateral facet joint arthritis. RIGHT renal cyst 2.8 cm. MR/MR lumbar spine wo con* [id number] IMPRESSION: 1. Progression of degenerative levoscoliosis lumbar spine since 2013. 2. L3 anterolisthesis by 5 mm. 3. L3-4: Severe central with bilateral subarticular recess, moderate to severe RIGHT foraminal stenosis and mild LEFT foraminal stenosis. Stenosis due to dis c disease, anterolisthesis, facet and ligamentum flavum disease. 4. L2-3: Mild central and subarticular recess stenosis. Moderate RIGHT subarti cular recess encroachment. Most significant contact on the traversing RIGHT L3 nerve root. 5. L4-5: Mild subarticular recess and foraminal stenosis.
== END 2023-10-04 10:28 | disposition home or self-care (01) ==
LOC: RAD 10:27
PROVIDERS: PCP Internal Medicine; Visit Provider Orthopaedic Surgery
DX: M48.061 Spinal stenosis, lumbar region without neurogenic claudication (principal); M41.86 Other forms of scoliosis, lumbar region; M99.63 Osseous and subluxation stenosis of intervertebral foramina of lumbar region; M50.20 Other cervical disc displacement, unspecified cervical region; M51.36 Other intervertebral disc degeneration, lumbar region; M47.896 Other spondylosis, lumbar region; M47.898 Other spondylosis, sacral and sacrococcygeal region
CPT/HCPCS: 72148

== ENCOUNTER → 2023-10-07 10:39 | Outpatient (BNVA) | payer MEDICARE, SELFPAY | PROVIDERS: PCP Internal Medicine; Visit Provider Orthopaedic Surgery | DX: M48.062 Spinal stenosis, lumbar region with neurogenic claudication (principal) | CPT/HCPCS: 99214 ==

== ENCOUNTER → 2023-10-11 08:24 | Outpatient (BNVA) | payer MEDICARE, SELFPAY | PROVIDERS: PCP Internal Medicine; Visit Provider Specialist | DX: M70.61 Trochanteric bursitis, right hip | CPT/HCPCS: 20610; 73502; 99214; J1100; J2795; J3301 ==

== ENCOUNTER 2023-11-08 10:02 | Outpatient (CLI) | payer MEDICARE, SELFPAY ==
[2023-11-08 10:47] LABS: Creatinine Urine, Random 51 mg/dL (28-217); Microalbumin Random Urine 7 ug/dL (0-20)
[2023-11-08 10:51] LABS: Microalbum Creatinine Ratio Ur 137 mg/dL (0-20)
[2023-11-08 10:53] LABS: Alanine Aminotransferase 18 U/L (0-33); Albumin Level 3.8 g/dL (3.5-5.2); Alkaline Phosphatase 90 U/L (35-105); Anion Gap 18.2 (5-19); Aspartate Amino Transferase 13 U/L (0-32); Blood Urea Nitrogen 18 mg/dL (8-23); Carbon Dioxide 22 mmol/L (22-29); Chloride 102 mmol/L (98-107); Chol HDL Ratio 6.57 mg/dL (0.0-4.40); Cholesterol 302 mg/dL (0-200); Free T4 Free Thyroxine 0.92 ng/dL (0.82-1.77); Globulin 2.6 g/dL (1.3-4.6); Glucose 266 mg/dL (65-115); HDL Cholesterol 46 mg/dL (60-100); LDL Cholesterol Calculated 197 mg/dL (50-129); LDL HDL Ratio 4.28 RATIO (0.00-3.22); Osmolality Calculated 295 mOsm/kg (285-295); Potassium 5.2 mmol/L (3.5-5.1); Sodium 137 mmol/L (136-145); Thyroid Stimulating Hormone 7.03 uIU/mL (0.27-4.20); Total Bilirubin 0.2 mg/dL (0.15-1.2); Total Protein 6.4 g/dL (6.6-8.7); Triglycerides 293 mg/dL (0-150)
[2023-11-08 11:36] LABS: Estmated Average Glucose 332; Hemoglobin A1C 13.2 % (4.0-6.0)
[2023-11-09 12:44] LABS: T3 Total 43 ng/dL (76-181)
== END 2023-11-08 10:03 | disposition home or self-care (01) ==
LOC: LAB 10:04
PROVIDERS: PCP Internal Medicine; Visit Provider Internal Medicine
DX: E05.90 Thyrotoxicosis, unspecified without thyrotoxic crisis or storm (principal); E11.9 Type 2 diabetes mellitus without complications; E55.9 Vitamin D deficiency, unspecified
CPT/HCPCS: 36415; 80053; 80061; 82044; 83036; 84439; 84443; 84480

== ENCOUNTER → 2023-11-09 12:53 | Outpatient (BNVA) | payer MEDICARE, SELFPAY | PROVIDERS: PCP Internal Medicine; Visit Provider Podiatrist Foot & Ankle Surgery | DX: Q82.8 Other specified congenital malformations of skin (principal); B35.1 Tinea unguium; G62.9 Polyneuropathy, unspecified; E05.90 Thyrotoxicosis, unspecified without thyrotoxic crisis or storm; R03.0 Elevated blood-pressure reading, without diagnosis of hypertension; E55.9 Vitamin D deficiency, unspecified; Z79.84 Long term (current) use of oral hypoglycemic drugs; Z79.4 Long term (current) use of insulin; E11.42 Type 2 diabetes mellitus with diabetic polyneuropathy | CPT/HCPCS: 11055; 11721; 36415; 80053; 84681; 86337; 86341; 99214 ==

== ENCOUNTER 2024-01-10 09:12 | Outpatient (CLI) | payer MEDICARE, SELFPAY ==
[2024-01-10 09:47] LABS: Estmated Average Glucose 295; Hemoglobin A1C 11.9 % (4.0-6.0)
[2024-01-10 10:01] LABS: Creatinine Urine, Random 67 mg/dL (28-217); Microalbumin Random Urine 6 ug/dL (0-20)
[2024-01-10 10:09] LABS: Microalbum Creatinine Ratio Ur 90 mg/dL (0-20)
[2024-01-10 10:16] LABS: 25 Hydroxy Vitamin D 18 ng/mL (30-100); Alanine Aminotransferase 20 U/L (0-33); Albumin Level 3.7 g/dL (3.5-5.2); Alkaline Phosphatase 104 U/L (35-105); Anion Gap 11.9 (5-19); Aspartate Amino Transferase 20 U/L (0-32); Blood Urea Nitrogen 20 mg/dL (8-23); Calcium 9.1 mg/dL (8.5-10.5); Carbon Dioxide 28 mmol/L (22-29); Chloride 100 mmol/L (98-107); Chol HDL Ratio 10.47 mg/dL (0.0-4.40); Cholesterol 377 mg/dL (0-200); Globulin 2.8 g/dL (1.3-4.6); Glucose 224 mg/dL (65-115); HDL Cholesterol 36 mg/dL (60-100); LDL Cholesterol Calculated 273 mg/dL (50-129); LDL HDL Ratio 7.58 RATIO (0.00-3.22); Osmolality Calculated 290 mOsm/kg (285-295); Potassium 4.9 mmol/L (3.5-5.1); Sodium 135 mmol/L (136-145); Thyroid Stimulating Hormone 13.08 uIU/mL (0.27-4.20); Total Bilirubin 0.2 mg/dL (0.15-1.2); Total Protein 6.5 g/dL (6.6-8.7); Triglycerides 340 mg/dL (0-150); Vitamin B12 496 pg/mL (232-1245)
[2024-01-10 10:49] LABS: Free T4 Free Thyroxine 0.79 ng/dL (0.82-1.77)
[2024-01-11 07:25] LABS: T3 Total 41 ng/dL (76-181)
== END 2024-01-10 09:13 | disposition home or self-care (01) ==
LOC: LAB 09:13
PROVIDERS: PCP Internal Medicine; Visit Provider Internal Medicine
DX: E55.9 Vitamin D deficiency, unspecified (principal); E11.9 Type 2 diabetes mellitus without complications; E05.90 Thyrotoxicosis, unspecified without thyrotoxic crisis or storm
CPT/HCPCS: 36415; 80053; 80061; 82044; 82306; 82607; 83036; 84439; 84443; 84480

== ENCOUNTER → 2024-01-11 09:47 | Outpatient (BNVA) | payer MEDICARE, SELFPAY | PROVIDERS: PCP Internal Medicine; Visit Provider Podiatrist Foot & Ankle Surgery | DX: Q82.8 Other specified congenital malformations of skin (principal); B35.1 Tinea unguium; G62.9 Polyneuropathy, unspecified; E11.42 Type 2 diabetes mellitus with diabetic polyneuropathy; Z79.4 Long term (current) use of insulin; R03.0 Elevated blood-pressure reading, without diagnosis of hypertension; E55.9 Vitamin D deficiency, unspecified; E05.00 Thyrotoxicosis with diffuse goiter without thyrotoxic crisis or storm | CPT/HCPCS: 11055; 99214 ==

== ENCOUNTER → 2024-01-25 13:35 | Outpatient (BNVA) | payer MEDICARE, SELFPAY | PROVIDERS: PCP Internal Medicine; Visit Provider Internal Medicine | DX: E05.90 Thyrotoxicosis, unspecified without thyrotoxic crisis or storm (principal); E11.9 Type 2 diabetes mellitus without complications | CPT/HCPCS: 36415; 80048; 84439; 84443 ==

== ENCOUNTER 2024-01-31 12:54 | Outpatient (CLI) | payer MEDICARE, SELFPAY ==
--- NOTE | 2024-01-31 12:57 | MM_ITS ---
WS: [id number] BILATERAL SCREENING DIGITAL TOMOSYNTHESIS MAMMOGRAM WITH CAD HISTORY: SCREENING COMPARISON: 08/26/2022, 08/22/2021 Bilateral CC and MLO views with tomosynthesis and synthetic mammography submitted. Computer aided det ection analyzed. Breast composition: There are scattered areas of fibroglandular density. No suspicious masses, microc alcifications or architectural distortion. Scattered calcifications and arterial calcifications in ea ch breast. MM/MM scr BI tomosynthesis [id number] IMPRESSION: BI-RADS: 2 - Benign. FOLLOW UP: 1 Year Follow-up
== END 2024-01-31 12:55 | disposition home or self-care (01) ==
LOC: RAD 12:54
PROVIDERS: PCP Internal Medicine; Visit Provider Internal Medicine
DX: Z12.31 Encounter for screening mammogram for malignant neoplasm of breast (principal); R92.323 Mammographic fibroglandular density, bilateral breasts; R92.1 Mammographic calcification found on diagnostic imaging of breast
CPT/HCPCS: 77063; 77067

== ENCOUNTER → 2024-02-08 12:00 | Outpatient (BNVA) | payer MEDICARE, SELFPAY | PROVIDERS: PCP Internal Medicine; Visit Provider Internal Medicine | DX: R03.0 Elevated blood-pressure reading, without diagnosis of hypertension; E55.9 Vitamin D deficiency, unspecified; E11.9 Type 2 diabetes mellitus without complications; E05.00 Thyrotoxicosis with diffuse goiter without thyrotoxic crisis or storm; Z79.4 Long term (current) use of insulin | CPT/HCPCS: 99214 ==

== ENCOUNTER → 2024-03-14 08:19 | Outpatient (BNVA) | payer MEDICARE, SELFPAY | PROVIDERS: PCP Internal Medicine; Visit Provider Podiatrist Foot & Ankle Surgery | DX: B35.1 Tinea unguium (principal); Q82.8 Other specified congenital malformations of skin; G62.9 Polyneuropathy, unspecified; E11.42 Type 2 diabetes mellitus with diabetic polyneuropathy; Z79.4 Long term (current) use of insulin | CPT/HCPCS: 11056; 11721 ==

== ENCOUNTER → 2024-03-16 14:54 | Outpatient (BNVA) | payer MEDICARE, SELFPAY | PROVIDERS: PCP Internal Medicine; Visit Provider Orthopaedic Surgery | DX: M70.61 Trochanteric bursitis, right hip (principal); M48.062 Spinal stenosis, lumbar region with neurogenic claudication | CPT/HCPCS: 99213 ==

== ENCOUNTER 2024-04-05 12:37 | Outpatient (CLI) | payer MEDICARE, SELFPAY ==
[2024-04-05 13:43] LABS: Creatinine Urine, Random 51 mg/dL (28-217); Microalbumin Random Urine 6 ug/dL (0-20)
[2024-04-05 13:53] LABS: Microalbum Creatinine Ratio Ur 118 mg/dL (0-20)
[2024-04-05 14:00] LABS: 25 Hydroxy Vitamin D 25 ng/mL (30-100); Alanine Aminotransferase 12 U/L (0-33); Albumin Level 3.8 g/dL (3.5-5.2); Alkaline Phosphatase 118 U/L (35-105); Anion Gap 13.9 (5-19); Aspartate Amino Transferase 15 U/L (0-32); Blood Urea Nitrogen 12 mg/dL (8-23); Calcium 9.5 mg/dL (8.5-10.5); Carbon Dioxide 28 mmol/L (22-29); Chloride 100 mmol/L (98-107); Chol HDL Ratio 8.89 mg/dL (0.0-4.40); Cholesterol 338 mg/dL (0-200); Globulin 2.7 g/dL (1.3-4.6); Glucose 291 mg/dL (65-115); HDL Cholesterol 38 mg/dL (60-100); LDL Cholesterol Calculated 252 mg/dL (50-129); LDL HDL Ratio 6.63 RATIO (0.00-3.22); Osmolality Calculated 294 mOsm/kg (285-295); Potassium 4.9 mmol/L (3.5-5.1); Sodium 137 mmol/L (136-145); Thyroid Stimulating Hormone 0.94 uIU/mL (0.27-4.20); Total Bilirubin 0.3 mg/dL (0.15-1.2); Total Protein 6.5 g/dL (6.6-8.7); Triglycerides 241 mg/dL (0-150)
[2024-04-05 15:02] LABS: Estmated Average Glucose 303; Hemoglobin A1C 12.2 % (4.0-6.0)
[2024-04-05 15:28] LABS: Free T4 Free Thyroxine 0.91 ng/dL (0.82-1.77)
[2024-04-06 04:39] LABS: T3 Total 75 ng/dL (76-181)
== END 2024-04-05 12:38 | disposition home or self-care (01) ==
PROVIDERS: PCP Internal Medicine; Visit Provider Internal Medicine
DX: M70.61 Trochanteric bursitis, right hip (principal); E55.9 Vitamin D deficiency, unspecified; E05.90 Thyrotoxicosis, unspecified without thyrotoxic crisis or storm; E11.9 Type 2 diabetes mellitus without complications
CPT/HCPCS: 20610; 36415; 80053; 80061; 82044; 82306; 83036; 84439; 84443; 84480; J1100; J2795; J3301

== ENCOUNTER → 2024-04-12 09:29 | Outpatient (BNVA) | payer MEDICARE, SELFPAY | PROVIDERS: PCP Internal Medicine; Visit Provider Internal Medicine | DX: E05.90 Thyrotoxicosis, unspecified without thyrotoxic crisis or storm (principal); E11.9 Type 2 diabetes mellitus without complications; E55.9 Vitamin D deficiency, unspecified; R03.0 Elevated blood-pressure reading, without diagnosis of hypertension; E05.00 Thyrotoxicosis with diffuse goiter without thyrotoxic crisis or storm; E78.49 Other hyperlipidemia | CPT/HCPCS: 99214 ==

== ENCOUNTER → 2024-06-20 07:52 | Outpatient (BNVA) | payer MEDICARE, SELFPAY | PROVIDERS: PCP Internal Medicine; Visit Provider Podiatrist Foot & Ankle Surgery | DX: B35.1 Tinea unguium (principal); Q82.8 Other specified congenital malformations of skin; G62.9 Polyneuropathy, unspecified; E11.42 Type 2 diabetes mellitus with diabetic polyneuropathy; Z79.4 Long term (current) use of insulin | CPT/HCPCS: 11056; 11721 ==

== ENCOUNTER → 2024-07-07 09:06 | Outpatient (BNVA) | payer MEDICARE, SELFPAY | PROVIDERS: PCP Internal Medicine; Visit Provider Specialist | DX: M70.61 Trochanteric bursitis, right hip (principal); Z71.89 Other specified counseling | CPT/HCPCS: 20610; J1100; J2795; J3301; J9999 ==

== ENCOUNTER → 2024-07-18 14:19 | Outpatient (BNVA) | payer MEDICARE, SELFPAY | PROVIDERS: PCP Internal Medicine; Visit Provider Nurse Practitioner Family | DX: M54.9 Dorsalgia, unspecified (principal); M48.062 Spinal stenosis, lumbar region with neurogenic claudication | CPT/HCPCS: 99214 ==

== ENCOUNTER → 2024-07-25 10:23 | Outpatient (BNVA) | payer MEDICARE, SELFPAY | PROVIDERS: PCP Internal Medicine; Visit Provider Nurse Practitioner Family | DX: M48.062 Spinal stenosis, lumbar region with neurogenic claudication (principal); M79.18 Myalgia, other site | CPT/HCPCS: 20553; 99214; J1010; J3490 ==

== ENCOUNTER 2024-08-08 10:56 | Outpatient (CLI) | payer MEDICARE, SELFPAY ==
[2024-08-08 11:49] LABS: Creatinine Urine, Random 74 mg/dL (28-217); Microalbumin Random Urine 6 ug/dL (0-20)
[2024-08-08 11:50] LABS: Microalbum Creatinine Ratio Ur 81 mg/dL (0-20)
[2024-08-08 12:12] LABS: 25 Hydroxy Vitamin D 35 ng/mL (30-100); Alanine Aminotransferase 13 U/L (0-33); Albumin Level 3.6 g/dL (3.5-5.2); Alkaline Phosphatase 105 U/L (35-105); Anion Gap 14.7 (5-19); Aspartate Amino Transferase 10 U/L (0-32); Blood Urea Nitrogen 30 mg/dL (8-23); Calcium 8.9 mg/dL (8.5-10.5); Carbon Dioxide 27 mmol/L (22-29); Chloride 104 mmol/L (98-107); Chol HDL Ratio 3.56 mg/dL (0.0-4.40); Cholesterol 146 mg/dL (0-200); Glucose 175 mg/dL (65-115); HDL Cholesterol 41 mg/dL (60-100); LDL Cholesterol Calculated 61 mg/dL (50-129); LDL HDL Ratio 1.49 RATIO (0.00-3.22); Osmolality Calculated 302 mOsm/kg (285-295); Potassium 4.7 mmol/L (3.5-5.1); Sodium 141 mmol/L (136-145); Thyroid Stimulating Hormone 0.24 uIU/mL (0.27-4.20); Total Bilirubin 0.2 mg/dL (0.15-1.2); Total Protein 6.6 g/dL (6.6-8.7); Triglycerides 221 mg/dL (0-150)
[2024-08-08 12:14] LABS: Estmated Average Glucose 286; Hemoglobin A1C 11.6 % (4.0-6.0)
[2024-08-08 12:34] LABS: Free T4 Free Thyroxine 1.07 ng/dL (0.82-1.77)
== END 2024-08-08 10:57 | disposition home or self-care (01) ==
LOC: LAB 10:57
PROVIDERS: PCP Family Medicine; Visit Provider Internal Medicine
DX: E11.9 Type 2 diabetes mellitus without complications (principal); E05.90 Thyrotoxicosis, unspecified without thyrotoxic crisis or storm; E55.9 Vitamin D deficiency, unspecified; M48.062 Spinal stenosis, lumbar region with neurogenic claudication
CPT/HCPCS: 36415; 80053; 80061; 82044; 82306; 83036; 84439; 84443; 99213

== ENCOUNTER → 2024-08-09 08:12 | Outpatient (BNVA) | payer MEDICARE, SELFPAY | PROVIDERS: PCP Internal Medicine; Visit Provider Internal Medicine | DX: E05.90 Thyrotoxicosis, unspecified without thyrotoxic crisis or storm (principal); E55.9 Vitamin D deficiency, unspecified; E11.9 Type 2 diabetes mellitus without complications; E05.00 Thyrotoxicosis with diffuse goiter without thyrotoxic crisis or storm; E78.49 Other hyperlipidemia; R03.0 Elevated blood-pressure reading, without diagnosis of hypertension | CPT/HCPCS: 99214 ==

== ENCOUNTER → 2024-08-15 12:40 | Outpatient (BNVA) | payer MEDICARE, SELFPAY | PROVIDERS: PCP Internal Medicine; Visit Provider Dermatology | DX: L72.0 Epidermal cyst (principal); L82.1 Other seborrheic keratosis; L81.4 Other melanin hyperpigmentation; D69.2 Other nonthrombocytopenic purpura; L82.0 Inflamed seborrheic keratosis; L53.8 Other specified erythematous conditions; L29.89 Other pruritus; R20.8 Other disturbances of skin sensation | CPT/HCPCS: 17110; 99203 ==

== ENCOUNTER → 2024-08-22 09:27 | Outpatient (BNVA) | payer MEDICARE, SELFPAY | PROVIDERS: PCP Internal Medicine; Visit Provider Podiatrist Foot & Ankle Surgery | DX: E11.42 Type 2 diabetes mellitus with diabetic polyneuropathy (principal); B35.1 Tinea unguium; Q82.8 Other specified congenital malformations of skin; G62.9 Polyneuropathy, unspecified; Z79.4 Long term (current) use of insulin | CPT/HCPCS: 11055; 11721 ==

== ENCOUNTER → 2024-10-02 09:19 | Outpatient (BNVA) | payer MEDICARE, SELFPAY | PROVIDERS: PCP Family Medicine; Visit Provider Nurse Practitioner Family | DX: M48.062 Spinal stenosis, lumbar region with neurogenic claudication (principal) | CPT/HCPCS: 99214 ==

== ENCOUNTER → 2024-10-13 08:36 | Outpatient (BNVA) | payer MEDICARE, SELFPAY | PROVIDERS: PCP Family Medicine; Visit Provider Specialist | DX: M70.61 Trochanteric bursitis, right hip (principal) | CPT/HCPCS: 20610; J1100; J2795; J3301; J9999 ==

== ENCOUNTER 2024-10-20 10:16 | Outpatient (RCR) | payer MEDICARE, SELFPAY | END 2024-10-23 23:59 | disposition home or self-care (01) | LOC: SPT 10:16 | PROVIDERS: PCP Family Medicine; Visit Provider Nurse Practitioner Family | DX: M54.9 Dorsalgia, unspecified (principal) | CPT/HCPCS: 97161 ==

== ENCOUNTER 2024-10-24 05:00 | Outpatient (RCR) | payer MEDICARE, SELFPAY | END 2024-11-23 23:59 | disposition home or self-care (01) | LOC: SPT 05:00 | PROVIDERS: PCP Family Medicine; Visit Provider Nurse Practitioner Family | DX: M54.9 Dorsalgia, unspecified (principal) | CPT/HCPCS: 97110 ==

== ENCOUNTER → 2024-10-26 09:21 | Outpatient (BNVA) | payer MEDICARE, SELFPAY | PROVIDERS: PCP Family Medicine; Visit Provider Internal Medicine | DX: E11.9 Type 2 diabetes mellitus without complications (principal); E05.90 Thyrotoxicosis, unspecified without thyrotoxic crisis or storm; E78.49 Other hyperlipidemia; E05.00 Thyrotoxicosis with diffuse goiter without thyrotoxic crisis or storm; E55.9 Vitamin D deficiency, unspecified | CPT/HCPCS: 36415; 80053; 80061; 82044; 82306; 83036; 84439; 84443; 84480; 99214 ==

== ENCOUNTER → 2024-11-03 09:03 | Outpatient (BNVA) | payer MEDICARE, SELFPAY | PROVIDERS: PCP Family Medicine; Visit Provider Nurse Practitioner Family | DX: M48.062 Spinal stenosis, lumbar region with neurogenic claudication (principal) | CPT/HCPCS: 99214 ==

== ENCOUNTER 2024-11-14 12:35 | Outpatient (CLI) | payer MEDICARE, SELFPAY ==
--- NOTE | 2024-11-14 12:41 | USCV_ITS ---
Milagro Olivarez Age: 74 Gender: F : 1950 Exam Date: 11/14/2024 12:55 Ordering Phys: Jersey Perez MD Technologist: JANIE [place] [facility] [place]ication: SoB BP: 142 / 80 HR: 55 Rhythm: Sinus Technical Quality: Adequate MEASUREMENTS (Male / Female) Normal Values 2D ECHO LV Diastolic Diameter PLAX 5.7 cm 4.2 - 5.9 / 3.9 - 5.3 cm IVS Diastolic Thickness 0.9 cm 0.6 - 1.0 / 0.6 - 0.9 cm IVS Systolic Thickness 1.2 cm LVPW Diastolic Thickness 1.4 cm 0.6 - 1.0 / 0.6 - 0.9 cm LVPW Systolic Thickness 1.9 cm LVOT Diameter 2.1 cm LV Ejection Fraction 2D Teich 62.4 % LV Ejection Fraction MOD 4C 57.1 % LV Ejection Fraction MOD 2C 63.8 % LV Ejection Fraction 2C AL 63.1 % LA Diameter 3.8 cm RA Systolic Volume 4C AL 35.3 ml RA Systolic Volume 4C MOD 34.0 ml LA Sys Volume AL 75.3 cm cubed LA Sys Volume Index AL 36.5 cm cubed/m squared Aorta at Sinotubular Diameter 2.3 cm IVC Diameter 2.4 cm M-MODE LA Ao Ratio MM 1.8 MV E Point Septal Separation 1.3 cm AV Cusp Separation MM 2.0 cm DOPPLER AV Peak Velocity 126.0 cm/s LVOT Peak Velocity 82.0 cm/s AV Area Cont Eq vti 2.4 cm squared AV Area Cont Eq pk 2.2 cm squared MV Peak Velocity 79.0 cm/s MV Area PHT 3.8 cm squared Mitral E to A Ratio 1.3 TR Peak Velocity 95.0 cm/s TR Peak Gradient 3.6 mmHg TV Peak E Velocity 56.0 cm/s PV Peak Velocity 88.0 cm/s FINDINGS Left Ventricle Normal left ventricular size, systolic function and wall thickness, with no regional wall motion abnormalities. Left ventricular ejection fraction is estimated at 60 %. Grade II/IV diastolic dysfunction, moderately elevated filling pressures. Right Ventricle The right ventricle is normal in size and function. Right Atrium The right atrium is normal in size. Left Atrium Moderately increased left atrial size. Mitral Valve Structurally normal mitral valve without significant stenosis or prolapse. There is no mitral regurgitation. Aortic Valve Mild aortic valve calcification. No aortic valve stenosis. Trace aortic valve regurgitation. Tricuspid Valve Moderate tricuspid valve regurgitation. Pulmonic Valve Structurally normal pulmonic valve without significant stenosis. There is no pulmonic regurgitation. Pericardium Normal pericardium without effusion. Aorta Normal ascending aorta dimension. IVC The inferior vena cava appears normal. CONCLUSIONS Normal left ventricular size, systolic function and wall thickness, with no regional wall motion abnormalities. Left ventricular ejection fraction is estimated at 60 %. Grade II/IV diastolic dysfunction, moderately elevated filling pressures. Moderate tricuspid valve regurgitation. There is no pericardial effusion. Right atrial pressure is around 5 mm of mercury. Nila Willoughby MD (Electronically Signed) Final Date: 17 November 2024 14:08 S
== END 2024-11-14 12:36 | disposition home or self-care (01) ==
LOC: RAD 12:36
PROVIDERS: PCP Family Medicine; Visit Provider Family Medicine
DX: R06.09 Other forms of dyspnea (principal); R93.1 Abnormal findings on diagnostic imaging of heart and coronary circulation; I35.8 Other nonrheumatic aortic valve disorders; I07.1 Rheumatic tricuspid insufficiency
CPT/HCPCS: 93306

== ENCOUNTER → 2024-11-23 09:35 | Outpatient (BNVA) | payer MEDICARE, SELFPAY | PROVIDERS: PCP Family Medicine; Visit Provider Nurse Practitioner Family | DX: M48.062 Spinal stenosis, lumbar region with neurogenic claudication (principal) | CPT/HCPCS: 99214 ==

== ENCOUNTER → 2024-11-29 11:24 | Outpatient (BNVA) | payer MEDICARE, SELFPAY | PROVIDERS: PCP Family Medicine; Visit Provider Internal Medicine | DX: E11.9 Type 2 diabetes mellitus without complications (principal); E05.00 Thyrotoxicosis with diffuse goiter without thyrotoxic crisis or storm; E78.49 Other hyperlipidemia; E55.9 Vitamin D deficiency, unspecified; R03.0 Elevated blood-pressure reading, without diagnosis of hypertension | CPT/HCPCS: 99214 ==

== ENCOUNTER → 2024-12-13 10:29 | Outpatient (BNVA) | payer MEDICARE, SELFPAY | PROVIDERS: PCP Family Medicine; Visit Provider Anesthesiology Pain Medicine | DX: M54.16 Radiculopathy, lumbar region (principal); M48.062 Spinal stenosis, lumbar region with neurogenic claudication | CPT/HCPCS: 64483; 64484; J1100; J3490; J9999 ==

== ENCOUNTER → 2025-01-02 10:38 | Outpatient (BNVA) | payer MEDICARE, SELFPAY | PROVIDERS: PCP Family Medicine; Visit Provider Nurse Practitioner Family | DX: M48.062 Spinal stenosis, lumbar region with neurogenic claudication (principal) | CPT/HCPCS: 99214 ==

== ENCOUNTER → 2025-01-04 08:59 | Outpatient (BNVA) | payer MEDICARE, SELFPAY | PROVIDERS: PCP Family Medicine; Visit Provider Podiatrist Foot & Ankle Surgery | DX: E11.42 Type 2 diabetes mellitus with diabetic polyneuropathy (principal); B35.1 Tinea unguium; Q82.8 Other specified congenital malformations of skin; G62.9 Polyneuropathy, unspecified; L84 Corns and callosities; Z79.4 Long term (current) use of insulin | CPT/HCPCS: 11055; 11721 ==

== ENCOUNTER → 2025-01-17 13:48 | Outpatient (BNVA) | payer MEDICARE, SELFPAY | PROVIDERS: PCP Family Medicine; Visit Provider Anesthesiology Pain Medicine | DX: M47.816 Spondylosis without myelopathy or radiculopathy, lumbar region (principal) | CPT/HCPCS: 64493; 64494; 64495; J3490; J9999 ==

== ENCOUNTER → 2025-01-23 08:53 | Outpatient (BNVA) | payer MEDICARE, SELFPAY | PROVIDERS: PCP Family Medicine; Visit Provider Nurse Practitioner Family | DX: M48.062 Spinal stenosis, lumbar region with neurogenic claudication (principal) | CPT/HCPCS: 99214 ==

== ENCOUNTER → 2025-01-23 15:49 | Outpatient (BNVA) | payer MEDICARE, SELFPAY | PROVIDERS: PCP Family Medicine; Visit Provider Internal Medicine Cardiovascular Disease | DX: I07.1 Rheumatic tricuspid insufficiency (principal); R60.0 Localized edema; R06.09 Other forms of dyspnea; I12.9 Hypertensive chronic kidney disease with stage 1 through stage 4 chronic kidney disease, or unspecified chronic kidney disease; N18.2 Chronic kidney disease, stage 2 (mild); E11.22 Type 2 diabetes mellitus with diabetic chronic kidney disease; Z79.4 Long term (current) use of insulin | CPT/HCPCS: 99204 ==

== ENCOUNTER 2025-01-24 14:49 | Outpatient (CLI) | payer MEDICARE, SELFPAY | END 2025-01-24 14:50 | disposition home or self-care (01) | LOC: RAD 01-26 12:04 | PROVIDERS: PCP Family Medicine; Visit Provider Internal Medicine Cardiovascular Disease | DX: M70.61 Trochanteric bursitis, right hip (principal) | CPT/HCPCS: 20610; J1100; J2795; J3301; J9999 ==

== ENCOUNTER 2025-02-08 08:44 | Outpatient (CLI) | payer MEDICARE, SELFPAY ==
[2025-02-08 09:22] VITALS: BMI 32.5
--- NOTE | 2025-02-08 09:22 | ECG_ITS ---
[facility]ern[facility] Test Date: 2025-02-08 Pat Name: Milagro Olivarez Department: Room: Gender: Female Jack Frame Tender: : 1950 Requested By: Nila Willoughby Order Number: [id number] Brendon MD: Ceferino Ramirez M.D. Interpretive Statements Procedure: A total of 0.4 mg of Lexiscan was infused over 20 seconds. The stress phase was continued for a total of 5 minutes. Sestamibi was injected 20 seconds after the Lexiscan infusion. Findings:The patient's resting baseline blood pressure was 149/81 with a heart rate of 59. After receiving Lexiscan the patient's blood pressure had no significant change. The patient's heart rate increased to a maximum of 77 bpm. At the end of recovery the patient's blood pressure was 150/73 with a heart rate of 67 bpm. The baseline EKG showed sinus bradycardia with heart rate of 59 and was otherwise unremarkable. no ST-T wave changes. Conclusion: 1. Normal EKG response to Lexiscan infusion 2. No Lexiscan induced chest pain or cardiac arrhythmia. 3. Normal blood pressure and heart rate response. 4. Nuclear myocardial perfusion scan pending; see separate report. Electronically Signed On 02-08-2025 13:11:49 CDT by Ceferino Ramirez M.D. [email or web address]
--- NOTE | 2025-02-08 09:22 | NMCV_ITS ---
NM sharad perf SPECT r/s* [id number] Milagro Olivarez Age: 74 Gender: F : 1950 Exam Date: 02/08/2025 10:16 Ordering Phys: Nila Willoughby MD ([email or web address]) Technologist: TILA Villalobos Exam Location: [facility] Indications: cp STRESS TEST Please see separate stress test report in [facility] for full findings IMAGE PROTOCOL Rest/Stress 1 Lexiscan Day Radiopharmaceutical Dose (mCi) Administration Site Administered by Rest: Tc-99m 10.2 IV TILA Villalobos Sestamibi Stress:Tc-99m 32.4 IV Mari Rees, PEDIATRIC SPEECH THERAPIST Sestamibi Rest: 08-Feb-2025 60 Discovery 630 Stress: 08-Feb-2025 30 Discovery 630 0.4mg Lexiscan. Supine position only as patient was unable to lay prone. SPECT RESULTS Technical Quality: Good Raw Data Analysis: Normal Image Corrections: No attenuation or motion correction applied Summed Stress Score: 2 Summed Rest Score: 0 Summed Difference Score: 2 PERFUSION FINDINGS There is a small area of moderately reduced tracer counts in the mid inferolateral wall segment that resolves on the resting images. FUNCTIONAL RESULTS (calculated via Gated SPECT) Stress Image LV EF (%): 83 Stress EDV (mL):70 TID: 0.83 Stress ESV (mL):12 FUNCTIONAL FINDINGS: There is normal left ventricular systolic function. IMPRESSIONS 1. There is a small area of moderate ischemia in the mid inferolateral wall. 2. There is normal left ventricular systolic function. Ceferino Ramirez MD, FACC (Electronically Signed) Final Date: 08 February 2025 12:55 S
[2025-02-08 11:00] VITALS: BP 150/73; PULSE 66
== END 2025-02-08 08:45 | disposition home or self-care (01) ==
LOC: CDL 08:51
PROVIDERS: PCP Family Medicine; Visit Provider Internal Medicine Cardiovascular Disease
DX: R07.9 Chest pain, unspecified (principal); R94.39 Abnormal result of other cardiovascular function study
CPT/HCPCS: 36415; 78452; 93017; 96374; A9500; J2785

== ENCOUNTER → 2025-02-27 15:23 | Outpatient (BNVA) | payer MEDICARE, SELFPAY | PROVIDERS: PCP Family Medicine; Visit Provider Anesthesiology Pain Medicine | DX: M47.816 Spondylosis without myelopathy or radiculopathy, lumbar region (principal) | CPT/HCPCS: 64493; 64494; 64495; J3490; J9999 ==

== ENCOUNTER → 2025-03-06 09:41 | Outpatient (BNVA) | payer MEDICARE, SELFPAY | PROVIDERS: PCP Family Medicine; Visit Provider Nurse Practitioner Family | DX: M48.062 Spinal stenosis, lumbar region with neurogenic claudication (principal) | CPT/HCPCS: 99214 ==

== ENCOUNTER → 2025-03-14 13:51 | Outpatient (BNVA) | payer MEDICARE, SELFPAY | PROVIDERS: PCP Family Medicine; Visit Provider Anesthesiology Pain Medicine | DX: M47.816 Spondylosis without myelopathy or radiculopathy, lumbar region (principal) | CPT/HCPCS: 64635; 64636; J1100; J9999 ==

== ENCOUNTER → 2025-03-28 13:26 | Outpatient (BNVA) | payer MEDICARE, SELFPAY | PROVIDERS: PCP Family Medicine; Visit Provider Anesthesiology Pain Medicine | DX: M47.816 Spondylosis without myelopathy or radiculopathy, lumbar region (principal) | CPT/HCPCS: 64635; 64636; J1100; J9999 ==

== ENCOUNTER → 2025-04-03 08:33 | Outpatient (BNVA) | payer MEDICARE, SELFPAY | PROVIDERS: PCP Family Medicine; Visit Provider Anesthesiology Pain Medicine | DX: M48.062 Spinal stenosis, lumbar region with neurogenic claudication (principal) | CPT/HCPCS: 72100; 99214 ==

== ENCOUNTER → 2025-04-10 08:42 | Outpatient (BNVA) | payer MEDICARE, SELFPAY | PROVIDERS: PCP Family Medicine; Visit Provider Anesthesiology Pain Medicine | DX: M79.18 Myalgia, other site (principal); M48.062 Spinal stenosis, lumbar region with neurogenic claudication | CPT/HCPCS: 11055; 11721; 20553; 99213; 99214; J1010; J3490 ==

== ENCOUNTER → 2025-04-16 14:11 | Outpatient (BNVA) | payer MEDICARE, SELFPAY | PROVIDERS: PCP Family Medicine; Visit Provider Internal Medicine Endocrinology, Diabetes & Metabolism | DX: R03.0 Elevated blood-pressure reading, without diagnosis of hypertension (principal); E05.00 Thyrotoxicosis with diffuse goiter without thyrotoxic crisis or storm; E11.9 Type 2 diabetes mellitus without complications; E55.9 Vitamin D deficiency, unspecified; E78.49 Other hyperlipidemia | CPT/HCPCS: 99214 ==

== ENCOUNTER → 2025-04-25 14:31 | Outpatient (BNVA) | payer MEDICARE, SELFPAY | PROVIDERS: PCP Family Medicine; Visit Provider Internal Medicine Cardiovascular Disease | DX: I95.9 Hypotension, unspecified (principal) | CPT/HCPCS: 99214 ==